=== PATIENT | female | born 1970 | race Caucasian/White ===

== ENCOUNTER 2017-09-23 06:51 | Day surgery (SDC) | payer OTHER, BC ==
[2017-09-23] MEDS ORDERED: CEFAZOLIN/SWI 2gm 2 GM/20 ML SYR IV SCH (07:00)
[2017-09-23 07:10] LABS: Specific Gravity > 1.030 (1.005-1.030)
[2017-09-23] MEDS ORDERED: Ringers Lactate 1,000 ML IV ONE ×2 (07:36→10:07)
[2017-09-23] MEDS ORDERED: SCOPOLAMINE HYDROBROMIDE PATCH TD ONE (07:41)
[2017-09-23] MEDS ORDERED: NA CHLORIDE 0.9% 50 ML ONE (08:37)
[2017-09-23] MEDS ORDERED: VASOPRESSIN 20 UNIT/ML VIAL ONE (08:37)
[2017-09-23] MEDS ORDERED: FENTANYL CITR 100 MCG/2 ML ONE ×2 (08:39→09:31)
[2017-09-23] MEDS ORDERED: PROPOFOL 200 MG/20 ML VIAL IV ONE (08:39)
[2017-09-23] MEDS ORDERED: ROCURONIUM 50 MG/5 ML VIAL IV ONE (08:40)
[2017-09-23] MEDS ORDERED: LIDOCAINE 2% MPF 5 ML VIAL ONE (08:40)
[2017-09-23] MEDS ORDERED: ONDANSETRON 4 MG/2 ML VIAL ONE (08:41)
[2017-09-23] MEDS ORDERED: MIDAZOLAM HCL 2 MG/2 ML INJ ONE (08:43)
[2017-09-23] MEDS ORDERED: ALBUTEROL INHALER 60 PUFF/8 GM IH ONE (09:05)
[2017-09-23] MEDS ORDERED: DEXAMETHASONE 10 MG/ML VIAL ONE (09:06)
[2017-09-23] MEDS ORDERED: GLYCOPYRROLATE 0.2 MG/ML SYR ONE (09:22)
[2017-09-23] MEDS ORDERED: NEOSTIGMINE 1 MG/ML -5 ML SYRINGE ONE (09:31)
[2017-09-23] MEDS ORDERED: EPHEDRINE SULF 50 MG/5 ML SYR ONE (09:37)
[2017-09-23] MEDS: MEPERIDINE HCL 50 MG/ML AMP ONE ×2 (10:13→10:22)
[2017-09-23] MEDS ORDERED: HYDROCODONE/APAP 5/325 MG TAB ONE (11:09)
--- NOTE | 2017-09-23 20:09 | OP ---
Date of Procedure: 09/23/2017 Surgeon: Gaby Riley MD Preoperative Diagnoses: Heavy menstrual bleeding with regular cycles, dysmenorrhea, and desired ster ilization. Postoperative Diagnoses: Heavy menstrual bleeding with regular cycles, dysmenorrhea, and desired jael rilization. Procedures Performed: Hysteroscopy, endometrial ablation with HTA, laparoscopy, bilateral tubal liga tion with Falope rings. Anesthesia: General endotracheal. Specimens: None. Complications: None. Drains: None. Condition: Stable. Indications For Procedure: The patient is a 46-year-old with heavy bleeding and dysmenorrhea. She h as hypertension as well. Not a good candidate for oral contraceptives. After understanding the bene fits and risks of an endometrial ablation and tubal ligation, she was consented and brought to the OR . Description Of Procedure: The patient was given 2 g of Ancef preop. The patient was placed in a josé chayo lithotomy position after anesthesia. A pelvic exam was performed. Uterus was found to be about 10 week size, anteflexed. After abdomen, vulva, vagina, and perineum were prepped and draped in a st erile fashion. Lopez was placed to drain the bladder. The cervix was exposed with a bivalve speculu m. Anterior lip grasped with 2 Allis clamps. Direct hysteroscopy was performed after dilating the c ervix to about 18-Mongolian with dilators. Endometrium appeared to be unremarkable. No intracavitary l esions. Endometrial ablation HTA sheath that was primed already was used for the hysteroscopy, so we nt on to perform a cavity integrity test. There was no loss of fluid here. Then, the ablation cycle was started, a full 10 minute cycle with a 1.5 minute cooling cycle were all completed without inter ruption. There was a good ablation effect in the uterus. A VCare was inserted after the hysteroscope was removed. The Ray-Tecs were removed from the posterio r fornix. This area was then draped. A 1 cm infraumbilical incision was made with a scalpel using open laparoscopy technique. Fascia was exposed and incised and tagged with 0 Vicryl sutures. The peritoneum was entered bluntly. There was an adhesion of the omentum to the left of the midline, a single omental adhesion, this was left inta ct as this was not in my way to perform her tubal. The patient was placed in Trendelenburg position. After adequate insufflation, the suprapubic 5 mm port was placed after abdominal cavity was surveye d. There was micronodular change in both lobes of the liver. No liver masses were noted. The perit oneum appeared to be unremarkable. Omentum unremarkable as well. The patient was placed in T-cristel. Uterus appeared to be enlarged, but the tubes and ovaries appeared to be normal. The tubes were pic ked up, and they did not have any abnormal endometriosis or dilatation. So, there was no apparent en dometriosis to be found in the pelvic peritoneum on survey of the pelvic cavity. So went on to perfo rm a tubal ligation since there was no other indication for further surgery than that ligation. The 5 mm port was removed. An 8 mm port was placed for the Falope ring applicator. The 2 rings were loaded and the right tube about 5 cm from the proximal end was picked up, it was gradually milked in to the applicator and then the Falope ring deployed. With good application, good loop of tube was ob tained. Then, there was no bleeding. On the opposite side, similar test was performed pulling up an d milking the tube before the ring was applied. There was a good loop of tube inside the ring. Ther e was no bleeding at the mesosalpinx. Both tubes were well visualized, pictures taken, and there was minimal bleeding from the trocar site. The trocar was removed under direct vision in the suprapubic area. Then, the gas was desufflated. Lamont was removed. The fascia was closed with a 0 Vicryl borges ture. Retention sutures were placed. Tied together. The skin incisions were closed with the help o f 4-0 Monocryl sutures interrupted. The VCare and Lopez were removed. A D and C were not performed since there was no abnormal endometrium noted. The patient was recovered from anesthesia. Instrument, needle, and sponge counts were done before e end of the case x2 and were correct. She was taken to the PACU in stable condition. Toradol was g iven. She also will get a GI consult for micronodular liver changes in the liver suspicious with cir rhosis. No known history for this patient. So, this consult will be done postop. SUDHA/PIPER Voice ID: [id number] Report ID: [id number]
== END 2017-09-23 11:35 | disposition home or self-care (01) ==
LOC: OR 06:51
PROVIDERS: ATTEND Obstetrics & Gynecology
PROC: 0U5B8ZZ Destruction of Endometrium, Via Natural or Artificial Opening Endoscopic (ICD-10-PCS; principal; 2017-09-23 08:30)
PROC: 0UL74CZ Occlusion of Bilateral Fallopian Tubes with Extraluminal Device, Percutaneous Endoscopic Approach (ICD-10-PCS; 2017-09-23 08:30)
DX: N92.0 Excessive and frequent menstruation with regular cycle (principal); Z30.2 Encounter for sterilization; N94.6 Dysmenorrhea, unspecified; I10 Essential (primary) hypertension; E78.5 Hyperlipidemia, unspecified; E03.9 Hypothyroidism, unspecified; F41.9 Anxiety disorder, unspecified; F17.210 Nicotine dependence, cigarettes, uncomplicated
CPT/HCPCS: 81025; J0690; J1100; J2175; J2250; J2405; J2710; J3010

== ENCOUNTER 2018-06-24 02:43 | Emergency (ER) | payer BC, OTHER ==
[2018-06-24] MEDS ORDERED: IPRATROPIUM BROM 0.5MG/2.5ML ONE (03:16)
[2018-06-24] MEDS ORDERED: ALBUTEROL 2.5 MG/3 ML NEB SOL ONE (03:16)
[2018-06-24 03:35] LABS: Absolute Lymphocytes (CBC) 3.2 K/uL (0.7-4.9); Absolute Monocytes 0.6 K/uL (0.1-1.3); Absolute Neutrophil 8.6 K/uL (1.8-8.0); Basophils % 0.4 % (0-1.3); Eosinophils % 2.2 % (0-4.4); Hematocrit 38.3 % (36.0-45.0); Lymphocytes % 25.4 % (15.3-44.8); MPV 9.8 fL (7.6-11.3); Monocytes % 5.1 % (3.3-12.3); RBC Red Blood Cell Count 4.41 M/uL (3.86-4.86)
[2018-06-24 03:38] LABS: Protime INR 1.06
[2018-06-24] MEDS ORDERED: METHYLPREDNISOLONE 125 MG INJ ONE (03:44)
[2018-06-24 03:52] LABS: ALT/SGPT 24 U/L (12-78); AST/SGOT 18 U/L (15-37); Albumin 3.4 g/dL (3.4-5.0); Alkaline Phosphatase 99 U/L (45-117); BUN Blood Urea Nitrogen 5 mg/dL (7-18); Bicarbonate 23 mmol/L (21-32); Bilirubin Direct 0.2 mg/dL (0-0.2); Bilirubin Total 0.5 mg/dL (0.2-1.0); CKMB Creatine Kinase MB < 1.0 ng/mL (0.3-3.6); Creatine Phosphokinase 72 U/L (26-192); Glucose Level 116 mg/dL (74-106); Lipase 80 U/L (73-393); NT PRO-BNP 100 pg/mL (<125); Potassium 3.1 mmol/L (3.5-5.1); Protein, Total 7.3 g/dL (6.4-8.2); Sodium Level 135 mmol/L (136-145); Troponin (Emerg Dept Use Only) < 0.02 ng/mL (0.0-0.045)
[2018-06-24 05:20] LABS: Blood Gas Oxyhemoglobin 96.6 % (94-97); Blood O2 Saturation 99.2 % (92-98.5)
--- NOTE | 2018-06-24 05:23 | EDPHYS ---
Physician Documentation [facility] Name: Iqra Morales Age: 47 yrs Sex: Female : 1970 Arrival Date: 06/24/2018 Time: 02:44 Bed 8 Private MD: Gokul Butt R ED Physician Johan Huertas HPI: 06/24 05:14 This 47 yrs old Female presents to ER via Ambulatory with complaints of pkl Breathing Difficulty, Cough. 05:14 The patient has shortness of breath at rest. Onset: The symptoms/episode began/occurred pkl 3 day(s) ago. Associated signs and symptoms: Pertinent positives: productive cough. 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 ak1 Historical: - Allergies: 02:57 No Known Allergies; ak1 - Home Meds: 02:57 Zocor 40 mg Oral tab 1 tab once daily [Active]; hydrochlorothiazide 25 mg Oral tab 1 ak1 tab once daily [Active]; Norvasc 10 mg Oral tab 1 tab once daily [Active]; Sectral 200 mg oral cap 1 cap 2 times per day [Active]; Synthroid 75 mcg Oral tab 1 tab once daily [Active]; Xanax 0.5 mg Oral tab 1 tab daily [Active]; Paxil 20 mg Oral tab 1 tab once daily [Active]; - PMHx: 02:57 Hypertension; Depression; Hyperlipidemia; Hypothyroidism; ak1 - PSHx: 02:57 Tonsillectomy; Tubal ligation; ak1 - Immunization history:: Adult Immunizations unknown. - Social history:: Smoking status: Patient uses tobacco products, smokes one-half pack cigarettes per day. - Ebola Screening: : No symptoms or risks identified at this time. ROS: 05:14 Eyes: Negative for injury, pain, redness, and discharge, ENT: Negative for injury, pkl pain, and discharge, Neck: Negative for injury, pain, and swelling, Cardiovascular: Negative for chest pain, palpitations, and edema. 05:14 Respiratory: Positive for cough, with yellow sputum, shortness of breath, wheezing. 05:14 Abdomen/GI: Negative for abdominal pain, nausea, vomiting, and diarrhea. 05:14 Back: Negative for acute changes. 05:14 : Negative for urinary symptoms. 05:14 MS/extremity: Negative for acute changes. 05:14 Skin: Negative for rash. 05:14 Neuro: Negative for altered mental status. Exam: 05:14 Head/Face: Normocephalic, atraumatic. Eyes: Pupils equal round and reactive to light, pkl extra-ocular motions intact. Lids and lashes normal. Conjunctiva and sclera are non-icteric and not injected. Cornea within normal limits. Periorbital areas with no swelling, redness, or edema. ENT: Nares patent. No nasal discharge, no septal abnormalities noted. Tympanic membranes are normal and external auditory canals are clear. Oropharynx with no redness, swelling, or masses, exudates, or evidence of obstruction, uvula midline. Mucous membranes moist. Neck: Trachea midline, no thyromegaly or masses palpated, and no cervical lymphadenopathy. Supple, full range of motion without nuchal rigidity, or vertebral point tenderness. No Meningismus. Chest/axilla: Normal chest wall appearance and motion. Nontender with no deformity. No lesions are appreciated. Cardiovascular: Regular rate and rhythm with a normal S1 and S2. No gallops, murmurs, or rubs. Normal PMI, no JVD. No pulse deficits. 05:14 Respiratory: the patient does not display signs of respiratory distress, Respirations: labored breathing, that is mild, Breath sounds: bronchial sounds, that are moderate, are scattered, rhonchi, that are moderate, are scattered. 05:14 Abdomen/GI: Bowel sounds: normal, Palpation: abdomen is soft and non-tender. 05:14 Back: Exam negative for acute changes. 05:14 : Exam negative for acute changes. 05:14 Musculoskeletal/extremity: Exam is negative for acute changes. 05:14 Skin: Exam negative for rash. 05:14 Neuro: Orientation: is normal, Mentation: is normal, Cranial nerves: grossly normal, Motor: is normal. Vital Signs: 02:52 BP 128 / 75; Pulse 90; Resp 22; Temp 98.7(O); Pulse Ox 89% on R/A; Weight 104.33 kg ak1 (R); Height 5 ft. 2 in. (157.48 cm) (R); Pain 0/10; 04:10 BP 128 / 68; Pulse 86; Resp 18; Pulse Ox 97% on 3 lpm NC; tl2 05:02 BP 109 / 58; Pulse 88; Resp 18; Pulse Ox 95% on 3 lpm NC; tl2 05:30 BP 112 / 65; Pulse 87; Resp 18; Pulse Ox 93% on R/A; tl2 02:52 Body Mass Index 42.07 (104.33 kg, 157.48 cm) ak1 MDM: 03:16 Patient medically screened. pkl 05:20 Data reviewed: vital signs, nurses notes, lab test result(s), EKG, radiologic studies, pkl plain films. 06/24 03:19 Order name: BMP; Complete Time: 05:10 tl2 06/24 03:19 Order name: CBC with Diff; Complete Time: 05:10 tl2 06/24 03:19 Order name: Ckmb; Complete Time: 05:10 tl2 06/24 03:19 Order name: CPK; Complete Time: 05:10 tl2 06/24 03:19 Order name: D-Dimer; Complete Time: 05:10 2 06/24 03:19 Order name: Hepatic Function; Complete Time: 05:10 06/24 03:19 Order name: Lipase; Complete Time: 05:10 2 06/24 03:19 Order name: Magnesium; Complete Time: 05:10 tl2 06/24 03:19 Order name: NT PRO-BNP; Complete Time: 05:10 2 06/24 03:19 Order name: PT-INR; Complete Time: 05:10 2 06/24 03:19 Order name: Ptt, Activated; Complete Time: 05:10 06/24 03:19 Order name: Troponin (emerg Dept Use Only); Complete Time: 05:10 06/24 03:19 Order name: Lactate; Complete Time: 05:10 2 06/24 03:19 Order name: Procalcitonin; Complete Time: 05:10 tl2 06/24 03:19 Order name: XRAY Chest Pa And Lat (2 Views) 2 06/24 03:19 Order name: EKG; Complete Time: 03:20 tl2 06/24 03:19 Order name: Cardiac monitoring; Complete Time: 03:21 tl2 06/24 03:19 Order name: EKG - Nurse/Tech; Complete Time: 03:52 tl2 06/24 03:19 Order name: IV Saline Lock; Complete Time: 03:21 tl2 06/24 03:19 Order name: Labs collected and sent; Complete Time: 03:21 tl2 06/24 03:19 Order name: O2 Per Protocol; Complete Time: 03:21 tl2 06/24 03:19 Order name: O2 Sat Monitoring; Complete Time: 03:21 tl2 06/24 03:30 Order name: ABG; Complete Time: 07:01 pkl Administered Medications: 03:21 Drug: Albuterol - atroVENT (3:1) (2.5 mg - 0.5 mg) 3 ml Route: Nebulizer; tl2 04:00 Follow up: Response: No adverse reaction; Marked relief of symptoms tl2 03:37 Drug: SOLU-Medrol 125 mg Route: IVP; Site: right antecubital; tl2 04:00 Follow up: Response: No adverse reaction; Marked relief of symptoms tl2 05:21 CANCELLED (wrong order): Rocephin 1 grams IV at bolus once; Given slow IV push per tl2 pharmacy instructions 05:27 Drug: Rocephin 1 grams Route: IV; Rate: bolus; Site: right antecubital; tl2 05:55 Follow up: Response: No adverse reaction; IV Status: Completed infusion tl2 05:28 Drug: K-Dur 40 mEq Route: PO; tl2 05:55 Follow up: Response: No adverse reaction tl2 Disposition: 06/24/18 05:22 Discharged to Home. Impression: Asthmatic bronchitis. - Condition is Stable. - Prescriptions for Augmentin 875- 125 mg Oral Tablet - take 1 tablet by ORAL route every 12 hours for 7 days; 14 tablet. Albuterol Sulfate 90 mcg/actuation - inhale 1-2 puff by INHALATION route every 4-6 hours; 1 Inhaler. Guaifenesin AC 10- 100 mg/5 mL Oral Liquid - take 10 milliliters by ORAL route every 8 hours As needed; 120 milliliter. - Medication Reconciliation Form, Thank You Letter, Antibiotic Education, Prescription Opioid Use form. - Follow up: Gokul Butt MD; When: 2 - 3 days; Reason: Re-evaluation by your physician. - Problem is new. - Symptoms have improved. Signatures: Dispatcher [employer] EDMS Johan Huertas MD MD pkl Marii Campuzano RN RN ak1 Wan, Devi, RN RN tl2 Corrections: (The following items were deleted from the chart) 05:21 05:19 Rocephin 1 grams IV at bolus once; Given slow IV push per pharmacy instructions tl2 ordered. tl2 05:21 05:21 Rocephin 1 grams IV at bolus once; Given slow IV push per pharmacy instructions tl2 ordered. tl2 05:55 05:22 06/24/2018 05:22 Discharged to Home. Impression: Asthmatic bronchitis. Condition tl2 is Stable. Forms are Medication Reconciliation Form, Thank You Letter, Antibiotic Education, Prescription Opioid Use. Follow up: Gokul Butt; When: 2 - 3 days; Reason: Re-evaluation by your physician. Problem is new. Symptoms have improved. pkl
--- NOTE | 2018-06-24 05:23 | ER ---
Nurse's Notes [facility] Name: Iqra Morales Age: 47 yrs Sex: Female : 1970 Arrival Date: 06/24/2018 Time: 02:44 Bed 8 Private MD: Gokul Butt R Diagnosis: Asthmatic bronchitis Presentation: 06/24 02:54 Presenting complaint: Patient states: cough, SOB, fever X3 days COUNSELLING PSYCHOLOGIST. Transition of ak1 care: patient was not received from another setting of care. Onset of symptoms is unknown. Risk Assessment: Do you want to hurt yourself or someone else? Patient reports no desire to harm self or others. Initial Sepsis Screen: Does the patient meet any 2 criteria? No. Patient's initial sepsis screen is negative. Does the patient have a suspected source of infection? No. Patient's initial sepsis screen is negative. Care prior to arrival: None. 02:54 Method Of Arrival: Ambulatory ak1 02:54 Acuity: BIANCA 3 ak1 Triage Assessment: 02:57 General: Appears uncomfortable, Behavior is calm, cooperative. Pain: Denies pain. EENT: ak1 No signs and/or symptoms were reported regarding the EENT system. Neuro: No deficits noted. Cardiovascular: No deficits noted. Respiratory: Reports shortness of breath cough that is air hunger Airway is patent Onset: The symptoms/episode began/occurred 3 days COUNSELLING PSYCHOLOGIST, the patient has moderate shortness of breath. GI: No signs and/or symptoms were reported involving the gastrointestinal system. : No signs and/or symptoms were reported regarding the genitourinary system. Derm: No signs and/or symptoms reported regarding the dermatologic system. Musculoskeletal: No signs and/or symptoms reported regarding the musculoskeletal system. 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 ak1 Historical: - Allergies: 02:57 No Known Allergies; ak1 - Home Meds: 02:57 Zocor 40 mg Oral tab 1 tab once daily [Active]; hydrochlorothiazide 25 mg Oral tab 1 ak1 tab once daily [Active]; Norvasc 10 mg Oral tab 1 tab once daily [Active]; Sectral 200 mg oral cap 1 cap 2 times per day [Active]; Synthroid 75 mcg Oral tab 1 tab once daily [Active]; Xanax 0.5 mg Oral tab 1 tab daily [Active]; Paxil 20 mg Oral tab 1 tab once daily [Active]; - PMHx: 02:57 Hypertension; Depression; Hyperlipidemia; Hypothyroidism; ak1 - PSHx: 02:57 Tonsillectomy; Tubal ligation; ak1 - Immunization history:: Adult Immunizations unknown. - Social history:: Smoking status: Patient uses tobacco products, smokes one-half pack cigarettes per day. - Ebola Screening: : No symptoms or risks identified at this time. Screenin:59 Abuse screen: Denies threats or abuse. Denies injuries from another. Nutritional ak1 screening: No deficits noted. Tuberculosis screening: No symptoms or risk factors identified. Fall Risk None identified. Assessment: 02:58 Reassessment: Patient appears in no apparent distress at this time. No changes from ak1 previously documented assessment. see triage assessment. pt placed on 2L oxygen via NC with 92%O2 saturation. 02:58 Respiratory: Breath sounds with wheezes bilaterally. tl2 02:59 Respiratory: Airway is patent Respiratory effort is labored. ak1 04:00 Reassessment: Patient appears in no apparent distress at this time. Patient and/or tl2 family updated on plan of care and expected duration. Pain level reassessed. Patient is alert, oriented x 3, equal unlabored respirations, skin warm/dry/pink. Patient states feeling better. 05:00 Reassessment: Patient appears in no apparent distress at this time. Patient and/or tl2 family updated on plan of care and expected duration. Pain level reassessed. Patient is alert, oriented x 3, equal unlabored respirations, skin warm/dry/pink. 05:53 Reassessment: Patient appears in no apparent distress at this time. Patient and/or tl2 family updated on plan of care and expected duration. Pain level reassessed. Patient is alert, oriented x 3, equal unlabored respirations, skin warm/dry/pink. pt verbalized understanding of discharge instructions, need for follow up and prescription usage Patient states feeling better. Cardiovascular: Rhythm is sinus rhythm. Vital Signs: 02:52 BP 128 / 75; Pulse 90; Resp 22; Temp 98.7(O); Pulse Ox 89% on R/A; Weight 104.33 kg ak1 (R); Height 5 ft. 2 in. (157.48 cm) (R); Pain 0/10; 04:10 BP 128 / 68; Pulse 86; Resp 18; Pulse Ox 97% on 3 lpm NC; tl2 05:02 BP 109 / 58; Pulse 88; Resp 18; Pulse Ox 95% on 3 lpm NC; tl2 05:30 BP 112 / 65; Pulse 87; Resp 18; Pulse Ox 93% on R/A; tl2 02:52 Body Mass Index 42.07 (104.33 kg, 157.48 cm) ak1 ED Course: 02:44 Patient arrived in ED. am2 02:44 Gokul Butt MD is Private Physician. am2 02:52 Marii Campuzano, RN is Primary Nurse. ak1 02:52 Arm band placed on Patient placed in an exam room, on a stretcher, on oxygen, on pulse ak1 oximetry, Patient notified of wait time. 02:54 Triage completed. ak1 02:58 No provider procedures requiring assistance completed. tl2 02:59 Patient has correct armband on for positive identification. Placed in gown. Bed in low ak1 position. Side rails up X 1. Adult w/ patient. Pulse ox on. NIBP on. 03:16 Johan Huertas MD is Attending Physician. pkl 03:22 Inserted saline lock: 20 gauge in right antecubital area, using aseptic technique. tl2 Blood collected. 03:24 Radiology exam delayed due to patient receiving breathing treatment at this time. sg4 03:41 Patient moved to radiology via wheelchair. sg4 03:42 X-ray completed. Patient tolerated procedure well. sg4 03:42 Patient moved back from radiology. sg4 03:45 XRAY Chest Pa And Lat (2 Views) In Process Unspecified. EDMS 05:21 Gokul Butt MD is Referral Physician. pkl 05:54 IV discontinued, intact, bleeding controlled, No redness/swelling at site. Pressure tl2 dressing applied. Administered Medications: 03:21 Drug: Albuterol - atroVENT (3:1) (2.5 mg - 0.5 mg) 3 ml Route: Nebulizer; tl2 04:00 Follow up: Response: No adverse reaction; Marked relief of symptoms tl2 03:37 Drug: SOLU-Medrol 125 mg Route: IVP; Site: right antecubital; tl2 04:00 Follow up: Response: No adverse reaction; Marked relief of symptoms tl2 05:21 CANCELLED (wrong order): Rocephin 1 grams IV at bolus once; Given slow IV push per tl2 pharmacy instructions 05:27 Drug: Rocephin 1 grams Route: IV; Rate: bolus; Site: right antecubital; tl2 05:55 Follow up: Response: No adverse reaction; IV Status: Completed infusion tl2 05:28 Drug: K-Dur 40 mEq Route: PO; tl2 05:55 Follow up: Response: No adverse reaction tl2 Outcome: 05:22 Discharge ordered by . shahram 05:54 Discharged to home ambulatory, with family. tl2 05:54 Condition: stable 05:54 Discharge instructions given to patient, Instructed on discharge instructions, follow up and referral plans. medication usage, Demonstrated understanding of instructions, follow-up care, medications, Prescriptions given X 4. 05:55 Patient left the ED. tl2 Signatures: Dispatcher [employer] EDJohan Flood MD MD pkl Krenek, Amber, RN RN ak1 Devi Wan RN RN tl2 Yadira Zhong Susana 4
[2018-06-24] MEDS ORDERED: POTASSIUM CL SA 10 MEQ TAB PO ONE (05:33)
[2018-06-24] MEDS ORDERED: CEFTRIAXONE/SWI 1gm 1 GM/10 ML SYR ONE (05:33)
--- NOTE | 2018-06-24 08:38 | RAD REPORT ---
EXAM DESCRIPTION: RAD - Chest Pa And Lat (2 Views) - 06/24/2018 3:46 am CLINICAL HISTORY: Cough, fever, shortness of breath COMPARISON: None. TECHNIQUE: PA and lateral views of the chest were obtained. FINDINGS: The lungs are normal volume. Patchy opacification is present in the medial right lung base partially obscuring the right heart border. Patient has a mild overall prominence of the interstitia l markings with the baseline for the patient unknown. Heart size is normal and central vasculature is within normal limits. No pleural effusion or pneu mothorax seen. No acute bony finding noted. No aortic abnormality. IMPRESSION: Small right middle lobe pneumonia.
--- NOTE | 2018-06-24 14:37 | EKG ---
Test Date: 2018-06-24 Test Time: 03:47:57 Medical Accounts Receivable Specialist: JAMES MEASUREMENT RESULTS: Intervals: Rate: 84 RI: 148 QRSD: 86 QT: 410 QTc: 484 [place]: P: 49 RI: 148 QRS: -29 T: 55 INTERPRETIVE STATEMENTS: Normal sinus rhythm Possible Left atrial enlargement Low voltage QRS Prolonged QT Abnormal ECG No previous ECG available for comparison Electronically Signed On 06-24-18 14:35:31 CONTACT LENS POLISHER by Aureliano Garces
== END 2018-06-24 05:55 | disposition home or self-care (01) ==
LOC: ER 02:43
DX: J45.909 Unspecified asthma, uncomplicated (principal); J18.9 Pneumonia, unspecified organism; R94.31 Abnormal electrocardiogram [ECG] [EKG]; E03.9 Hypothyroidism, unspecified; E78.5 Hyperlipidemia, unspecified; I10 Essential (primary) hypertension; F32.9 Major depressive disorder, single episode, unspecified; F17.210 Nicotine dependence, cigarettes, uncomplicated; Z79.899 Other long term (current) drug therapy
CPT/HCPCS: 36415; 71046; 80048; 80076; 82550; 82553; 82805; 83605; 83690; 83735; 83880; 84145; 84484; 85025; 85379; 85610; 85730; 93005; 94640; 96365; 96375; 99285; J0696; J2930

== ENCOUNTER 2019-01-21 06:30 | Day surgery (SDC) | payer OTHER ==
[2019-01-18 11:48] LABS: Absolute Lymphocytes (CBC) 2.3 K/uL (0.7-4.9); Basophils % 0.7 % (0-1.3); MPV 9.3 fL (7.6-11.3)
[2019-01-18 11:53] LABS: Urine Appearance CLEAR; Urine Bilirubin NEGATIVE (NEG); Urine Blood NEGATIVE (NEG); Urine Color DK YELLOW; Urine Glucose NEGATIVE (NEG); Urine Protein TRACE (NEG); Urine Specific Gravity 1.015 (1.005-1.030)
[2019-01-18 11:54] LABS: Urine Microscopic Reflex ORDER UMIC
[2019-01-18 12:05] LABS: Urine Bacteria <20 /HPF (<20); Urine Culture Reflex Order NOT NEEDED; Urine RBC <5 /HPF (NONE SEEN)
[2019-01-20 08:19] LABS: Specific Gravity 1.025 (1.005-1.030)
--- OUTSIDE RECORDS SUMMARY | 2019-01-21 06:38 | XMS REPORT ---
:1970 [facility] Address [address] Mel[address]dez [address] [place] [id number] Care Team Providers Name Role Phone Unavailable Unavailable Unavailable Problems This patient has no known problems. Allergies, Adverse Reactions, Alerts This patient has no known allergies or adverse reactions. Medications This patient has no known medications.
[2019-01-21] MEDS ORDERED: Ringers Lactate 1,000 ML IV ONE ×2 (06:55→11:33)
[2019-01-21] MEDS ORDERED: SCOPOLAMINE HYDROBROMIDE PATCH TD ONE (06:56)
[2019-01-21] MEDS: CEFAZOLIN 3 GM in NA CHLORIDE 0.9% 100 ML IVPB SCH ×2 (07:16→07:30)
[2019-01-21] MEDS ORDERED: NS 0.9% VIAL 20 ML ONE (07:26)
[2019-01-21] MEDS ORDERED: ROCURONIUM 50 MG/5 ML VIAL IV ONE (07:28)
[2019-01-21] MEDS ORDERED: PROPOFOL 200 MG/20 ML VIAL IV ONE (07:28)
[2019-01-21] MEDS ORDERED: ONDANSETRON 4 MG/2 ML VIAL ONE (07:28)
[2019-01-21] MEDS ORDERED: LIDOCAINE 2% MPF 5 ML VIAL ONE (07:28)
[2019-01-21] MEDS ORDERED: dexAMETHasone 4 MG/ML VIAL ONE (07:28)
[2019-01-21] MEDS ORDERED: MIDAZOLAM HCL 2 MG/2 ML INJ ONE (07:28)
[2019-01-21] MEDS ORDERED: FENTANYL CITR 250 MCG/5 ML ONE (07:28)
[2019-01-21] MEDS ORDERED: VECURONIUM 10 MG/VIAL IV ONE (07:32)
[2019-01-21] MEDS ORDERED: NA CHLORIDE 0.9% 1,000 ML ONE (10:01)
[2019-01-21] MEDS ORDERED: KETOROLAC 30 MG/ML INJ ONE (10:06)
[2019-01-21] MEDS ORDERED: DIPHENHYDRAMINE 50 MG/ML VIAL ONE (10:07)
[2019-01-21] MEDS ORDERED: MEPERIDINE HCL 25 MG/0.5 ML ONE (10:23)
[2019-01-21] MEDS ORDERED: GLYCOPYRROLATE 0.2 MG/ML SYR ONE (10:25)
[2019-01-21] MEDS ORDERED: NEOSTIGMINE 1 MG/ML -10 ML VIAL ONE (10:29)
[2019-01-21] MEDS: FENTANYL CITR 100 MCG/2 ML ONE ×2 (11:00→11:05)
--- NOTE | 2019-01-21 11:57 | OP ---
Date of Procedure: 01/21/2019 Surgeon: Gaby Riley MD Supervisor Personnel Clerks: Jenniefr Perez. Preoperative Diagnoses: Abnormal uterine bleeding, l/a; failed ablation; dysmenorrhea. Postoperative Diagnoses: Abnormal uterine bleeding, l/a; failed ablation; dysmenorrhea; omental adhe sions. Procedure Performed: Total laparoscopic hysterectomy, bilateral salpingectomy, omental adhesion lysi s of adhesions, and cystoscopy with insertion of left ureteric Glidewire and removal. Anesthesia: General endotracheal. Estimated Blood Loss: Minimal. Specimens: Uterus and bilateral tubes. Complications: No complications. Drains: None. Condition: Stable. Indications: The patient is a 48-year-old with heavy menstrual bleeding, done with her childbearing. She had heavy endometrial curettings that was negative for atypia or malignancy. She underwent tub al ligation with an ablation for treatment of her bleeding. The bleeding recurred within a matter of a few months and had been intolerable for the patient, so we discussed about the options of either D epo progesterone shot or a hysterectomy. The patient wanted to proceed with a hysterectomy as this i s a definitive treatment and she has tried all other conservative methods and have failed. Description Of Procedure: After informed consent was verified, patient was brought to the OR. She w as given 3 g of Ancef since she is over 200 pounds, placed in a supine fashion on the operating table . After general anesthesia was given, patient was placed in a dorsal lithotomy position. Arms were tucked by the side. SCDs placed and started. After time-out was done, pelvic exam was performed. U terus anteflexed about 6 to 8 weeks. No adnexal masses. No significant prolapse. Abdomen, vulva, vagina, and perineum were prepped and draped in a sterile fashion. Lopez was placed to drain the bladder and attached to cysto tubing for retrograde filling. A large VCare was fixed in place in the usual fashion and this area was draped. A 1 cm supraumbilical incision was made in the midline with the scalpel and fascia incised, tagged wi th 0 Vicryl sutures on each side. Peritoneum picked up with 2 hemostats and incised with Metzenbaum, S retractors placed. Lamont introduced. Site of entry was checked, unremarkable. The liver appear ed to have micronodular change on both sides at all lobes. No masses were seen. Omentum unremarkable. The right ovary had follicular cyst, just undergoing ovulation it appeared to be, but no other abnormality. The left ovary was completely unremarkable. Tubes with Falope rings. scar seen. The omental adhesions were present right inferior to the umbilicus and so plan was to just place the left 5 port. Once this was done, LigaSure was used to take down the omental adhesions by creating wi ndows and taking them down from the anterior abdominal wall. Once this was done, the Lamont was slig htly advanced and a 10 mm suprapubic and left small right lower quadrant 5 mm ports were all placed u nder direct vision. The ureters were identified on both sides and were distorted in their locations. No other adhesions were seen. The 5 mm LigaSure was used to take down the utero-ovarian ligament, mesosalpinx, tube, ro und ligament, anterior broad ligament was opened up and posterior broad ligament was opened up as wel l. There was a significant amount of scar tissue here, so to get down a by push spread technique and by creating windows. Once this was done and passed the adhesions here, then came down to the uterin e vessels. The ureter was at least a cm away from the area of the vessels where they were ascending at the level of the cup. So, the peritoneum was picked up. The bladder flap was raised carefully. The bladder was taken down from the scar with sharp dissection using this knife and the Lig aSure. Once this was done on the right side, the posterior peritoneum was dissected all the way to t he left uterosacral and then the vessels were skeletonized with the LigaSure as well. Then, on the o pposite side, similar dissection was performed taking down the utero-ovarian ligament, mesosalpinx, t ube, round ligament, and the anterior broad ligament all the way connecting it to the bladder from on the side and posteriorly taking the peritoneum down to the left to the right uterosacral ligament. The broad ligament was taken down to skeletonize the vessels. Once these were done, the bladder flap was cleared up, vesicovaginal space was entered by using monopolar. Monopolar hook blade was used t o take down the vesicovaginal space pushing the bladder inferiorly and the VCare cup was exposed. Wi ndows were made on each side of the vessels medially. Bipolar basket tip was used to cauterize the v essels. Then, the cardinal ligaments were also taken down on the right side than on the left side th e vessels were taken down in a similar fashion. Cardinal ligaments were taken down in the similar fa shion. Circumferential colpotomy was performed with a monopolar hook blade and at the very end cut w ith the scissors at the level of the right uterosacral because it was very difficult to access the po sterior lateral part on the right. The uterus was pulled out through the vagina. The vaginal cuff had a small bleeder on the left end o f the cuff very close to the Colpotomy incision. The vessels were well sealed and completely hemosta tic. Then, the 0 Vicryl stitch was taken and placed at the left angle all the way through the fascia and the vaginal epithelium on both anterior and posterior sides and this was tied lateral to the ang le of the colpotomy incision. Similar stitch was placed on the opposite side and tied down. Then 2 f [id number]-ot-[id number] were placed in the middle to close the entire cuff and there was excellent closure. There was no need for a third stitch. Thorough irrigation and suction were performed. There was exc ellent hemostasis. The original bleeding on the left side was hemostatic after the sutures were plac ed and so there was no need for cautery at this point, decided to perform a cystoscopy to make sure t hat her ureters were without any suspected injury. After the tubes were picked up with LigaSure, they were taken down both on the left and right side pu lled out through the suprapubic trocar. The ovaries were completely healthy and well vascularized. Pictures were taken. Thorough irrigation and suction were performed in the pelvic cavity and then th e graspers on the bowel epiploicae they were removed. The trocars were then removed under direct vis ion. No evidence of any bleeding. Gas was desufflated. The patient was placed in supine fat flat p osition. The umbilical trocar was removed as well. After removing as much gas as possible, the fasc ia was closed at the with the tagged sutures, tied at both ends and subcutaneous 0 Vicryl simple sutu re was placed to close this. Suprapubic incision was very difficult to get to the fascia given the s ize of the patient's pannus, so left this alone, closed the subcutaneous tissues deeply with the help of a simple 0 Vicryl stitch. Final skin incisions with interrupted 4-0 Vicryl sutures and cystoscop y was performed after the Lopez and the vaginal bulb were removed a 17-Colombian sheath, 30-degree lens and normal saline were used. The bladder was completely inspected and was unremarkable. Both ureter ic orifices were well visualized. There was a strong jet of urine from the right on the left side. It was very delayed and therefore I had a concern whether this had any injury, passed a Glidewire, wh ich advanced very smoothly without any friction or resistance. There were 2 strong jets of urine from the left ureteric orifice. During the 10 minute period, I too k to perform the cystoscopy and observe the urinary stream. Then, the bladder was drained out. The scope was removed. The vaginal cuff was inspected as well wi th the scope removed. Then, all instrument, needle, and sponge counts were done and were correct at the case. The patient tolerated the procedure well. She will follow up with me in 1 week. All the instructions and restrictions were given and she will see a GI for her micronodular change. SUDHA/PIPER Voice ID: [id number] Report ID: [id number]
[2019-01-21] MEDS ORDERED: HYDROCODONE/APAP 5/325 MG TAB ONE (12:05)
== END 2019-01-21 12:50 | disposition home or self-care (01) ==
LOC: OR 06:30
PROVIDERS: ATTEND Obstetrics & Gynecology
PROC: 0UT74ZZ Resection of Bilateral Fallopian Tubes, Percutaneous Endoscopic Approach (ICD-10-PCS; 2019-01-21)
PROC: 0UT94ZZ Resection of Uterus, Percutaneous Endoscopic Approach (ICD-10-PCS; principal; 2019-01-21 07:30)
DX: D25.9 Leiomyoma of uterus, unspecified (principal); N83.8 Other noninflammatory disorders of ovary, fallopian tube and broad ligament; N92.0 Excessive and frequent menstruation with regular cycle; N94.6 Dysmenorrhea, unspecified; K66.0 Peritoneal adhesions (postprocedural) (postinfection); N83.01 Follicular cyst of right ovary; D50.0 Iron deficiency anemia secondary to blood loss (chronic); E03.9 Hypothyroidism, unspecified; I10 Essential (primary) hypertension; Z79.899 Other long term (current) drug therapy
CPT/HCPCS: 36415; 81003; 81015; 81025; 85025; 86850; 86900; 86901; 88307; J0690; J2175; J2250; J2405; J2704; J2710; J3010; J7030

== ENCOUNTER 2022-05-23 09:26 | Inpatient (IN) | payer BC, OTHER ==
--- OUTSIDE RECORDS SUMMARY | 2022-05-23 09:29 | XMS REPORT | Continuity of Care Document ---
:1970 Author Organization [facility] t Address [address] [place] [address] Care Team Providers Name Role Phone LALIWilber Primary Care Physician Unavailable RADIOLOGY Attending Clinician Unavailable Radiology Attending Clinician Unavailable Doctor Unassigned, [place] Attending Clinician Unavailable KEREN HAWKINS Attending Clinician Unavailable Lab, Adc Fam Pob I Attending Clinician Unavailable Ebrahim OFFLINE EDITORKeren Attending Clinician VENUS OROPEZA Admitting Clinician Unavailable Payers Payer Name Policy Type Policy Number Effective Date Expiration Date S [facility] [id number] 2021 00:00:00 Problems Condition Condition Condition Status Onset Resolution Last Treating Co mments Source Name Details Category Date Date Treatment Clinician Date No known No known Disease Unive rs active active ity of problems problems [facility] Allergies, Adverse Reactions, Alerts Allergy Allergy Status Severity Reaction(s) Onset Inactive Treating Comm ents Source Name Type Date Date Clinician NO KNOWN Drug Active Univers ALLERGIE Class ity of S [facility] Social History Social Habit Start Date Stop Date Quantity Comments Source History of tobacco Cigarette Smoker University of use [facility] History SDOH University o f Alcohol Frequency [place] [facility] History SDOH University o f Alcohol Std Drinks [facility] History SDOH University o f Alcohol Binge [place] [facility] Exposure to Not sure University of SARS-CoV-2 (event) [facility] Alcohol intake 2016-10-29 2016-10-29 Current drinker Unive rsity of 00:00:00 00:00:00 of alcohol [facility] (finding) Branch Tobacco use and 2016-10-10 2016-10-10 Smokeless tobacco Un iversity of exposure 00:00:00 00:00:00 non-user [facility] Cigarettes smoked 2016-10-10 2016-10-10 Univers ity of current (pack per 00:00:00 00:00:00 ) - Reported Branch Alcohol Comment 2016-10-10 2016-10-10 Occasional Universit y of 00:00:00 00:00:00 Drinker [facility] Sex Ass[birth year] At [birth year] Universit y of 00:00:00 00:00:00 [facility] Smoking Status Start Date Stop Date Source Smokes tobacco daily 2016-10-10 00:00:00 Univers ity of [facility] Medications Ordered Filled Start Stop Current Ordering Indication Dosage Frequency Signature Comments Components Source Medication Medication Date Date Medication? Clinician (SIG) Name Name acebutolol Yes 200mg Take 200 Un saray (SECTRAL) 5-01 mg by ity of 200 mg 13:39: mouth 2 [place] capsule 03 (two) Medical times [place] daily. amLODIPine Yes 10mg Take 10 mg U nivers (NORVASC) 5-01 by mouth ity of 10 mg 13:39: daily. [address] levothyroxi Yes 25ug Take 25 Uni vers ne 5-01 mcg by ity of (SYNTHROID) 13:39: mouth [place] 25 mcg 03 every Medical tablet morning. Branch simvastatin Yes 40mg Take 40 mg Univers (ZOCOR) 40 5-01 by mouth ity o f mg tablet 13:39: at [place] [address] bedtime. Medical Branch hydroCHLORO Yes 25mg Take 25 mg Univers thiazide 25 5-01 by mouth ity of mg tablet 13:39: daily. [address] paroxetine Yes 20mg Take 20 mg U nivers 20 mg 5-01 by mouth ity of tablet 13:39: daily. [address] acebutolol Yes 200mg Take 200 Un saray (SECTRAL) 5-01 mg by ity of 200 mg 08:39: mouth 2 [place] capsule 03 (two) Medical times [place] daily. amLODIPine Yes 10mg Take 10 mg U nivers (NORVASC) 5-01 by mouth ity of 10 mg 08:39: daily. [address] levothyroxi Yes 25ug Take 25 Uni vers ne 5-01 mcg by ity of (SYNTHROID) 08:39: mouth [place] 25 mcg 03 every Medical tablet morning. Branch simvastatin Yes 40mg Take 40 mg Univers (ZOCOR) 40 5-01 by mouth ity o f mg tablet 08:39: at [place] [address] bedtime. Medical Branch hydroCHLORO Yes 25mg Take 25 mg Univers thiazide 25 5-01 by mouth ity of mg tablet 08:39: daily. [place] [facility] paroxetine Yes 20mg Take 20 mg U nivers 20 mg 5-01 by mouth ity of tablet 08:39: daily. [place] [facility] Branch acebutolol Yes 200mg Take 200 Un saray (SECTRAL) 5-01 mg by ity of 200 mg 08:39: mouth 2 [place] capsule 03 (two) Medical times [place] daily. amLODIPine Yes 10mg Take 10 mg U nivers (NORVASC) 5-01 by mouth ity of 10 mg 08:39: daily. [facility] Medical Branch levothyroxi Yes 25ug Take 25 Uni vers ne 5-01 mcg by ity of (SYNTHROID) 08:39: mouth [place] 25 mcg 03 every Medical tablet morning. Branch simvastatin Yes 40mg Take 40 mg Univers (ZOCOR) 40 5-01 by mouth ity o f mg tablet 08:39: at [place] [address] bedtime. Medical Branch hydroCHLORO Yes 25mg Take 25 mg Univers thiazide 25 5-01 by mouth ity of mg tablet 08:39: daily. [address] paroxetine Yes 20mg Take 20 mg U nivers 20 mg 5-01 by mouth ity of tablet 08:39: daily. [address] Procedures Procedure Date / Time Performed Performing Clinician [facility] e ASSIGNMENT OF BENEFITS 2022-01-14 19:07:58 Doctor Unassigned, No [facility] Name Medical Branch Encounters Start End Encounter Admission Attending Care Care Encounter Source Date/Time Date/Time Type Type Clinicians Facility Department ID 2022-01-14 2022-01-14 Outpatient R RADIOLOGY [facility] [id number] Univers 14:10:08 23:59:00 ity of [facility] 2022-01-14 2022-01-14 Hospital Radiology [facility] [id number] Univers 14:10:08 23:59:00 Encounter ANGLERBINA [id number] ity of [place] [id number] [facility] [id number] [facility] 807 Branch 2022-01-14 2022-01-14 Orders Doctor MARILOU [id number] Univers 00:00:00 00:00:00 Only Unassigned, LEX [id number] ity of [place] [facility] [id number] Mirza as [id number] [facility] 009 Branch 2020-01-07 2020-01-07 Outpatient R SHRUTHI [facility] [place] [id number] Univers 17:20:00 17:20:00 KEREN [facility] 2020-01-07 2020-01-07 Laboratory Lab, Adc Fam Pob I [facility] [id number] Univers 13:27:15 13:47:15 Only Keren Hawkins [id number] ity of [place] [id number] Mirza as Professio [id number] In dical [facility] 0[address] Branch Office Building One Results This patient has no known results.
[2022-05-23 09:51] LABS: Absolute Lymphocytes (CBC) 1.7 K/uL (0.7-4.9); Hematocrit 34.6 % (36.0-45.0); Lymphocytes % 10.6 % (15.3-44.8); MPV 9.4 fL (7.6-11.3); RBC Red Blood Cell Count 4.17 M/uL (3.86-4.86)
[2022-05-23 10:03] LABS: Protime INR 1.43
[2022-05-23 10:48] LABS: Bilirubin Total 1.7 mg/dL (0.2-1.0); Protein, Total 8.1 g/dL (6.4-8.2)
[2022-05-23 10:49] LABS: Potassium 2.2 mmol/L (3.5-5.1)
[2022-05-23 10:50] LABS: SARS-COV-2 RT PCR NEGATIVE (NEGATIVE)
[2022-05-23 11:37] LABS: Blood Gas Oxyhemoglobin 89.1 % (94-97); Blood O2 Saturation 91.9 % (92-98.5)
--- NOTE | 2022-05-23 11:58 | RAD REPORT ---
EXAM DESCRIPTION: [place] Single View05/23/2022 10:54 am CLINICAL HISTORY: Shortness of breath COMPARISON: 2018 FINDINGS: Moderate right and [id number] left pulmonary opacities. Heart is probably upper limits normal size IMPRESSION: Bilateral pulmonary opacities probably pneumonia. They should be followed until it has c leared to help exclude a post obstructive process/underlying mass
[2022-05-23] MEDS: POTASSIUM CL IV SCH ×2 (12:00→20:00)
[2022-05-23] MEDS: NA CHLORIDE 0.9% IV SCH ×2 (12:00→20:00)
--- NOTE | 2022-05-23 13:17 | RAD REPORT ---
EXAM DESCRIPTION: CT - Chest For Pe Angio - 05/23/2022 12:59 pm CLINICAL HISTORY: Shortness of breath COMPARISON: None. TECHNIQUE: Dynamically enhanced axial 3 mm thick images of the chest were obtained during administra tion of <100> mL Isovue 370 IV contrast. Coronal and oblique reconstruction images were generated and reviewed. Exam utilizes a protocol for optimal evaluation of pulmonary arterial tree. Maximum intensity projections 3D imaging was utilized All CT scans are performed using dose optimization technique as appropriate and may include automated exposure control or mA/KV adjustment according to patient size. FINDINGS: A pulmonary embolus is not seen. A thoracic aortic aneurysm is not noted. A pleural effusion is not seen. A pericardial effusion is not seen. Moderate bilateral ground-glass and alveolar lung opacities. Small amount of ascites upper abdomen IMPRESSION: Negative for a pulmonary embolism. Moderate bilateral lung opacities probably pneumonia
--- NOTE | 2022-05-23 13:33 | EDPHYS ---
Physician Documentation [facility] Name: Iqra Morales Age: 51 yrs Sex: Female : 1970 Arrival Date: 05/23/2022 Time: 09:27 Bed 2 Private MD: ED Physician Alonso Garnica HPI: 05/23 10:16 This 51 yrs old Female presents to ER via Ambulatory with complaints of Shortness Of kb Breath. 10:16 The patient has shortness of breath at rest. Onset: The symptoms/episode began/occurred kb this morning. Duration: The symptoms are continuous. The patient's shortness of breath is aggravated by exertion, is alleviated by application of supplemental oxygen. Associated signs and symptoms: Pertinent positives: non-productive cough. Severity of symptoms: At their worst the symptoms were severe in the emergency department the symptoms are unchanged. The patient has experienced similar episodes in the past, a few times. The patient has not recently seen a physician. Pt reports cough and congestion for 3-4 days, shortness of breath began this morning. Historical: - Allergies: 09:39 No Known Allergies; jl7 - PMHx: 09:33 Depression; Hyperlipidemia; Hypertension; Hypothyroidism; ss - Immunization history:: Adult Immunizations. ROS: 10:16 Constitutional: Negative for fever, chills, and weight loss. kb 10:16 ENT: Positive for sinus congestion. 10:16 Respiratory: Positive for cough, dyspnea on exertion, shortness of breath, wheezing. 10:16 All other systems are negative. Exam: 09:34 ECG was reviewed by the Attending Physician. kb 10:16 Constitutional: This is a well developed, well nourished patient who is awake, alert, kb and in no acute distress. Head/Face: Normocephalic, atraumatic. ENT: Moist Mucous membranes Cardiovascular: Regular rate and rhythm with a normal S1 and S2. No gallops, murmurs, or rubs. No pulse deficits. Abdomen/GI: Soft, non-tender. No distention Skin: Warm, dry with normal turgor. Normal color. MS/ Extremity: Pulses equal, no cyanosis. Neurovascular intact. Full, normal range of motion. Neuro: Awake and alert, GCS 15, oriented to person, place, time, and situation. Moves all extremities. Normal gait. Psych: Awake, alert, with orientation to person, place and time. Behavior, mood, and affect are within normal limits. 10:16 Respiratory: moderate respiratory distress is noted, Respirations: labored breathing, Breath sounds: wheezing: inspiratory expiratory that is moderate, is heard diffusely. Vital Signs: 09:27 Pulse Ox 70% on R/A; Weight 104.33 kg (R); Height 5 ft. 2 in. (157.48 cm) (R); mb9 09:31 BP 134 / 86; Pulse 82; Resp 25; Pulse Ox 95% on BiPAP; ss 09:45 BP 137 / 86; Pulse 80; Resp 32; Temp 98.9; Pulse Ox 93% on 100% BiPAP; mb9 10:22 BP 129 / 70; Pulse 76; Resp 34; Pulse Ox 93% on 100% BiPAP; mb9 11:06 BP 137 / 76; Pulse 77; Resp 32; Pulse Ox 91% on 100% BiPAP; mb9 12:16 BP 116 / 65; Pulse 78; Resp 28; Pulse Ox 93% on 100% BiPAP; mb9 13:19 BP 122 / 86; Pulse 79; Resp 32; Pulse Ox 91% on 100% BiPAP; mb9 15:02 BP 131 / 74; Pulse 77; Resp 26; Pulse Ox 93% on 100% BiPAP; mb9 09:27 Body Mass Index 42.07 (104.33 kg, 157.48 cm) mb9 MDM: 09:30 Patient medically screened. kb 09:36 Counseling: I had a detailed discussion with the patient and/or guardian regarding: ms3 smoking cessation. 10:15 Data reviewed: vital signs, nurses notes. Data interpreted: Pulse oximetry: on room air kb is 55 %. Interpretation: hypoxia. Plan: O2 by Mask applied. ED course: O2 sat 55% on room air on scene with EMS, 70% on room air upon arrival to ED. 95% on bipap. 10:16 Counseling: I had a detailed discussion with the patient and/or guardian regarding: the kb historical points, exam findings, and any diagnostic results supporting the discharge/admit diagnosis, the need for further work-up and treatment in the hospital. 13:32 Physician consultation: Obey Mclaughlin MD was contacted at 13:32, regarding admission, to the telemetry unit. patient's condition, and will see patient in ED. 14:27 ED course: Severe sepsis criteria met at 1158. Source (A): Pneumonia; SIRS criteria kb (B): WBC, RR; End Organ Damage (C): lactate and Bipap . 14:29 ED course: sepsis reevaluation complete. kb 05/23 09:31 Order name: Blood Culture Adult (2) kb 05/23 09:31 Order name: CBC with Diff; Complete Time: 10:14 kb 05/23 09:31 Order name: CMP; Complete Time: 10:50 kb 05/23 09:31 Order name: Lactate w/ 2H reflex if indic.; Complete Time: 10:51 kb 05/23 09:31 Order name: Protime (+inr); Complete Time: 10:14 kb 05/23 09:31 Order name: Ptt, Activated; Complete Time: 10:14 kb 05/23 09:31 Order name: COVID-19/FLU A+B; Complete Time: 10:51 kb 05/23 09:31 Order name: BNP; Complete Time: 10:50 kb 05/23 10:20 Order name: Glucose, Ancillary Testing; Complete Time: 10:27 EDMS 05/23 11:38 Order name: ABG Arterial Blood Gas; Complete Time: 11:40 EDMS 05/23 13:57 Order name: CBC with Automated Diff EDMS 05/23 13:57 Order name: CBC with Automated Diff EDMS 05/23 13:57 Order name: CBC with Automated Diff EDMS 05/23 13:57 Order name: CBC with Automated Diff EDMS 05/23 13:57 Order name: Comprehensive Metabolic Panel EDMS 05/23 13:57 Order name: Comprehensive Metabolic Panel EDMS 05/23 13:57 Order name: Comprehensive Metabolic Panel EDMS 05/23 13:57 Order name: Comprehensive Metabolic Panel EDMS 05/23 13:57 Order name: Magnesium EDMS 05/23 13:57 Order name: Magnesium EDMS 05/23 13:57 Order name: Phosphorus EDMS 05/23 13:57 Order name: Phosphorus EDMS 05/23 13:57 Order name: Protime (+INR) EDMS 05/23 13:57 Order name: Protime (+INR) EDMS 05/23 14:11 Order name: Magnesium kb 05/23 14:15 Order name: Lactate Sepsis 2 HR Follow-up; Complete Time: 14:21 EDND 05/23 14:26 Order name: Troponin High Sensitivity 05/23 14:57 Order name: ABG mb9 05/23 15:43 Order name: Magnesium; Complete Time: 18:38 EDND 05/23 15:51 Order name: Troponin High Sensitivity; Complete Time: 18:38 [facility] 05/23 09:31 Order name: Chest Single View XRAY; Complete Time: 12:02 kb 05/23 09:31 Order name: EKG; Complete Time: 09:32 kb 05/23 09:31 Order name: Accucheck; Complete Time: 10:24 kb 05/23 09:31 Order name: Cardiac monitoring; Complete Time: 09:33 kb 05/23 09:31 Order name: EKG - Nurse/Tech; Complete Time: 09:33 kb 05/23 09:31 Order name: IV Saline Lock - Large Bore; Complete Time: 09:44 kb 05/23 09:31 Order name: Labs collected and sent; Complete Time: 09:39 kb 05/23 09:31 Order name: O2 Per Protocol; Complete Time: 09:33 kb 05/23 12:06 Order name: CT Chest For PE Angio; Complete Time: 13:30 kb 05/23 13:57 Order name: CONS Physician Consult [facility] 05/23 13:57 Order name: NPO [facility] 05/23 13:59 Order name: Respiratory Therapy Consult [facility] 05/23 16:41 Order name: Basic Metabolic Panel; Complete Time: 18:38 [facility] 05/23 16:44 Order name: Lactate w/ 2H reflex if indic.; Complete Time: 18:38 [facility] 05/23 17:09 Order name: ABG Arterial Blood Gas; Complete Time: 18:38 [facility] 05/23 17:17 Order name: Procalcitonin; Complete Time: 18:38 [facility] 05/23 19:45 Order name: Lactate Sepsis 2 HR Follow-up [facility] 05/23 22:59 Order name: Lactate w/ 2H reflex if indic. [facility] 05/24 00:26 Order name: ABG Arterial Blood Gas [facility] 05/24 01:01 Order name: Basic Metabolic Panel [facility] 05/24 10:57 Order name: RAD [facility] 05/24 15:21 Order name: ABG Arterial Blood Gas [facility] 05/23 09:31 Order name: O2 Sat Monitoring; Complete Time: 09:33 kb 05/23 09:31 Order name: Vital Signs; Complete Time: 09:57 kb 05/23 14:26 Order name: John; Complete Time: 14:57 mb9 EC:34 Rate is 81 beats/min. Rhythm is regular. QRS [place] is Normal. MT interval is normal at kb 150 msec. QRS interval is normal at 86 msec. QT interval is prolonged at 539 msec. Administered Medications: 09:20 Drug: Magnesium Sulfate 1 grams Route: IVPB; Infused Over: 30 mins; Site: left mb9 antecubital; 10:20 Follow up: Response: No adverse reaction; IV Status: Completed infusion mb9 10:05 Drug: Albuterol 2.5 mg Route: Inhalation; mb9 10:37 Follow up: Response: No adverse reaction mb9 10:05 Drug: AtroVENT (ipratropium) Aerosol 0.5 mg Route: Inhalation; mb9 10:37 Follow up: Response: No adverse reaction mb9 11:05 Drug: Rocephin (cefTRIAXone) 1 grams Route: IV; Rate: calculated rate; Site: right mb9 antecubital; 12:16 Follow up: Response: No adverse reaction; IV Status: Completed infusion mb9 11:20 Drug: Zithromax (azithromycin) 500 mg Route: IVPB; Infused Over: 1 hrs; Site: left mb9 forearm; 12:31 Follow up: IV Status: Completed infusion mb9 12:31 Follow up: Response: No adverse reaction mb9 11:39 Drug: NS 0.9% with KCl 40 mEq/L 1000 ml Route: IV; Rate: 125 ml/hr; Site: right mb9 antecubital; 14:08 Drug: Potassium Chloride 40 mEq Route: PO; mb9 15:00 Follow up: Response: No adverse reaction mb9 14:08 Drug: Potassium Chloride 20 mEq Route: IV; Rate: calculated rate; Site: right mb9 antecubital; 16:00 Follow up: Response: No adverse reaction; IV Status: Infusion continued mb9 14:08 Drug: NS 0.9% 1000 ml Route: IV; Rate: 125 ml/hr; Site: right antecubital; mb9 16:30 Drug: Potassium Chloride 20 mEq Route: IV; Rate: calculated rate; Site: left forearm; mb9 Disposition: 09:36 PA/TRIALS MANAGER's history reviewed, patient interviewed, and examined. HPI: 51-year-old female ms3 with past medical history of depression, hyperlipidemia, hypertension, hypothyroidism presents for shortness of breath that began 3 days prior to arrival. Patient states her symptoms have become worse. [facility] EMS states on their arrival patient's room air oxygen saturation was 55%. Patient was placed on CPAP, given 125 mg Solu-Medrol, and continuous albuterol in route to the hospital. EMS notes improvement in patient's condition during transport. My personal exam of patient reveals: On exam patient is alert and oriented x4, in no apparent distress, nontoxic-appearing. Patient's heart rate is regular without murmurs rubs or gallops. Lungs significant for mild diffuse wheezing. Abdomen nontender to palpation with bowel sounds present. No lower extremity edema noted. 15:24 Critical Care:. ms3 15:24 Co-signature as Attending Physician, Alonso Garnica DO. ms3 Disposition Summary: 05/23/22 13:33 Hospitalization Ordered Hospitalization Status: Inpatient Admission kb Provider: Obey Mclaughlin Condition: Fair kb Problem: new kb Symptoms: are unchanged kb Bed/Room Type: Standard kb Location: Intensive Care Unit(05/24/22 14:10) em1 Room Assignment: 2-(05/24/22 14:10) em1 Diagnosis - Pneumonia, unspecified organism kb - Severe sepsis without septic shock kb - Hypoxia kb Forms: - Medication Reconciliation Form kb - SBAR form kb Critical care time excluding procedures: 15:24 Critical care time: Bedside Care: 35 minutes, Consultation: 10 minutes. Total time: 45 ms3 minutes Signatures: Dispatcher [employer] EDND Virginia Trevino FNP-C FNP-Wilner Lopez em1 Mercedes Fortune RN RN ss Elayne Leonardo RN RN jl7 Alonso Garnica DO DO ms3 Hailey Nicolas PA-C PA-C sb4 Tequila Bynum RN RN mb9 Corrections: (The following items were deleted from the chart) 13:54 13:33 Telemetry/MedSurg (Inpatient) kb kb 13:54 13:33 kb kb 14:12 09:34 Rate is 81 beats/min. Rhythm is regular. QRS [place] is Normal. MT interval is kb normal at 150 msec. QRS interval is normal at 86 msec. QT interval is normal at 539 msec. kb 16: 13:54 Intensive Care Unit kb ss 16:08 13:54 kb 05/24 14:10 05/23 16:08 [facility] ER [facility] em1 05/24 14:10 05/23 16:[facility]
--- NOTE | 2022-05-23 13:33 | ER ---
Nurse's Notes [facility] Name: Iqra Morales Age: 51 yrs Sex: Female : 1970 Arrival Date: 05/23/2022 Time: 09:27 Bed 2 Private MD: Diagnosis: Pneumonia, unspecified organism;Severe sepsis without septic shock;Hypoxia Presentation: 05/23 09:31 Chief complaint: EMS states: shortness of breath that began yesterday, is worse today. EMS placed CPAP after assessment. O2 on RA was 55%. temp 99.4 axillary. Coronavirus screen: Client denies travel out of the [place] in the last 14 days. Ebola Screen: Patient denies exposure to infectious person. Patient denies travel to an Ebola-affected area in the 21 days before illness onset. Initial Sepsis Screen: Does the patient meet any 2 criteria? RR > 20 per min. Does the patient have a suspected source of infection? No. Patient's initial sepsis screen is negative. Risk Assessment: Do you want to hurt yourself or someone else? Patient reports no desire to harm self or others. Onset of symptoms was May 23, 2022. Care prior to arrival: Medication(s) given: Albuterol Neb x 3, Atrovent Neb x 2, IV initiated. 20 GA, in the right antecubital area. 09:31 Method Of Arrival: Ambulatory 09:31 Acuity: BIANCA 2 Historical: - Allergies: 09:39 No Known Allergies; jl7 - PMHx: 09:33 Depression; Hyperlipidemia; Hypertension; Hypothyroidism; ss - Immunization history:: Adult Immunizations. Screenin:37 Abuse screen: Denies threats or abuse. Nutritional screening: No deficits noted. mb9 Tuberculosis screening: No symptoms or risk factors identified. Fall Risk None identified. Assessment: 09:28 Reassessment: RT at bedside. BiPAP placed. mb9 09:30 General: Appears distressed, uncomfortable, Behavior is anxious. Pain: Denies pain. mb9 Neuro: Lazo Agitation-Sedation Scale (RASS): 0 - Alert and Calm Level of Consciousness is awake, alert, obeys commands, Oriented to person, place, time, situation, Appropriate for age. Cardiovascular: Heart tones S1 S2 present Capillary refill is > 3 seconds Rhythm is regular. Respiratory: Reports shortness of breath at rest cough that is non-productive, Airway is patent Respiratory effort is labored, Respiratory pattern is tachypnea Patient placed on BiPAP: Inspiratory Pressure: 14 Expiratory (EPAP) Pressure: 9 FiO2%: 100 Respiratory Rate: 33 Breath sounds with wheezes bilaterally. GI: Abdomen is round distended, Bowel sounds present X 4 quads. Abd is non tender X 4 quads Abd is rigid X 4 quads. Patient currently denies diarrhea, nausea. : No signs and/or symptoms were reported regarding the genitourinary system. EENT: No signs and/or symptoms were reported regarding the EENT system. Derm: Skin is intact, Skin is dry, Skin is pale, Skin temperature is cool. Musculoskeletal: Range of motion: intact in all extremities. 09:40 Reassessment: 1st set of blood cultures sent. mb9 10:08 Reassessment: 2nd set of blood cultures sent. mb9 10:38 General: Appears comfortable, Behavior is calm, cooperative, appropriate for age. Pain: mb9 Denies pain. Neuro: Level of Consciousness is awake, alert, obeys commands, Oriented to person, place, time, situation, Appropriate for age. Cardiovascular: Heart tones S1 S2 present Rhythm is regular. Respiratory: Airway is patent Respiratory effort is even, labored, Respiratory pattern is tachypnea. Derm: Skin is intact, Skin is dry, Skin is pale, Skin temperature is cool. 10:38 Reassessment: XRAY at bedside. mb9 11:45 Reassessment:. Pain: Denies pain. Neuro: Level of Consciousness is awake, alert, obeys mb9 commands, Oriented to person, place, time, situation, Appropriate for age. 11:45 Cardiovascular: Rhythm is regular. Respiratory: Airway is patent Respiratory effort is mb9 labored, Respiratory pattern is tachypnea. Derm: Skin is intact, Skin is dry, Skin is pale, Skin temperature is cool. 12:50 Reassessment: pt taken to CT accompanied by nurse and RT. mb9 13:09 General: Appears in no apparent distress. Behavior is calm, cooperative, appropriate mb9 for age. Pain: Denies pain. Neuro: Level of Consciousness is awake, alert, obeys commands, Oriented to person, place, time, situation, Appropriate for age. Cardiovascular: Rhythm is regular. Respiratory: Airway is patent Respiratory effort is even, labored, Respiratory pattern is tachypnea. Derm: Skin is intact, Skin is dry, Skin is pale, Skin temperature is cool. 15:00 General: Appears comfortable, Behavior is calm, cooperative, appropriate for age. Pain: mb9 Denies pain. Neuro: Level of Consciousness is awake, alert, obeys commands, Oriented to person, place, time, situation, Appropriate for age. Cardiovascular: Rhythm is regular. Respiratory: Airway is patent Respiratory effort is even, labored, Respiratory pattern is tachypnea. : Lopez in place Urine is clear. Derm: Skin is intact, Skin is dry, Skin is normal, Skin temperature is warm. Vital Signs: 09:27 Pulse Ox 70% on R/A; Weight 104.33 kg (R); Height 5 ft. 2 in. (157.48 cm) (R); mb9 09:31 BP 134 / 86; Pulse 82; Resp 25; Pulse Ox 95% on BiPAP; ss 09:45 BP 137 / 86; Pulse 80; Resp 32; Temp 98.9; Pulse Ox 93% on 100% BiPAP; mb9 10:22 BP 129 / 70; Pulse 76; Resp 34; Pulse Ox 93% on 100% BiPAP; mb9 11:06 BP 137 / 76; Pulse 77; Resp 32; Pulse Ox 91% on 100% BiPAP; mb9 12:16 BP 116 / 65; Pulse 78; Resp 28; Pulse Ox 93% on 100% BiPAP; mb9 13:19 BP 122 / 86; Pulse 79; Resp 32; Pulse Ox 91% on 100% BiPAP; mb9 15:02 BP 131 / 74; Pulse 77; Resp 26; Pulse Ox 93% on 100% BiPAP; mb9 09:27 Body Mass Index 42.07 (104.33 kg, 157.48 cm) mb9 ED Course: 09:22 EKG done, by ED staff, reviewed by Virginia BRAN. mb9 09:25 Patient has correct armband on for positive identification. Bed in low position. Call jl7 light in reach. Side rails up X2. Client placed on continuous cardiac and pulse oximetry monitoring. NIBP monitoring applied. 09:27 Patient arrived in ED. kj1 09:30 Virginia Trevino FNP-C [facility]. kb 09:30 Alonso Garnica DO is Attending Physician. kb 09:33 Triage completed. ss 09:35 Inserted saline lock: 20 gauge in left forearm, using aseptic technique. Blood mb9 collected. 09:42 Tequila Bynum, RN is Primary Nurse. mb9 09:44 COVID-19/FLU A+B Sent. mb9 09:44 BNP Sent. mb9 09:44 CBC with Diff Sent. mb9 09:44 CMP Sent. mb9 09:45 Lactate w/ 2H reflex if indic. Sent. mb9 09:45 Protime (+inr) Sent. mb9 09:45 Ptt, Activated Sent. mb9 09:50 Second set of blood cultures drawn by me. jl7 10:56 Chest Single View XRAY In Process Unspecified. EDMS 13:01 CT Chest For PE Angio In Process Unspecified. EDMS 13:32 Obey Mclaughlin MD is Hospitalizing Provider. kb 14:40 Lopez cath inserted, using sterile technique, 16 Fr., by tn, balloon inflated, to mb9 gravity drainage, clamped. returned yenni urine. Patient tolerated well. 14:57 Troponin High Sensitivity Sent. mb9 14:57 Magnesium Sent. mb9 05/24 15:37 No provider procedures requiring assistance completed. mb9 15:51 Patient admitted, IV remains in place. mb9 Administered Medications: 05/23 09:20 Drug: Magnesium Sulfate 1 grams Route: IVPB; Infused Over: 30 mins; Site: left mb9 antecubital; 10:20 Follow up: Response: No adverse reaction; IV Status: Completed infusion mb9 10:05 Drug: Albuterol 2.5 mg Route: Inhalation; mb9 10:37 Follow up: Response: No adverse reaction mb9 10:05 Drug: AtroVENT (ipratropium) Aerosol 0.5 mg Route: Inhalation; mb9 10:37 Follow up: Response: No adverse reaction mb9 11:05 Drug: Rocephin (cefTRIAXone) 1 grams Route: IV; Rate: calculated rate; Site: right mb9 antecubital; 12:16 Follow up: Response: No adverse reaction; IV Status: Completed infusion mb9 11:20 Drug: Zithromax (azithromycin) 500 mg Route: IVPB; Infused Over: 1 hrs; Site: left mb9 forearm; 12:31 Follow up: IV Status: Completed infusion mb9 12:31 Follow up: Response: No adverse reaction mb9 11:39 Drug: NS 0.9% with KCl 40 mEq/L 1000 ml Route: IV; Rate: 125 ml/hr; Site: right mb9 antecubital; 14:08 Drug: Potassium Chloride 40 mEq Route: PO; mb9 15:00 Follow up: Response: No adverse reaction mb9 14:08 Drug: Potassium Chloride 20 mEq Route: IV; Rate: calculated rate; Site: right mb9 antecubital; 16:00 Follow up: Response: No adverse reaction; IV Status: Infusion continued mb9 14:08 Drug: NS 0.9% 1000 ml Route: IV; Rate: 125 ml/hr; Site: right antecubital; mb9 16:30 Drug: Potassium Chloride 20 mEq Route: IV; Rate: calculated rate; Site: left forearm; mb9 Medication: 10:37 VIS not applicable for this client. mb9 Outcome: 13:33 Decision to Hospitalize by Provider. kb 16:00 Admitted to ER Hold. Please see [facility] for further documentation. aa5 05/24 15:38 Admitted to ICU accompanied by nurse, accompanied by tech, with oxygen, on monitor, mb9 with chart, Report called to VIVIAN Larson Condition: stable 15:51 Patient left the ED. mb9 Signatures: Dispatcher [employer] EDVirginia Ko, YINA SUAREZ-Maria De Jesus Kaur, RN RN aa5 Mercedes Fortune RN RN Elayne Dill RN RN [email or web address] Milagro Trevino Mary Beth, RN RN mb9 Corrections: (The following items were deleted from the chart) 05/23 10:25 09:27 Pulse Ox 70% RA; ss mb9 10:41 10:38 Respiratory: Airway is patent Respiratory effort is even, labored, Respiratory mb9 pattern is tachypnea mb9 12:16 12:15 IV Status: Completed infusion mb9 mb9
--- NOTE | 2022-05-23 13:51 | P.HP ---
Certification for Inpatient Patient admitted to: Inpatient With expected LOS: >2 Midnights Patient will require the following post-hospital care: None Practitioner: I am a practitioner with admitting privileges, knowledge of patient current condition, hospital course, and medical plan of care. Services: Services provided to patient in accordance with Admission requirements found in Title 42 Section 412.3 of the Code of Federal Regulations Patient History Date of Service: 05/23/22 Primary Care Provider: Dr. Butt Reason for admission: Hypoxia History of Present Illness: Ms. Iqra Morales is a pleasant 51 year old female who has a past medical history of hypertension, hypothyroidism, hyperlipidemia, and depression who pre sents to the [facility] Emergency Department for shortness of breath. She reports that, over the last 4-5 days, she has been experiencing progressively worsening shortness of breath. She states that this has been associated with congestion, cough, and midsternal chest pain. She states that the chest pain is worse with deep inspiration. She describes the pain as dull/aching and grades it a 6/10 in severity. She denies any obvious inciting or alleviating factors. She presented to her primary care provider earlier this week and states that she was given a steroid injection; however, her symptoms have continued to worsen. On review of systems, she denies any fevers, chills, headaches, dizziness, syncope, palpitations, wheezing, abdominal pain, nausea/vomiting, diarrhea, constipation, hematochezia, melena, dysuria, hematuria, myalgia, or any other symptoms. She presented to the Emergency Department for further evaluation. Upon presentation, her vital signs were notable for a respiratory rate up to 32 breaths/min and an SpO2 of 70% on room air. Her laboratory studies were notable for a WBC count of 16,400, potassium of 2.2, and an initial lactate of 3.3. Her ABG revealed a pH of 7.54, a PCO2 of 35.7, and a PO2 of 62.9. Blood cultures x 2 were obtained. EKG revealed prolonged QTc interval of 539 msec, but no STEMI criteria. Chest x-ray revealed, "bilateral pulmonary opacities probably pneumonia. They should be followed until it has cleared to help exclude a post obstructive process/underlying mass." CT chest angiogram revealed, "negative for a pulmonary embolism. Moderate bilateral lung opacities probably pneumonia." In the Emergency Department, she was given ceftriaxone, azithromycin, potassium chloride, and started on Normal Saline. She was admitted to the General Internal Medicine service for further evaluation. Allergies No Known Allergies Allergy (Verified 01/18/19 11:31) Home medications list reviewed: Yes Home Medications: ALPRAZolam [Xanax] 0.5 mg PO TID PRN 09/18/17 Levothyroxine Sodium [Levoxyl] 100 mcg PO DAILY 09/18/17 PARoxetine HCL [Paxil] 30 mg PO DAILY 09/18/17 Simvastatin [Zocor] 40 mg PO DAILY 09/18/17 hydroCHLOROthiazide [Hydrodiuril] 25 mg PO DAILY 09/18/17 Acebutolol HCl 200 mg PO BID 05/23/22 Omeprazole [Prilosec] 40 mg PO DAILY PRN 05/23/22 - Past Medical/Surgical History Diabetic: No -: Hypertension -: Hypothyroidism -: Hyperlipidemia -: Depression Past Surgical History: Patient denies surgical history - Family History Family History: Reviewed- Non-Contributory - Social History Smoking Status: Current every day smoker Counseled patient to stop smoking for: less than 10 minutes Smoking therapy provided: Yes Alcohol use: No CD- Drugs: No Review of Systems General: Unremarkable Eyes: Unremarkable ENT: Nose Congestion Respiratory: Cough, Dry, Shortness of Breath Cardiovascular: Chest Pain (pleuritic) Gastrointestinal: Unremarkable Genitourinary: Unremarkable Musculoskeletal: Unremarkable Integumentary: Unremarkable Neurological: Unremarkable Lymphatics: Unremarkable Physical Examination - Vital Signs Temperature: 98.9 F Blood Pressure: 122/86 Pulse: 79 Respirations: 32 Pulse Ox (%): 91 (BiPAP) - Physical Exam General: Alert, Oriented x3, Mild distress HEENT: Atraumatic, PERRLA, Mucous membr. moist/pink, EOMI, Sclerae nonicteric Neck: Supple, JVD not distended Respiratory: Diminished, Crackles/rales, Rhonchi/gurgles Cardiovascular: Regular rate/rhythm, Normal S1 S2, No gallops, No rubs, No murmurs, Edema (trace-1+) Gastrointestinal: Normal bowel sounds, Soft and benign, Non-distended, No tenderness, No rebound, No guarding Musculoskeletal: No clubbing Integumentary: No rashes Neurological: Normal speech, Cranial nerves 3-12 intact, Normal affect - Studies Laboratory Data (last 24 hrs) 05/23/22 09:30: PT 15.7 H, INR 1.43, APTT 49.2 H 05/23/22 09:30: Sodium 130 L, Potassium 2.2 L*, BUN 10, Creatinine 0.73, Glucose 139 H, Total Bilirubin 1.7 H, AST 47 H, ALT 29, Alkaline Phosphatase 168 H 05/23/22 09:30: WBC 16.40 H, Hgb 11.1 L, Hct 34.6 L, Plt Count 152 Assessment and Plan - Plan # Acute Hypoxemic Respiratory Failure - likely secondary to Community-Acquired Pneumonia # Prolonged QTc Interval Per ED provider, her SpO2 was 52 % on room air in the field. Upon presentation here, her SpO2 was 70 % on room air. Currently, she is on BiPAP (13/03, FiO2 100 %), with SpO2 readings in the low 90s. - Evaluation thus far: - Procalcitonin = pending - Troponin = pending - EKG = no STEMI criteria, QTc interval = 539 msec - ABG = pH 7.54, PCO2 35.7, PO2 62.9 - Chest x-ray = "bilateral pulmonary opacities probably pneumonia. They should be followed until it has cleared to help exclude a post obstructive process/underlying mass." - CT chest angiogram = "negative for a pulmonary embolism. Moderate bilateral lung opacities probably pneumonia." - Management plan: - Consulted Pulmonary Medicine - recommendations appreciated - Consulted Respiratory Therapy - Supplemental oxygen to maintain SpO2 > 92% - Started ceftriaxone + azithromycin - PRN benzonatate, guaifenesin - Encouraged incentive spirometry # Severe Sepsis likely secondary to Community-Acquired Pneumonia She meets sepsis criteria based on RR > 20 breaths/min and WBC > 12,000, and the suspected source is pneumonia. Severe sepsis is suspected due to concern for tissue hypoperfusion/organ dysfunction based on acute respiratory failure requiring CPAP/BiPAP and lactic acid > 2 mmol/L. - Sepsis order set was initiated - Initial Lactate was 3.3, trend - Blood cultures drawn before antibiotics were given - Broad spectrum antibiotics started: Ceftriaxone + Azithromycin - In regards to fluids: - 30 mL/kg of IV fluids was not administered given SBP > 90, MAP > 65, lactic acid < 4 # Severe Hypokalemia - Check Mg level - Replace electrolytes as needed # Tobacco Use Disorder - Tobacco cessation counseling provided - Nicotine patch ordered # Hypertension - Hold home acebutolol, hydrochlorothiazide due to concern for severe sepsis # Hypothyroidism - Continue home levothyroxine # Hyperlipidemia - Continue home simvastatin # Depression with Anxiety - Continue home paroxetine, PRN alprazolam # Gastroesophageal Reflux Disease - Continue home PRN omeprazole # Morbid Obesity - BMI 42.1 kg/m2 - Lifestyle modifications - Follow-up with PCP Obey Mclaughlin M.D. Discharge Plan: Home Plan to discharge in: Greater than 2 days - Advance Directives Does patient have a Living Will: No Does patient have a Durable POA for Healthcare: No - Code Status/Comfort Care Code Status Assessed: Yes Code Status: Full Code
[2022-05-23] MEDS ORDERED: KCL 20 MEQ/100 mL IVPB 200 ML IV ONE ×2 (13:54→19:44)
[2022-05-23] MEDS ORDERED: POTASSIUM CL SA 10 MEQ TAB PO ONE (13:54)
[2022-05-23] MEDS ORDERED: guaiFENesin 100 MG/5 ML UCUP PO PRN (13:56)
[2022-05-23] MEDS ORDERED: BENZONATATE 100 MG CAP PO PRN (13:56)
[2022-05-23] MEDS: ENOXAPARIN 40 MG/0.4 ML SQ SCH (14:00)
[2022-05-23] MEDS: AZITHROMYCIN IV 500 MG in NA CHLORIDE 0.9% 250 ML IVPB SCH (14:00)
[2022-05-23] MEDS: CEFTRIAXONE 1,000 MG in NA CHLORIDE 0.9% 50 ML IVPB SCH (14:00)
[2022-05-23] MEDS ORDERED: ENOXAPARIN 40 MG/0.4 ML SQ ONE (15:18)
[2022-05-23] MEDS ORDERED: HOME MED 1 EA UNK (Omeprazole [Prilosec] 40 MG Capsule.Dr) PO PRN (15:31)
[2022-05-23] MEDS ORDERED: PANTOPRAZOLE 40MG TABLET PO PRN (15:48)
[2022-05-23] MEDS: NICOTINE 14 MG/PAT TD SCH (16:00)
[2022-05-23 16:41] LABS: Potassium 2.8 mmol/L (3.5-5.1)
[2022-05-23 17:08] LABS: Arterial Blood Carboxyhemoglob 1.4 % (0-1.5); Blood Gas Oxyhemoglobin 88.8 % (94-97); Blood O2 Saturation 91.1 % (92-98.5)
[2022-05-23] MEDS ORDERED: guaiFENesin 100 MG/5 ML UCUP ONE (19:36)
[2022-05-23] MEDS ORDERED: ALPRAZOLAM 0.5 MG TABLET ONE (19:36)
[2022-05-23] MEDS ORDERED: ATORVASTATIN 20 MG TAB ONE (19:36)
[2022-05-23] MEDS ORDERED: NA CHLORIDE 0.9% 1,000 ML ONE (19:44)
[2022-05-23] MEDS: ALPRAZOLAM 0.5 MG TABLET PO PRN (20:18)
[2022-05-23] MEDS: ATORVASTATIN 20 MG TAB PO SCH (21:00)
[2022-05-24 00:25] LABS: Arterial Blood Carboxyhemoglob 1.6 % (0-1.5); Blood Gas Oxyhemoglobin 84.8 % (94-97)
[2022-05-24 01:01] LABS: Potassium 3.4 mmol/L (3.5-5.1)
[2022-05-24] MEDS: POTASSIUM CL IV SCH ×2 (04:00→12:00)
[2022-05-24] MEDS: NA CHLORIDE 0.9% IV SCH ×2 (04:00→12:00)
[2022-05-24] MEDS ORDERED: NA CHLORIDE 0.9% 1,000 ML ONE ×2 (04:18→11:45)
[2022-05-24] MEDS ORDERED: KCL 20 MEQ/100 mL IVPB 100 ML IV ONE ×2 (04:18→04:31)
[2022-05-24 05:05] LABS: Hematocrit 32.6 % (36.0-45.0); MCV 83.5 fL (80-100); MPV 9.9 fL (7.6-11.3)
[2022-05-24 05:07] LABS: Protime INR 1.53
[2022-05-24 05:23] LABS: Albumin 2.6 g/dL (3.4-5.0); Bilirubin Total 1.7 mg/dL (0.2-1.0); Magnesium 2.2 mg/dL (1.8-2.4); Phosphorus 1.2 mg/dL (2.5-4.9); Potassium 3.3 mmol/L (3.5-5.1); Protein, Total 7.1 g/dL (6.4-8.2)
[2022-05-24] MEDS: LEVOTHYROXINE SOD 0.1 MG TAB PO SCH (06:30)
[2022-05-24] MEDS: ENOXAPARIN 40 MG/0.4 ML SQ SCH (09:00)
[2022-05-24] MEDS: NICOTINE 14 MG/PAT TD SCH (09:00)
[2022-05-24] MEDS ORDERED: SIMVASTATIN 80 MG PO SCH (09:00)
[2022-05-24] MEDS: AZITHROMYCIN IV 500 MG in NA CHLORIDE 0.9% 250 ML IVPB SCH (09:00)
[2022-05-24] MEDS: PARoxetine HCL 10 MG TAB PO SCH (09:00)
[2022-05-24] MEDS ORDERED: NA CHLORIDE 0.9% 250 ML ONE (09:13)
[2022-05-24] MEDS ORDERED: AZITHROMYCIN 500 MG INJ IVPB ONE (09:13)
[2022-05-24] MEDS ORDERED: ENOXAPARIN 40 MG/0.4 ML SQ ONE (09:13)
[2022-05-24] MEDS ORDERED: CEFTRIAXONE 1000 MG/VIAL ONE (09:13)
[2022-05-24] MEDS ORDERED: ALPRAZOLAM 0.5 MG TABLET ONE (09:13)
[2022-05-24] MEDS ORDERED: NA CHLORIDE 0.9% 100 ML IV ONE (09:13)
[2022-05-24] MEDS: ALPRAZOLAM 0.5 MG TABLET PO PRN (09:22)
[2022-05-24] MEDS ORDERED: RSI MEDICATION KIT IV ONE (09:51)
[2022-05-24] MEDS ORDERED: MIDAZOLAM HCL 2 MG/2 ML INJ ONE ×2 (09:57→11:52)
[2022-05-24] MEDS ORDERED: METHYLPREDNISOLONE 125 MG INJ IV SCH (09:57)
[2022-05-24] MEDS ORDERED: LORazepam 2 MG/ML VIAL IV PRN (10:00)
[2022-05-24] MEDS ORDERED: HALOPERIDOL LACT 5 MG/ML INJ IV PRN (10:00)
[2022-05-24] MEDS ORDERED: Levofloxacin 750mg IV 750 MG/150 ML BAG IV SCH (10:00)
[2022-05-24] MEDS ORDERED: NA CHLORIDE 0.9% 250 ML IV PRN (10:00)
[2022-05-24] MEDS ORDERED: MIDAZOLAM HCL 2 MG/2 ML INJ IV PRN (10:00)
--- NOTE | 2022-05-24 10:00 | P.CNS ---
Date of Consult: 05/24/22 Reason for Consult: Respiratory failure Primary Care Provider: Dr. Butt Chief Complaint: Hypoxia History of Present Illness: Patient is 51 years of age with multiple medical problems admitted to the emergency room with shortness of breath for 5 days associated with cough congestion some chest pain he was given a steroid injection continue to get worse currently on a BiPAP with 100% FiO2 still continues to remain very hypoxic appears tachypneic Allergies No Known Allergies Allergy (Verified 01/18/19 11:31) Home Medications: ALPRAZolam [Xanax] 5 mg PO DAILY 09/18/17 Levothyroxine Sodium [Levoxyl] 75 mg PO DAILY 09/18/17 PARoxetine HCL [Paxil] 20 mg PO DAILY 09/18/17 Simvastatin [Zocor] 40 mg PO DAILY 09/18/17 hydroCHLOROthiazide [Hydrodiuril] 25 mg PO DAILY 09/18/17 Acebutolol HCl 200 mg PO BID 05/23/22 Amlodipine Besylate [Norvasc] 10 mg PO DAILY 05/23/22 Omeprazole [Prilosec] 40 mg PO DAILY PRN 05/23/22 Zolpidem Tartrate [Ambien] 10 mg PO DAILY 05/23/22 - Past Medical/Surgical History Diabetic: No -: Hypertension -: Hypothyroidism -: Hyperlipidemia -: Depression - Social History Smoking Status: Current every day smoker Alcohol use: No CD- Drugs: No Review of Systems is unable to be obtained Physical Examination Temp Pulse Resp BP Pulse Ox 98.6 F 77 30 H 129/66 88 L 05/24/22 09:00 05/24/22 09:00 05/24/22 09:00 05/24/22 09:00 05/24/22 09:00 General: Unresponsive Respiratory: Diminished, Crackles/rales Cardiovascular: No edema, Regular rate/rhythm, Normal S1 S2 Gastrointestinal: Normal bowel sounds, Soft and benign Laboratory Data (last 24 hrs) 05/23/22 09:30: PT 15.7 H, INR 1.43, APTT 49.2 H 05/23/22 09:30: Sodium 130 L, Potassium 2.2 L*, BUN 10, Creatinine 0.73, Glucose 139 H, Total Bilirubin 1.7 H, AST 47 H, ALT 29, Alkaline Phosphatase 168 H 05/23/22 09:30: WBC 16.40 H, Hgb 11.1 L, Hct 34.6 L, Plt Count 152 - Problems (1) Respiratory failure with hypoxia Current Visit: Yes Status: Acute Plan: Patient is 51 years of age admitted with acute respiratory failure secondary to diffuse bilateral pneumonia currently very hypoxic will need to be intubated COVID and influenza screen is negative patient admitted with hyponatremia hypokalemia PT/INR elevated mildly elevated white count start patient on steroids IV levofloxacin gentle diuresis chest x-ray is reviewed discussed with relatives decub position confirmed and adjusted critical care time 1 hour Qualifiers: Chronicity: acute Qualified Code(s): J96.01 - Acute respiratory failure with hypoxia (2) Alcoholism Current Visit: Yes Status: Acute Plan: Patient is an alcoholic add on dexmedetomidine drip add lorazepam may need Nimbex Critical Care: Yes Time Spent Managing Pts care (In Minutes): 60
[2022-05-24] MEDS: METHYLPREDNISOLONE 125 MG INJ IV SCH ×2 (10:03→17:24)
[2022-05-24] MEDS ORDERED: propofoL 1,000 MG/100 ML VIAL IV ONE (10:18)
[2022-05-24] MEDS ORDERED: METHYLPREDNISOLONE 40 MG INJ ONE (10:47)
--- NOTE | 2022-05-24 10:56 | RAD REPORT ---
EXAM DESCRIPTION: [place] Single View05/24/2022 10:51 am CLINICAL HISTORY: Device placement endotracheal tube placement IMPRESSION: An endotracheal tube has been inserted with its tip at the top of the level of the aorti c arch Nasogastric tube within the distal stomach
[2022-05-24] MEDS ORDERED: FUROSEMIDE 20 MG/ 2ML VIAL ONE (11:11)
[2022-05-24] MEDS: propofoL 1,000 MG/100 ML VIAL IV SCH (11:15)
[2022-05-24] MEDS ORDERED: LORazepam 2 MG/ML VIAL ONE ×2 (11:39→12:38)
[2022-05-24] MEDS ORDERED: THIAMINE 200 MG/2 ML INJ ONE (11:45)
[2022-05-24] MEDS ORDERED: MULTIVITAMINS 10 ML VIAL (INJ) IV ONE (11:46)
[2022-05-24] MEDS ORDERED: FOLIC ACID 5 MG/ML VIAL ONE (11:47)
[2022-05-24] MEDS ORDERED: THIAMINE 200 MG/2 ML INJ IVP SCH (11:48)
[2022-05-24] MEDS ORDERED: CISATRACURIUM INJECTION 2 MG/ML (10 ML Vial) IV ONE (12:00)
[2022-05-24] MEDS: CISATRACURIUM 2 MG/ML IV PRN ×2 (12:03→13:19)
--- NOTE | 2022-05-24 12:20 | P.PN ---
Subjective Date of Service: 05/24/22 Primary Care Provider: Dr. Butt Chief Complaint: Hypoxia Overnight, she has been progressively worsening. She has been becoming less responsive and more hypoxic despite high levels of BiPAP support. Her BiPAP settings were increased to 24/11, FiO2 100 %, and she was maintaining SpO2 readings in the mid-upper 80s. Michel Moreland was called at 09:51 AM for respiratory distress. Dr. Francois (Emergency Medicine) responded and Dr. Summers (Anesthesiology) was called in. Dr. Francois performed an endotracheal intubation while Dr. Summers provided the sedation/paralytic medications. Despite intubation, her SpO2 readings were in the 70s-low 80s. Called Dr. Krystal puente (Pulmonary Medicine), who arrived at bedside shortly after. He has broadened antibiotics, started steroids, and adjusted her ventilator settings. Her SpO2 is now in the mid-upper 80s, and we are actively monitoring and adjusting her ventilator settings under ICU status. Review of Systems is unable to be obtained Physical Examination - Vital Signs Temperature: 98.6 F Blood Pressure: 129/66 Pulse: 77 Respirations: 30 Pulse Ox (%): 88 - Physical Exam General: Other (intubated, sedated) HEENT: Normocephalic, Sclerae nonicteric Neck: JVD not distended Respiratory: Diminished, Crackles/rales Cardiovascular: Regular rate/rhythm, Normal S1 S2, No gallops, No rubs, No murmurs, Edema (trace) Gastrointestinal: Normal bowel sounds, Soft and benign, No tenderness, No rebound, No guarding, Distended Musculoskeletal: No clubbing Integumentary: No rashes Neurological: Other (sedated) Assessment And Plan - Plan # Acute Hypoxemic Respiratory Failure - likely secondary to Community-Acquired Pneumonia # Prolonged QTc Interval Per ED provider, her SpO2 was 52 % on room air in the field. Upon presentation here, her SpO2 was 70 % on room air. Currently, she is on mechanical ventilation, with SpO2 readings in the mid-upper 80s. - Evaluation thus far: - Procalcitonin = 0.18 - Troponin = 6.2 - EKG = no STEMI criteria, QTc interval = 539 msec - ABG = pH 7.54, PCO2 35.7, PO2 62.9 - Chest x-ray = "bilateral pulmonary opacities probably pneumonia. They should be followed until it has cleared to help exclude a post obstructive process/underlying mass." - CT chest angiogram = "negative for a pulmonary embolism. Moderate bilateral lung opacities probably pneumonia." - Management plan: - Consulted Pulmonary Medicine and spoke with Dr. Shay - recommendations appreciated - Consulted Respiratory Therapy - Supplemental oxygen to maintain SpO2 > 92% - Started ceftriaxone + levofloxacin - PRN benzonatate, guaifenesin - Encouraged incentive spirometry # Severe Sepsis likely secondary to Community-Acquired Pneumonia She meets sepsis criteria based on RR > 20 breaths/min and WBC > 12,000, and the suspected source is pneumonia. Severe sepsis is suspected due to concern for tissue hypoperfusion/organ dysfunction based on acute respiratory failure requiring CPAP/BiPAP and lactic acid > 2 mmol/L. - Sepsis order set was initiated - Initial Lactate was 3.3 -> 3.6 -> 2.9 -> 3.2 -> 2.1, trend - Blood cultures drawn before antibiotics were given - Broad spectrum antibiotics started: Ceftriaxone + Levofloxacin - In regards to fluids: - 30 mL/kg of IV fluids was not administered given SBP > 90, MAP > 65, lactic acid < 4 # Alcohol Use Disorder Per her daughter, she drinks half a pint of joie mixer (10 % alcohol), daily - Started banana bag - Dr. Shay adjusted sedation to dexmedetomidine # Severe Hypokalemia - Mg = 2.1 - Replace electrolytes as needed # Tobacco Use Disorder - Tobacco cessation counseling provided - Nicotine patch ordered # Hypertension - Hold home acebutolol, hydrochlorothiazide due to concern for severe sepsis # Hypothyroidism - Continue home levothyroxine # Hyperlipidemia - Continue home simvastatin # Depression with Anxiety - Continue home paroxetine, PRN alprazolam # Gastroesophageal Reflux Disease - Continue home PRN omeprazole # Morbid Obesity - BMI 42.1 kg/m2 - Lifestyle modifications - Follow-up with PCP I have updated her daughter, Ms. Maria Teresa Martinez, of her hospital course and clinical deterioration. I have informed her that Dr. Shay and I are concerned for ARDS. Her prognosis is guarded. All questions answered to the best of my ability. Obey Mclaughlin M.D.
[2022-05-24] MEDS ORDERED: FENTANYL CITR 100 MCG/2 ML ONE (12:42)
[2022-05-24] MEDS: FENTANYL CITR 100 MCG/2 ML IV PRN (12:43)
[2022-05-24] MEDS ORDERED: HALOPERIDOL LACT 5 MG/ML INJ ONE (12:51)
[2022-05-24] MEDS: CISATRACURIUM BESYLATE 40 MG in NA CHLORIDE 0.9% 80 ML IV PRN ×4 (13:38→23:26)
[2022-05-24] MEDS: DEXMEDETOMIDINE HCL 200 MCG in NA CHLORIDE 0.9% 98 ML IV SCH ×2 (13:42→21:10)
[2022-05-24 15:19] LABS: Arterial Blood Carboxyhemoglob 1.4 % (0-1.5); Blood Gas Oxyhemoglobin 91.6 % (94-97); Blood O2 Saturation 93.8 % (92-98.5)
[2022-05-24] MEDS ORDERED: ETOMIDATE 20 MG/10 ML VIAL IV ONE (15:47)
[2022-05-24] MEDS ORDERED: ROCURONIUM 50 MG/5 ML VIAL IV ONE (15:47)
[2022-05-24] MEDS ORDERED: SUCCINYLCHOLINE 20 MG/ML (10 ML) IV ONE (15:47)
[2022-05-24] MEDS: FUROSEMIDE 20 MG/ 2ML VIAL IV SCH (17:23)
[2022-05-24] MEDS: LORazepam 2 MG/ML VIAL IV PRN ×2 (17:25→23:37)
--- NOTE | 2022-05-24 20:11 | RAD REPORT ---
EXAM DESCRIPTION: RAD - Abdomen 1 View (KUB) - 05/24/2022 8:00 pm CLINICAL HISTORY: Abdomen pain FINDINGS: The bowel gas pattern is unremarkable. No significant abnormal calcification is displayed
[2022-05-24] MEDS: ATORVASTATIN 20 MG TAB PO SCH (21:00)
[2022-05-24] MEDS: FAMOTIDINE 20 MG/2 ML VIAL IV SCH (22:26)
[2022-05-24] MEDS: Levofloxacin 750mg IV 750 MG/150 ML BAG IV SCH (22:45)
[2022-05-25] MEDS ORDERED: HYDROCODONE/APAP 5/325 MG TAB ONE (00:08)
[2022-05-25] MEDS ORDERED: METHYLPREDNISOLONE 40 MG INJ ONE (00:09)
[2022-05-25] MEDS: CEFTRIAXONE 1,000 MG in NA CHLORIDE 0.9% 50 ML IVPB SCH ×2 (01:01→09:40)
[2022-05-25] MEDS: METHYLPREDNISOLONE 125 MG INJ IV SCH ×3 (01:06→16:29)
[2022-05-25] MEDS: FUROSEMIDE 20 MG/ 2ML VIAL IV SCH (01:06)
[2022-05-25] MEDS: CISATRACURIUM BESYLATE 40 MG in NA CHLORIDE 0.9% 80 ML IV PRN ×2 (02:33→05:56)
[2022-05-25 05:12] LABS: Lymphocytes % 9.5 % (15.3-44.8); MCV 84.6 fL (80-100); MPV 9.5 fL (7.6-11.3)
[2022-05-25] MEDS ORDERED: NA CHLORIDE 0.9% 100 ML IV ONE (05:12)
[2022-05-25] MEDS: DEXMEDETOMIDINE HCL 200 MCG in NA CHLORIDE 0.9% 98 ML IV SCH (05:19)
[2022-05-25 05:30] LABS: Albumin 2.3 g/dL (3.4-5.0); Bilirubin Total 1.3 mg/dL (0.2-1.0); Potassium 3.7 mmol/L (3.5-5.1); Protein, Total 6.9 g/dL (6.4-8.2)
[2022-05-25] MEDS: LEVOTHYROXINE SOD 0.1 MG TAB PO SCH (05:57)
--- NOTE | 2022-05-25 07:21 | RAD REPORT ---
EXAM DESCRIPTION: RAD - Chest Single View - 05/25/2022 5:57 am CLINICAL HISTORY: Respiratory failure COMPARISON: Abdomen 1 View (KUB) dated 05/24/2022; Chest Single View dated 05/24/2022; Chest Single View dated 05/23/2022; Chest Pa And Lat (2 Views) dated 06/24/2018; Chest For Pe Angio dated 05/23/20 22 FINDINGS: Lines: Endotracheal tube at the aortic arch above the erick. Enteric tube overlying the s tomach. Defibrillator pad. Lungs: Widespread bilateral airspace disease. Pleural: No significant pleural effusions or pneumothorax. Cardiac: The heart size is within normal limits. Mediastinum: Within normal limits. Bones: No acute fractures. Other: None IMPRESSION: Similar widespread bilateral airspace disease likely representing pneumonia. Support keely aratus in satisfactory position.
--- NOTE | 2022-05-25 09:34 | P.PN ---
Subjective Date of Service: 05/25/22 Primary Care Provider: Dr. Butt Chief Complaint: Respiratory failure Patient's condition is stable is on paralytics dexmedetomidine percent FiO2 PEEP of 15 Review of Systems is unable to be obtained Physical Examination - Vital Signs Temperature: 96.8 F Blood Pressure: 133/79 Pulse: 76 Respirations: 18 Pulse Ox (%): 94 - Physical Exam General: Comatose Respiratory: Clear to auscultation bilaterally, Diminished Cardiovascular: No edema, Regular rate/rhythm Assessment And Plan - Current Problems (Diagnosis) (1) Respiratory failure with hypoxia Current Visit: Yes Status: Acute Plan: Patient admitted with respiratory failure plan is to wean off for paralytics continue with dexmedetomidine use Ativan as needed labs reviewed tracheal tube satisfactory with some improvement in her x-ray patient is an alcoholic increased dose of Lasix maintain a negative fluid balance continue with steroid blood cultures are so far negative Qualifiers: Chronicity: acute Qualified Code(s): J96.01 - Acute respiratory failure with hypoxia (2) Alcoholism Current Visit: Yes Status: Acute Plan: Condition stable so far add additional thiamine 200 mg twice a day
[2022-05-25] MEDS: LORazepam 2 MG/ML VIAL IV PRN ×4 (09:37→21:41)
[2022-05-25] MEDS: ENOXAPARIN 40 MG/0.4 ML SQ SCH (09:40)
[2022-05-25] MEDS: PARoxetine HCL 10 MG TAB PO SCH (09:40)
[2022-05-25] MEDS: FOLIC ACID 1 MG, MULTIVITAMINS INJ 10 ML, THIAMINE HCL 100 MG in NA CHLORIDE 0.9% 1,000 ML IV SCH (09:41)
[2022-05-25] MEDS: FUROSEMIDE 40 MG/4 ML VIAL IV SCH ×2 (09:41→20:14)
[2022-05-25] MEDS: FAMOTIDINE 20 MG/2 ML VIAL IV SCH ×2 (09:41→20:15)
[2022-05-25] MEDS: FENTANYL CITR 100 MCG/2 ML IV PRN (10:02)
[2022-05-25] MEDS: DEXMEDETOMIDINE HCL 1,000 MCG in NA CHLORIDE 0.9% 490 ML IV SCH ×2 (10:16→22:16)
[2022-05-25] MEDS: THIAMINE 200 MG/2 ML INJ IVP SCH ×2 (10:46→20:15)
[2022-05-25] MEDS: NICOTINE 14 MG/PAT TD SCH (10:46)
--- NOTE | 2022-05-25 11:46 | P.PN ---
Subjective Date of Service: 05/25/22 Primary Care Provider: Dr. Butt Chief Complaint: Respiratory failure No acute events overnight per RN. She remains intubated and sedated. PEEP is at 15.0. Reviewed with Dr. Shay, he is planning to wean cisatracurium followed by PEEP as tolerated. Review of Systems is unable to be obtained Physical Examination - Vital Signs Temperature: 96.8 F Blood Pressure: 130/83 Pulse: 71 Respirations: 28 Pulse Ox (%): 91 Assessment And Plan - Plan - Physical Exam General: Other (intubated, sedated) HEENT: Normocephalic, Sclerae nonicteric Neck: JVD not distended Respiratory: Diminished, Crackles/rales Cardiovascular: Regular rate/rhythm, Normal S1 S2, No gallops, No rubs, No murmurs, Edema (trace) Gastrointestinal: Normal bowel sounds, Soft and benign, No tenderness, No rebound, No guarding, Distended Musculoskeletal: No clubbing Integumentary: No rashes Neurological: Other (sedated) # Acute Hypoxemic Respiratory Failure - likely secondary to Community-Acquired Pneumonia and suspect Acute Respiratory Distress Syndrome # Prolonged QTc Interval Per ED provider, her SpO2 was 52 % on room air in the field. Upon presentation here, her SpO2 was 70 % on room air. Currently, she is on mechanical ventilation, with SpO2 readings in the lower 90s. - Evaluation thus far: - Procalcitonin = 0.18 - Troponin = 6.2 - EKG = no STEMI criteria, QTc interval = 539 msec - ABG = pH 7.54, PCO2 35.7, PO2 62.9 - Chest x-ray = "bilateral pulmonary opacities probably pneumonia. They should be followed until it has cleared to help exclude a post obstructive process/underlying mass." - CT chest angiogram = "negative for a pulmonary embolism. Moderate bilateral lung opacities probably pneumonia." - Management plan: - Consulted Pulmonary Medicine and spoke with Dr. Shay - recommendations appreciated - Consulted Respiratory Therapy - Supplemental oxygen to maintain SpO2 > 92% - Started ceftriaxone + levofloxacin - PRN benzonatate, guaifenesin - Encouraged incentive spirometry # Severe Sepsis likely secondary to Community-Acquired Pneumonia She meets sepsis criteria based on RR > 20 breaths/min and WBC > 12,000, and the suspected source is pneumonia. Severe sepsis is suspected due to concern for tissue hypoperfusion/organ dysfunction based on acute respiratory failure requiring intubation and lactic acid > 2 mmol/L. - Sepsis order set was initiated - Initial Lactate was 3.3 -> 3.6 -> 2.9 -> 3.2 -> 2.1, trend - Blood cultures drawn before antibiotics were given - Broad spectrum antibiotics started: Ceftriaxone + Levofloxacin - In regards to fluids: - 30 mL/kg of IV fluids was not administered given SBP > 90, MAP > 65, lactic acid < 4 # Alcohol Use Disorder Per her daughter, she drinks half a pint of joie mixer (10 % alcohol), daily - Started banana bag - Dr. Shay adjusted sedation to dexmedetomidine # Severe Hypokalemia - Mg = 2.1 - Replace electrolytes as needed # Tobacco Use Disorder - Tobacco cessation counseling provided - Nicotine patch ordered # Hypertension - Hold home acebutolol, hydrochlorothiazide due to concern for severe sepsis # Hypothyroidism - Continue home levothyroxine # Hyperlipidemia - Continue home simvastatin # Depression with Anxiety - Continue home paroxetine, PRN alprazolam # Gastroesophageal Reflux Disease - Continue home PRN omeprazole # Morbid Obesity - BMI 42.1 kg/m2 - Lifestyle modifications - Follow-up with PCP Reviewed her case with Dr. Shay. Her prognosis is guarded. Obey Mclaughlin M.D.
[2022-05-25] MEDS: ATORVASTATIN 20 MG TAB PO SCH (20:15)
[2022-05-25] MEDS: Levofloxacin 750mg IV 750 MG/150 ML BAG IV SCH (22:22)
[2022-05-26] MEDS: METHYLPREDNISOLONE 125 MG INJ IV SCH ×3 (00:28→20:03)
[2022-05-26] MEDS: LORazepam 2 MG/ML VIAL IV PRN ×5 (02:54→20:03)
[2022-05-26] MEDS: FENTANYL CITR 100 MCG/2 ML IV PRN ×3 (04:30→16:47)
[2022-05-26 05:12] LABS: Absolute Lymphocytes (CBC) 1.1 K/uL (0.7-4.9); Hematocrit 33.6 % (36.0-45.0); Lymphocytes % 13.8 % (15.3-44.8); MCV 84.3 fL (80-100); MPV 9.5 fL (7.6-11.3); RBC Red Blood Cell Count 3.99 M/uL (3.86-4.86)
[2022-05-26] MEDS: LEVOTHYROXINE SOD 0.1 MG TAB PO SCH (05:29)
[2022-05-26 05:34] LABS: Albumin 2.3 g/dL (3.4-5.0); Bilirubin Total 1.2 mg/dL (0.2-1.0); Potassium 3.3 mmol/L (3.5-5.1); Protein, Total 6.9 g/dL (6.4-8.2)
--- NOTE | 2022-05-26 07:53 | RAD REPORT ---
EXAM DESCRIPTION: RAD - Chest Single View - 05/26/2022 5:43 am CLINICAL HISTORY: Respiratory failure COMPARISON: Chest Single View dated 05/25/2022; Abdomen 1 View (KUB) dated 05/24/2022; Chest Single View dated 05/24/2022; Chest Single View dated 05/23/2022 FINDINGS: Lines: Endotracheal tube at the aortic arch. NG tube below the diaphragm. Lungs: Bilateral interstitial airspace disease is unchanged. Pleural: No significant pleural effusions or pneumothorax. Cardiac: The heart size is within normal limits. Mediastinum: Within normal limits. Bones: No acute fractures. Other: None IMPRESSION: Unchanged aeration of the lungs with widespread opacities that likely represents pneumon ia. Support apparatus in satisfactory position.
[2022-05-26] MEDS ORDERED: VITAL AF 1,000 ML BOT RTH SCH (08:00)
[2022-05-26] MEDS ORDERED: POTASSIUM 25 MEQ EFFERV TAB PO ONE (08:00)
[2022-05-26] MEDS: FAMOTIDINE 20 MG/2 ML VIAL IV SCH ×2 (08:39→20:03)
[2022-05-26] MEDS: ENOXAPARIN 40 MG/0.4 ML SQ SCH (08:39)
[2022-05-26] MEDS: FUROSEMIDE 40 MG/4 ML VIAL IV SCH (08:40)
[2022-05-26] MEDS: THIAMINE 200 MG/2 ML INJ IVP SCH ×2 (08:40→20:03)
[2022-05-26] MEDS: NICOTINE 14 MG/PAT TD SCH (08:40)
[2022-05-26] MEDS: CEFTRIAXONE 1,000 MG in NA CHLORIDE 0.9% 50 ML IVPB SCH (08:40)
[2022-05-26] MEDS: PARoxetine HCL 10 MG TAB PO SCH (08:41)
[2022-05-26] MEDS: FOLIC ACID 1 MG, MULTIVITAMINS INJ 10 ML, THIAMINE HCL 100 MG in NA CHLORIDE 0.9% 1,000 ML IV SCH (09:35)
[2022-05-26] MEDS: DEXMEDETOMIDINE HCL 1,000 MCG in NA CHLORIDE 0.9% 490 ML IV SCH ×2 (10:14→18:20)
[2022-05-26] MEDS ORDERED: ACETAMINOPHEN 325 MG TABLET PO PRN (16:20)
[2022-05-26] MEDS: ACETAMINOPHEN 325 MG TABLET PO PRN (16:48)
[2022-05-26] MEDS: ATORVASTATIN 20 MG TAB PO SCH (20:03)
[2022-05-26] MEDS: Levofloxacin 750mg IV 750 MG/150 ML BAG IV SCH (23:10)
[2022-05-27] MEDS: LORazepam 2 MG/ML VIAL IV PRN ×6 (02:00→23:30)
[2022-05-27 04:51] LABS: Lymphocytes % 12.7 % (15.3-44.8); MCV 84.4 fL (80-100); MPV 9.1 fL (7.6-11.3); RBC Red Blood Cell Count 4.03 M/uL (3.86-4.86)
[2022-05-27 04:58] LABS: Albumin 2.1 g/dL (3.4-5.0); Bilirubin Total 1.3 mg/dL (0.2-1.0); Magnesium 2.7 mg/dL (1.8-2.4); Potassium 3.3 mmol/L (3.5-5.1); Protein, Total 6.5 g/dL (6.4-8.2)
[2022-05-27 05:24] LABS: Arterial Blood Carboxyhemoglob 1.7 % (0-1.5); Blood Gas Oxyhemoglobin 92.1 % (94-97); Blood O2 Saturation 94.8 % (92-98.5)
[2022-05-27] MEDS: FENTANYL CITR 100 MCG/2 ML IV PRN ×3 (05:30→19:45)
[2022-05-27] MEDS: LEVOTHYROXINE SOD 0.1 MG TAB PO SCH (05:41)
[2022-05-27] MEDS ORDERED: POTASSIUM 25 MEQ EFFERV TAB PO ONE (07:00)
[2022-05-27] MEDS: CEFTRIAXONE 1,000 MG in NA CHLORIDE 0.9% 50 ML IVPB SCH (08:33)
[2022-05-27] MEDS: METHYLPREDNISOLONE 125 MG INJ IV SCH ×2 (08:34→21:02)
[2022-05-27] MEDS: PARoxetine HCL 10 MG TAB PO SCH (08:34)
[2022-05-27] MEDS: FUROSEMIDE 40 MG/4 ML VIAL IV SCH (08:34)
[2022-05-27] MEDS: FAMOTIDINE 20 MG/2 ML VIAL IV SCH ×2 (08:35→21:03)
[2022-05-27] MEDS: THIAMINE 200 MG/2 ML INJ IVP SCH ×2 (08:35→21:03)
[2022-05-27] MEDS: NICOTINE 14 MG/PAT TD SCH (08:37)
[2022-05-27] MEDS: ENOXAPARIN 40 MG/0.4 ML SQ SCH (08:37)
[2022-05-27] MEDS ORDERED: VITAL HP 1,000 ML BOT RTH SCH (09:00)
--- NOTE | 2022-05-27 09:26 | RAD REPORT ---
EXAM DESCRIPTION: RAD - Chest Single View - 05/27/2022 6:00 am CLINICAL HISTORY: Respiratory failure Chest pain. COMPARISON: Chest Single View dated 05/26/2022; Chest Single View dated 05/25/2022; Abdomen 1 View ( KUB) dated 05/24/2022; Chest Single View dated 05/24/2022 FINDINGS: Portable technique limits examination quality. Tip of the endotracheal tube is above the erick. Enteric tube descends into the upper abdomen. Bilat eral pulmonary opacities are present, essentially unchanged since prior study. The heart is mildly en larged in size IMPRESSION: Stable chest since yesterday's study.
[2022-05-27] MEDS: FOLIC ACID 1 MG, MULTIVITAMINS INJ 10 ML, THIAMINE HCL 100 MG in NA CHLORIDE 0.9% 1,000 ML IV SCH (10:32)
--- NOTE | 2022-05-27 12:59 | EKG ---
Test Date: 2022-05-23 Test Time: 09:30:31 Tech Ed Teacher: GRACIA MEASUREMENT RESULTS: Intervals: Rate: 81 OR: 150 QRSD: 86 QT: 464 QTc: 539 [place]: P: 67 OR: 150 QRS: 14 T: 84 INTERPRETIVE STATEMENTS: Normal sinus rhythm Low voltage QRS Nonspecific T wave abnormality Prolonged QT Abnormal ECG No previous ECG available for comparison Electronically Signed On 05-27-22 12:53:21 RIG OPERATOR by Baudilio Weeks
[2022-05-27] MEDS: propofoL 1,000 MG/100 ML VIAL IV SCH (13:00)
--- NOTE | 2022-05-27 15:57 | RAD REPORT ---
EXAM DESCRIPTION: RAD - Chest Single View - 05/27/2022 3:25 pm CLINICAL HISTORY: Picc line placement COMPARISON: Chest Single View dated 05/27/2022; Chest Single View dated 05/26/2022; Chest Single Vie w dated 05/25/2022; Abdomen 1 View (KUB) dated 05/24/2022; Chest For Pe Angio dated 05/23/2022 FINDINGS: Lines: Endotracheal tube at the aortic arch. PICC tip terminates overlying the superior ca voatrial junction. Enteric tube below the diaphragm. Lungs: Bilateral interstitial and airspace disease is unchanged from earlier in the day. . Pleural: No significant pleural effusions or pneumothorax. Cardiac: Cardiomegaly. Mediastinum: Within normal limits. Bones: No acute fractures. Other: None IMPRESSION: Interval placement of a PICC with tip overlying the superior cavoatrial junction in sati sfactory position. Other support apparatus in satisfactory position. Similar aeration of the lungs.
[2022-05-27] MEDS: ATORVASTATIN 20 MG TAB PO SCH (21:03)
[2022-05-28] MEDS: Levofloxacin 750mg IV 750 MG/150 ML BAG IV SCH ×2 (00:09→23:26)
[2022-05-28] MEDS: LORazepam 2 MG/ML VIAL IV PRN ×7 (01:44→23:27)
[2022-05-28] MEDS: FENTANYL CITR 100 MCG/2 ML IV PRN ×4 (05:01→15:29)
[2022-05-28] MEDS: LEVOTHYROXINE SOD 0.1 MG TAB PO SCH (05:34)
--- NOTE | 2022-05-28 07:05 | P.PN ---
Date of Service: 05/26/22 Subjective Patient continues to improve according to nursing staff. Patient's PEEP pressures have decreased from 15 to 10. Patient's not requiring as much oxygen. Review of Systems Intubated and sedated Physical Examination - Vital Signs Reviewed - Physical Exam General: Other (intubated, sedated) Respiratory: Diminished, Crackles/rales Cardiovascular: Regular rate/rhythm, Normal S1 S2, No gallops, No rubs, No murmurs, Edema (trace) Gastrointestinal: Normal bowel sounds, Soft and benign, No tenderness, No rebound, No guarding, Distended Neurological: Other (sedated) Assessment And Plan - Assessment # Acute Hypoxemic Respiratory Failure - likely secondary to Community-Acquired Pneumonia and suspect Acute Respiratory Distress Syndrome # Prolonged QTc Interval # Severe Sepsis likely secondary to Community-Acquired Pneumonia # Alcohol Use Disorder # Severe Hypokalemia # Tobacco Use Disorder # Hypertension # Hypothyroidism # Hyperlipidemia # Depression with Anxiety # Gastroesophageal Reflux Disease # Morbid Obesity - BMI 42.1 kg/m2 1. Continue with IV antibiotics; Will wean off the ventilator hopefully over the next 48 to 72 hours. Appreciate pulmonary assistance in patient's care 2. Awaiting cultures 3. Repeat chest x-ray 4. Will proceed with CT scan of the chest if Symptoms not improving 5. Respiratory isolation is not needed 6. Continue with nebs as needed 7. O2 per protocol 8. Continue with gentle hydration 9. Repeat labs including CBC and renal function in a.m. 10. Monitor neurologic status 11.Range of motion exercises 12.GI and DVT prophylaxis
--- NOTE | 2022-05-28 07:07 | P.PN ---
Date of Service: 05/28/22 Subjective Patient weaning him off the ventilator. Patient continues to improve. Patient up and following some commands. Review of Systems Intubated and sedated Physical Examination - Vital Signs Reviewed - Physical Exam General: Other (intubated, sedated) Respiratory: Diminished, Crackles/rales Cardiovascular: Regular rate/rhythm, Normal S1 S2, No gallops, No rubs, No murmurs, Edema (trace) Gastrointestinal: Normal bowel sounds, Soft and benign, No tenderness, No rebound, No guarding, Distended Neurological: Other (sedated) Assessment And Plan - Assessment # Acute Hypoxemic Respiratory Failure - likely secondary to Community-Acquired Pneumonia and suspect Acute Respiratory Distress Syndrome # Prolonged QTc Interval # Severe Sepsis likely secondary to Community-Acquired Pneumonia # Alcohol Use Disorder # Severe Hypokalemia # Tobacco Use Disorder # Hypertension # Hypothyroidism # Hyperlipidemia # Depression with Anxiety # Gastroesophageal Reflux Disease # Morbid Obesity - BMI 42.1 kg/m2 Continue with plan of care as mentioned below: 1. Continue with IV antibiotics; Will wean off the ventilator per pulmonary; awake and following some commands. Appreciate pulmonary assistance in patient's care 2. Cultures have been negative 3. Repeat chest x-ray shows mild infiltrates 4. Continue with nebs as needed 5. Wean off mechanical ventilator 6. Continue with IV hydration-banana bag 7. Repeat labs 8. GI and DVT prophylaxis
--- NOTE | 2022-05-28 07:07 | P.PN ---
Date of Service: 05/27/22 Subjective Patient is fairly stable. No significant changes. Review of Systems Intubated and sedated Physical Examination - Vital Signs Reviewed - Physical Exam General: Other (intubated, sedated) Respiratory: Diminished, Crackles/rales Cardiovascular: Regular rate/rhythm, Normal S1 S2, No gallops, No rubs, No murmurs, Edema (trace) Gastrointestinal: Normal bowel sounds, Soft and benign, No tenderness, No rebound, No guarding, Distended Neurological: Other (sedated) Assessment And Plan - Assessment # Acute Hypoxemic Respiratory Failure - likely secondary to Community-Acquired Pneumonia and suspect Acute Respiratory Distress Syndrome # Prolonged QTc Interval # Severe Sepsis likely secondary to Community-Acquired Pneumonia # Alcohol Use Disorder # Severe Hypokalemia # Tobacco Use Disorder # Hypertension # Hypothyroidism # Hyperlipidemia # Depression with Anxiety # Gastroesophageal Reflux Disease # Morbid Obesity - BMI 42.1 kg/m2 Continue with plan of care as mentioned below: 1. Continue with IV antibiotics; Will wean off the ventilator hopefully over the next 48 to 72 hours. Appreciate pulmonary assistance in patient's care 2. Cultures have been negative 3. Repeat chest x-ray in a.m. 4. Monitor for DTs 5. Will probably need placement at inpatient rehab once we are able to extubate her 6. Continue with nebs as needed 7. O2 per protocol 8. Continue with gentle hydration 9. Repeat labs including CBC and renal function in a.m. 10. Monitor neurologic status 11.Range of motion exercises 12.GI and DVT prophylaxis
[2022-05-28] MEDS: FUROSEMIDE 40 MG/4 ML VIAL IV SCH (07:43)
[2022-05-28] MEDS: ENOXAPARIN 40 MG/0.4 ML SQ SCH (07:43)
[2022-05-28] MEDS: METHYLPREDNISOLONE 125 MG INJ IV SCH (07:43)
[2022-05-28] MEDS: FAMOTIDINE 20 MG/2 ML VIAL IV SCH ×2 (07:44→20:38)
[2022-05-28] MEDS: NICOTINE 14 MG/PAT TD SCH (07:45)
[2022-05-28] MEDS: THIAMINE 200 MG/2 ML INJ IVP SCH ×2 (07:45→20:38)
[2022-05-28] MEDS: CEFTRIAXONE 1,000 MG in NA CHLORIDE 0.9% 50 ML IVPB SCH (07:45)
[2022-05-28] MEDS: PARoxetine HCL 10 MG TAB PO SCH (07:45)
[2022-05-28] MEDS: ACETAMINOPHEN 325 MG TABLET PO PRN (07:50)
--- NOTE | 2022-05-28 08:40 | P.PN ---
Subjective Date of Service: 05/28/22 Primary Care Provider: Dr. Butt Chief Complaint: Respiratory failure Patient is improving opens her eyes intermittently off sedation requirements below 50% Review of Systems is unable to be obtained Physical Examination - Vital Signs Temperature: 100.1 F Blood Pressure: 138/79 Pulse: 65 Respirations: 12 Pulse Ox (%): 96 - Physical Exam General: Other (Intermittently opens her eyes) Respiratory: Clear to auscultation bilaterally Cardiovascular: Normal pulses, Normal S1 S2 Assessment And Plan - Current Problems (Diagnosis) (1) Respiratory failure with hypoxia Current Visit: Yes Status: Acute Plan: Admitted with respiratory failure doing much better plan to wean off the ventilator she is off all sedations and paralytic vital signs stable cultures are all negative chest x-ray has been ordered all labs reviewed cultures are negative DC Rocephin continue with levofloxacin for now vital signs stable Qualifiers: Chronicity: acute Qualified Code(s): J96.01 - Acute respiratory failure with hypoxia (2) Alcoholism Current Visit: Yes Status: Acute Plan: Condition stable so far add additional thiamine 200 mg twice a day
[2022-05-28] MEDS: METHYLPREDNISOLONE 40 MG INJ IV SCH ×2 (09:00→20:38)
[2022-05-28] MEDS: FOLIC ACID 1 MG, MULTIVITAMINS INJ 10 ML, THIAMINE HCL 100 MG in NA CHLORIDE 0.9% 1,000 ML IV SCH (09:52)
--- NOTE | 2022-05-28 09:59 | RAD REPORT ---
EXAM DESCRIPTION: RAD - Chest Single View - 05/28/2022 9:30 am CLINICAL HISTORY: pneumonia TECHNIQUE: AP portable chest image was obtained 05/28/2022 9:30 am . FINDINGS: Endotracheal tube remains in place. Tip is top of the aortic arch 4.5 cm above the erick. NG tube extends below the diaphragm with the tip off the field of view. Left-side PICC line remains in place. Lung volumes are low. No dense consolidation is seen. There is a subtle increase in opacification in the right lung field that is probably the affects of low lung volume. Lung parenchyma is not clearly changed from prior imaging Heart and vasculature are normal. No measurable pleural effusion and no pneumothorax. No acute bony a bnormality seen. No acute aortic findings suspected. IMPRESSION: No new mass or consolidation. Lung markings are not substantially different from compari son. Slight increase in the right lung field is probably due to low lung volume. ET tube, NG tube and PICC line remain in place, well-positioned.
[2022-05-28] MEDS ORDERED: MIDAZOLAM HCL 2 MG/2 ML INJ IV PRN (13:30)
[2022-05-28] MEDS ORDERED: POTASSIUM 25 MEQ EFFERV TAB PO ONE (13:36)
[2022-05-28] MEDS ORDERED: POTASSIUM CL 40 MEQ in NA CHLORIDE 0.9% 500 ML IV SCH (14:00)
[2022-05-29] MEDS: FENTANYL CITR 100 MCG/2 ML IV PRN ×3 (00:44→22:18)
[2022-05-29] MEDS: LORazepam 2 MG/ML VIAL IV PRN ×4 (06:02→20:01)
[2022-05-29] MEDS: LEVOTHYROXINE SOD 0.1 MG TAB PO SCH (06:02)
[2022-05-29 06:52] LABS: Absolute Lymphocytes (CBC) 0.7 K/uL (0.7-4.9); Hematocrit 34.3 % (36.0-45.0); Lymphocytes % 6.8 % (15.3-44.8); MCV 84.9 fL (80-100); MPV 9.5 fL (7.6-11.3); RBC Red Blood Cell Count 4.04 M/uL (3.86-4.86)
[2022-05-29 07:10] LABS: Albumin 2.2 g/dL (3.4-5.0); Bilirubin Total 1.1 mg/dL (0.2-1.0); Magnesium 2.8 mg/dL (1.8-2.4); Phosphorus 1.9 mg/dL (2.5-4.9); Potassium 3.7 mmol/L (3.5-5.1); Protein, Total 6.6 g/dL (6.4-8.2)
[2022-05-29] MEDS: FOLIC ACID 1 MG, MULTIVITAMINS INJ 10 ML, THIAMINE HCL 100 MG in NA CHLORIDE 0.9% 1,000 ML IV SCH (08:23)
[2022-05-29] MEDS: FUROSEMIDE 40 MG/4 ML VIAL IV SCH (08:23)
[2022-05-29] MEDS: FAMOTIDINE 20 MG/2 ML VIAL IV SCH ×2 (08:25→20:01)
[2022-05-29] MEDS: ENOXAPARIN 40 MG/0.4 ML SQ SCH (08:26)
[2022-05-29] MEDS: THIAMINE 200 MG/2 ML INJ IVP SCH ×2 (08:27→20:01)
[2022-05-29] MEDS: NICOTINE 14 MG/PAT TD SCH (08:27)
[2022-05-29] MEDS: METHYLPREDNISOLONE 40 MG INJ IV SCH (08:27)
[2022-05-29] MEDS: PARoxetine HCL 10 MG TAB PO SCH (08:30)
--- NOTE | 2022-05-29 12:19 | P.PN ---
Subjective Date of Service: 05/29/22 Primary Care Provider: Dr. Butt Chief Complaint: Respiratory failure Unable to wean off the patient from the end ventilator chest x-ray has cleared patient agitated Review of Systems is unable to be obtained Physical Examination - Vital Signs Temperature: 98.5 F Blood Pressure: 147/90 Pulse: 72 Respirations: 26 Pulse Ox (%): 96 - Physical Exam General: Unresponsive Cardiovascular: No edema, Normal pulses, Normal S1 S2 - Studies Microbiology Data (last 24 hrs): 05/23/22 10:07 Blood - Blood Aerobic Blood Culture - Final No growth in 5 days. 05/23/22 10:07 Blood - Blood Anaerobic Blood Culture - Final No growth in 5 days. 05/23/22 08:40 Blood - Blood Aerobic Blood Culture - Final No growth in 5 days. 05/23/22 08:40 Blood - Blood Anaerobic Blood Culture - Final No growth in 5 days. Assessment And Plan - Current Problems (Diagnosis) (1) Respiratory failure with hypoxia Current Visit: Yes Status: Acute Plan: Patient is doing better oxygenation satisfactory hemodynamically stable chest x- ray is now clear plan to wean off the ventilator tried spontaneous breathing trial yesterday failed patient is now hypernatremic DC Lasix start some D5 water cultures negative patient is on tube feeds 50 cc an hour continue weaning process Qualifiers: Chronicity: acute Qualified Code(s): J96.01 - Acute respiratory failure with hypoxia (2) Alcoholism Current Visit: Yes Status: Acute Plan: Condition stable so far add additional thiamine 200 mg twice a day
[2022-05-29] MEDS: D5W 1,000 ML IV SCH (12:53)
[2022-05-29] MEDS: predniSONE 20 MG TAB PO SCH (20:00)
[2022-05-29] MEDS: Levofloxacin 750mg IV 750 MG/150 ML BAG IV SCH (22:11)
[2022-05-30] MEDS: D5W 1,000 ML IV SCH (01:08)
[2022-05-30] MEDS: LORazepam 2 MG/ML VIAL IV PRN ×2 (01:08→05:55)
[2022-05-30] MEDS: LEVOTHYROXINE SOD 0.1 MG TAB PO SCH (05:56)
[2022-05-30] MEDS: FOLIC ACID 1 MG, MULTIVITAMINS INJ 10 ML, THIAMINE HCL 100 MG in NA CHLORIDE 0.9% 1,000 ML IV SCH (07:56)
[2022-05-30] MEDS: THIAMINE 200 MG/2 ML INJ IVP SCH ×2 (07:56→21:59)
[2022-05-30] MEDS: FAMOTIDINE 20 MG/2 ML VIAL IV SCH ×2 (07:56→21:59)
[2022-05-30] MEDS: ENOXAPARIN 40 MG/0.4 ML SQ SCH (07:56)
[2022-05-30] MEDS: NICOTINE 14 MG/PAT TD SCH (07:57)
[2022-05-30] MEDS: PARoxetine HCL 10 MG TAB PO SCH (07:57)
[2022-05-30] MEDS: predniSONE 20 MG TAB PO SCH ×2 (07:57→21:59)
[2022-05-30 09:22] LABS: Hematocrit 33.5 % (36.0-45.0); MCV 85.8 fL (80-100); MPV 10.4 fL (7.6-11.3); RBC Red Blood Cell Count 3.91 M/uL (3.86-4.86)
[2022-05-30 09:36] LABS: Albumin 2.2 g/dL (3.4-5.0); Bilirubin Total 1.2 mg/dL (0.2-1.0); Potassium 3.7 mmol/L (3.5-5.1); Protein, Total 6.2 g/dL (6.4-8.2)
--- NOTE | 2022-05-30 10:18 | RAD REPORT ---
EXAM DESCRIPTION: RAD - Abdomen 1 View (KUB) - 05/30/2022 10:01 am CLINICAL HISTORY: Abdomen pain FINDINGS: The bowel gas pattern is unremarkable. A nasogastric tube appears to enter it would the duodenum. The tip probably lies within the fourth po rtion of the duodenum.
--- NOTE | 2022-05-30 10:26 | RAD REPORT ---
EXAM DESCRIPTION: [place] Single View05/30/2022 10:01 am CLINICAL HISTORY: Respiratory failure COMPARISON: May 28, 2022 FINDINGS: Mild bilateral pulmonary opacities. Heart is normal size. Endotracheal tube has its tip just above the level of the aortic arch. Nasogastric tube enters the st omach IMPRESSION: No significant change in mild bilateral pulmonary opacities
[2022-05-30 10:53] LABS: Blood Morphology Comment NOT SEEN (NOT SEEN); Platelet Estimate DECR; White Blood Cell Scan OK (OK)
--- NOTE | 2022-05-30 12:21 | P.PN ---
Subjective Date of Service: 05/30/22 Primary Care Provider: Dr. Butt Chief Complaint: Respiratory failure Patient's condition is stable she is minimally responsive has some abdominal distention hemodynamically stable Review of Systems is unable to be obtained Physical Examination - Vital Signs Temperature: 98.1 F Blood Pressure: 142/92 Pulse: 83 Respirations: 30 Pulse Ox (%): 96 - Physical Exam General: Other (Patient open eyes to command) HEENT: Atraumatic Neck: Supple Cardiovascular: No edema, Regular rate/rhythm Gastrointestinal: Normal bowel sounds, Distended Assessment And Plan - Current Problems (Diagnosis) (1) Respiratory failure with hypoxia Current Visit: Yes Status: Acute Plan: Respiratory failure we will continue to wean chest x-ray is clear no evidence of sepsis hyponatremia improving increase water flushes patient is becoming edematous liver function tests have also improved labs and medication list reviewed KUB no evidence of bowel obstruction Qualifiers: Chronicity: acute Qualified Code(s): J96.01 - Acute respiratory failure with hypoxia (2) Alcoholism Current Visit: Yes Status: Acute Plan: Condition stable so far add additional thiamine 200 mg twice a day
[2022-05-30] MEDS: FENTANYL CITR 100 MCG/2 ML IV PRN (21:59)
--- NOTE | 2022-05-30 22:40 | P.PN ---
Date of Service: 05/29/22 Subjective Pt weaning from vent; following commands; oxygenation has improved. On SIMV. Review of Systems Intubated and sedated Physical Examination - Vital Signs Reviewed - Physical Exam General: Other (intubated, sedated) Respiratory: Diminished, Crackles/rales Cardiovascular: Regular rate/rhythm, Normal S1 S2, No gallops, No rubs, No murmurs, Edema (trace) Gastrointestinal: Normal bowel sounds, Soft and benign, No tenderness, No rebound, No guarding, Distended Neurological: Other (sedated) Assessment And Plan - Assessment # Acute Hypoxemic Respiratory Failure - likely secondary to Community-Acquired Pneumonia and suspect Acute Respiratory Distress Syndrome # Prolonged QTc Interval # Severe Sepsis likely secondary to Community-Acquired Pneumonia # Alcohol Use Disorder # Severe Hypokalemia # Tobacco Use Disorder # Hypertension # Hypothyroidism # Hyperlipidemia # Depression with Anxiety # Gastroesophageal Reflux Disease # Morbid Obesity - BMI 42.1 kg/m2 Continue with plan of care as mentioned below: 1. Continue with IV antibiotics; Appreciate pulmonary assistance in patient's care 2. Cultures have been negative 3. CXR as needed 4. Labs pending 5. Continue with nebs as needed 7. O2 per protocol 8. Continue with gentle hydration 9. Repeat labs 10. GI and DVT prophylaxis
--- NOTE | 2022-05-30 22:40 | P.PN ---
Date of Service: 05/30/22 Subjective patient continues to improve. Clinical symptoms are improving. We will continue with weaning off of ventilator. Continue with tube feeds. Abdomen was distended but no abnormalities on KUB. Chest x-ray with improved aeration with mild infiltrates bilaterally. Overall, clinical picture is improving. Review of Systems Intubated and sedated Physical Examination - Vital Signs Reviewed - Physical Exam General: Other (intubated, sedated) Respiratory: Diminished, Crackles/rales Cardiovascular: Regular rate/rhythm, Normal S1 S2, No gallops, No rubs, No murmurs, Edema (trace) Gastrointestinal: Normal bowel sounds, Soft and benign, No tenderness, No rebound, No guarding, Distended Neurological: Other (sedated) Assessment And Plan - Assessment # Acute Hypoxemic Respiratory Failure - likely secondary to Community-Acquired Pneumonia and suspect Acute Respiratory Distress Syndrome # Prolonged QTc Interval # Severe Sepsis likely secondary to Community-Acquired Pneumonia # Alcohol Use Disorder # Severe Hypokalemia # Tobacco Use Disorder # Hypertension # Hypothyroidism # Hyperlipidemia # Depression with Anxiety # Gastroesophageal Reflux Disease # Morbid Obesity - BMI 42.1 kg/m2 Continue with plan of care as mentioned below: 1. Continue with IV antibiotics; wean off ventilator 2. Cultures negative 3. Repeat imaging studies with improvement 4. Continue with nebs as needed 5. Continue with gentle hydration 6. Repeat labs 7. Repeat blood pressure and blood sugar control range of motion exercises 8. GI and DVT prophylaxis
[2022-05-31] MEDS: LEVOTHYROXINE SOD 0.1 MG TAB PO SCH (06:11)
--- NOTE | 2022-05-31 08:05 | RAD REPORT ---
EXAM DESCRIPTION: RAD - Chest Single View - 05/31/2022 5:31 am CLINICAL HISTORY: Tracey failure COMPARISON: Abdomen 1 View (KUB) dated 05/30/2022; Chest Single View dated 05/30/2022; Chest Single Vi ew dated 05/28/2022; Chest Single View dated 05/27/2022 FINDINGS: Lines: Endotracheal tube in similar positioning at the top of the aortic arch. Left subcla vian approach PICC in similar positioning. NG tube below the diaphragm. Lungs: Bilateral airspace disease without significant change. Pleural: No significant pleural effusions or pneumothorax. Cardiac: The heart size is within normal limits. Mediastinum: Within normal limits. Bones: No acute fractures. Other: None IMPRESSION: No significant interval change in aeration of the lungs compared 05/30/2022. Support keely aratus stable.
--- NOTE | 2022-05-31 08:06 | RAD REPORT ---
EXAM DESCRIPTION: RAD - Abdomen 1 View (KUB) - 05/31/2022 5:31 am CLINICAL HISTORY: Abd/distention COMPARISON: Abdomen 1 View (KUB) dated 05/30/2022; Abdomen 1 View (KUB) dated 05/24/2022 FINDINGS: Nonobstructive bowel gas pattern. No acute osseous abnormality.Visualized lungs are unrema rkable.No abnormal calcifications. The enteric tube is transpyloric with tip overlying the fourth por tion the duodenum. IMPRESSION: Nonobstructive bowel gas pattern. Transpyloric enteric tube with tip overlying the fourt h portion of the duodenum.
--- NOTE | 2022-05-31 08:45 | P.PN ---
Date of Service: 05/31/22 Subjective Patient doing okay. Plan to extubate today. Weaning off the ventilator at this time. Review of Systems Intubated and sedated Physical Examination - Vital Signs Reviewed - Physical Exam General: Other (intubated, sedated) Respiratory: Diminished, Crackles/rales Cardiovascular: Regular rate/rhythm, Normal S1 S2, No gallops, No rubs, No murmurs, Edema (trace) Gastrointestinal: Normal bowel sounds, Soft and benign, No tenderness, No rebound, No guarding, Distended Neurological: Other (sedated) Assessment And Plan - Assessment # Acute Hypoxemic Respiratory Failure - likely secondary to Community-Acquired Pneumonia and suspect Acute Respiratory Distress Syndrome # Prolonged QTc Interval # Severe Sepsis likely secondary to Community-Acquired Pneumonia # Alcohol Use Disorder # Severe Hypokalemia # Tobacco Use Disorder # Hypertension # Hypothyroidism # Hyperlipidemia # Depression with Anxiety # Gastroesophageal Reflux Disease # Morbid Obesity - BMI 42.1 kg/m2 Continue with plan of care as mentioned below: 1. Continue with IV antibiotics; weaning off ventilator 2. Cultures negative 3. Repeat imaging studies showing improvement; plan to extubate later today. 4. Continue with nebs as needed 5. Hplock IV 6. Repeat labs 7. Strict blood pressure and blood sugar control 8. Range of motion exercises 9. GI and DVT prophylaxis
[2022-05-31] MEDS: FAMOTIDINE 20 MG/2 ML VIAL IV SCH ×2 (08:52→20:24)
[2022-05-31] MEDS: PARoxetine HCL 10 MG TAB PO SCH (08:52)
[2022-05-31] MEDS: THIAMINE 200 MG/2 ML INJ IVP SCH ×2 (08:52→20:24)
[2022-05-31] MEDS: predniSONE 20 MG TAB PO SCH ×2 (08:52→20:24)
[2022-05-31] MEDS: ENOXAPARIN 40 MG/0.4 ML SQ SCH (08:53)
[2022-05-31] MEDS: NICOTINE 14 MG/PAT TD SCH (08:53)
[2022-05-31 09:17] LABS: MCV 85.2 fL (80-100); MPV 10.4 fL (7.6-11.3); RBC Red Blood Cell Count 3.87 M/uL (3.86-4.86)
[2022-05-31 09:25] LABS: Albumin 2.2 g/dL (3.4-5.0); Bilirubin Total 1.5 mg/dL (0.2-1.0); Potassium 4.3 mmol/L (3.5-5.1); Protein, Total 6.3 g/dL (6.4-8.2)
[2022-05-31 10:55] LABS: Magnesium 2.8 mg/dL (1.8-2.4)
--- NOTE | 2022-05-31 11:49 | P.PN ---
Subjective Date of Service: 05/31/22 Primary Care Provider: Dr. Butt Chief Complaint: Respiratory failure Patient's condition is stable she failed the weaning trial again today times tachypnea Review of Systems is unable to be obtained Physical Examination - Vital Signs Temperature: 99.4 F Blood Pressure: 130/88 Pulse: 98 Respirations: 26 Pulse Ox (%): 97 - Physical Exam General: Alert Respiratory: Clear to auscultation bilaterally Cardiovascular: No edema, Regular rate/rhythm, Normal S1 S2 Gastrointestinal: Normal bowel sounds, Soft and benign Assessment And Plan - Current Problems (Diagnosis) (1) Respiratory failure with hypoxia Current Visit: Yes Status: Acute Plan: Respiratory failure patient failed the pressure support weaning trial today comes anxious tachypneic we will try to use dexmedetomidine drip is try weaning her again chest x-ray is cleared up White count is mildly elevated patient's vital signs are stable cultures are negative hyponatremia corrected renal function test is normal endotracheal tube satisfactory Qualifiers: Chronicity: acute Qualified Code(s): J96.01 - Acute respiratory failure with hypoxia (2) Alcoholism Current Visit: Yes Status: Acute Plan: Condition stable so far add additional thiamine 200 mg twice a day
[2022-05-31] MEDS: DEXMEDETOMIDINE HCL 200 MCG in NA CHLORIDE 0.9% 98 ML IV SCH ×2 (13:32→19:50)
--- NOTE | 2022-05-31 15:13 | P.PN ---
Subjective Date of Service: 05/31/22 Primary Care Provider: Dr. Butt Chief Complaint: Respiratory failure Patient failed again her spontaneous breathing trial she was tried on pressure support of 15 and had to be put back on SIMV and pressure support she becomes rather anxious and starts breathing rapidly days patient is less responsive tolerated SIMV and pressure support yesterday Review of Systems is unable to be obtained Physical Examination - Vital Signs Temperature: 97.4 F Blood Pressure: 137/85 Pulse: 85 Respirations: 23 Pulse Ox (%): 94 - Physical Exam General: Other (Patient does open her eyes on command) Neck: Supple Respiratory: Clear to auscultation bilaterally Cardiovascular: No edema, Regular rate/rhythm Gastrointestinal: Normal bowel sounds, Soft and benign Assessment And Plan - Current Problems (Diagnosis) (1) Respiratory failure with hypoxia Current Visit: Yes Status: Acute Plan: Respiratory failure oxygenation satisfactory hemodynamically stable cultures are negative chest x-ray reviewed will need to advance her endotracheal tube currently a sat is 95% on 40% FiO2 we will plan to put her back on SIMV and pressure support and try the weaning process probably anxious is a significant history of alcohol abuse we will start patient on dexmedetomidine to see hopefully we can wean her off and extubated she may need high flow oxygen cultures are negative so far White count is mildly elevated hyponatremia corrected Qualifiers: Chronicity: acute Qualified Code(s): J96.01 - Acute respiratory failure with hypoxia (2) Alcoholism Current Visit: Yes Status: Acute Plan: Condition stable so far add additional thiamine 200 mg twice a day
[2022-06-01] MEDS: LEVOTHYROXINE SOD 0.1 MG TAB PO SCH (05:41)
[2022-06-01 06:47] LABS: Hematocrit 30.1 % (36.0-45.0); MCV 86.1 fL (80-100); MPV 10.7 fL (7.6-11.3)
[2022-06-01] MEDS: DEXMEDETOMIDINE HCL 200 MCG in NA CHLORIDE 0.9% 98 ML IV SCH (06:47)
[2022-06-01 07:09] LABS: Albumin 2.1 g/dL (3.4-5.0); Bilirubin Total 1.3 mg/dL (0.2-1.0); Potassium 4.4 mmol/L (3.5-5.1); Protein, Total 5.8 g/dL (6.4-8.2)
[2022-06-01] MEDS: PARoxetine HCL 10 MG TAB PO SCH (07:57)
[2022-06-01] MEDS: ENOXAPARIN 40 MG/0.4 ML SQ SCH (07:57)
[2022-06-01] MEDS: THIAMINE 200 MG/2 ML INJ IVP SCH ×2 (07:58→19:50)
[2022-06-01] MEDS: FAMOTIDINE 20 MG/2 ML VIAL IV SCH ×2 (07:58→19:50)
[2022-06-01] MEDS: predniSONE 20 MG TAB PO SCH (07:58)
--- NOTE | 2022-06-01 08:04 | RAD REPORT ---
EXAM DESCRIPTION: [place] Single View06/01/2022 7:04 am CLINICAL HISTORY: Respiratory failure COMPARISON: May 30, 2022 FINDINGS: Endotracheal and nasogastric tubes in good position PICC line in place Bilateral pulmonary opacities stable. Heart is mildly enlarged. IMPRESSION: No significant change since the prior exam
[2022-06-01] MEDS: NICOTINE 14 MG/PAT TD SCH (08:25)
[2022-06-01] MEDS ORDERED: GLUCAGON 1 MG/VIAL IM PRN (11:43)
[2022-06-01] MEDS ORDERED: D50W 25 GM/50 ML SYRINGE IV PRN (11:43)
--- NOTE | 2022-06-01 12:07 | P.PN ---
Subjective Date of Service: 06/01/22 Primary Care Provider: Dr. Butt Chief Complaint: Respiratory failure Patient is tolerating SIMV with pressure support however she is very minimally responsive opens her eyes does not move any extremity mother at the bedside Review of Systems is unable to be obtained Physical Examination - Vital Signs Temperature: 98.1 F Blood Pressure: 128/77 Pulse: 51 Respirations: 21 Pulse Ox (%): 98 - Physical Exam General: Unresponsive Respiratory: Clear to auscultation bilaterally Cardiovascular: Regular rate/rhythm, Edema (Generalized anasarca) Gastrointestinal: Normal bowel sounds, Soft and benign Assessment And Plan - Current Problems (Diagnosis) (1) Respiratory failure with hypoxia Current Visit: Yes Status: Acute Plan: Patient is doing better hyponatremia corrected continues nasogastric tube flushed patient is hyperglycemic start on low-dose insulin will DC steroid 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
[2022-06-01] MEDS: INSULIN -REGULAR HUMAN 50 UNIT/0.5 ML ML SQ SCH ×2 (13:00→17:39)
[2022-06-01] MEDS: INSULIN GLARGINE 100 UNIT/ML SQ SCH (13:01)
[2022-06-02 05:20] LABS: Absolute Lymphocytes (CBC) 2.6 K/uL (0.7-4.9); Hematocrit 31.9 % (36.0-45.0); MCV 85.7 fL (80-100); MPV 10.3 fL (7.6-11.3); RBC Red Blood Cell Count 3.73 M/uL (3.86-4.86)
[2022-06-02 05:40] LABS: Albumin 2.3 g/dL (3.4-5.0); Bilirubin Total 1.9 mg/dL (0.2-1.0); Potassium 3.6 mmol/L (3.5-5.1); Protein, Total 6.3 g/dL (6.4-8.2)
[2022-06-02] MEDS: LEVOTHYROXINE SOD 0.1 MG TAB PO SCH (05:48)
[2022-06-02] MEDS: INSULIN -REGULAR HUMAN 50 UNIT/0.5 ML ML SQ SCH ×4 (05:48→17:52)
--- NOTE | 2022-06-02 07:20 | RAD REPORT ---
EXAM DESCRIPTION: RAD - Chest Single View - 06/02/2022 6:52 am CLINICAL HISTORY: Respiratory failure COMPARISON: Portable 06/01/2022 TECHNIQUE: AP portable chest image was obtained 06/02/2022 6:52 am . FINDINGS: Endotracheal tube has been removed since prior imaging. Left subclavian pacemaker remains in place, unchanged in positioning. Lung volumes are low. Interstitial and patchy alveolar opacities have improved. Heart and vasculature are normal. No measurable pleural effusion and no pneumothorax. No acute bony abnormality seen. No acute aortic findings suspected. IMPRESSION: Interstitial and patchy alveolar opacities have improved from prior imaging. Endotracheal tube has been removed since prior examination.
[2022-06-02] MEDS: THIAMINE 200 MG/2 ML INJ IVP SCH ×2 (10:01→20:06)
[2022-06-02] MEDS: ENOXAPARIN 40 MG/0.4 ML SQ SCH (10:01)
[2022-06-02] MEDS: FAMOTIDINE 20 MG/2 ML VIAL IV SCH ×2 (10:01→20:06)
[2022-06-02] MEDS: INSULIN GLARGINE 100 UNIT/ML SQ SCH (10:02)
--- NOTE | 2022-06-02 14:00 | RAD REPORT ---
EXAM DESCRIPTION: CT - Abdomen Pelvis W Contrast - 06/02/2022 1:32 pm CLINICAL HISTORY: abd distention COMPARISON: Chest Single View dated 06/02/2022 TECHNIQUE: Biphasic, helical CT imaging of the abdomen and pelvis was performed following 100 ml non -ionic IV contrast. Oral contrast: Yes All CT scans are performed using dose optimization technique as appropriate and may include automated exposure control or mA/KV adjustment according to patient size. FINDINGS: Respiratory motion artifact is present. There is some patchy airspace opacification presen t anterior right lung base. Minimal pneumonia cannot be excluded. Chest is not fully evaluated. Liver is abnormal. There is a lobulated liver capsule contour typical for cirrhosis or diffuse hepati c parenchymal disease. A focal lesion of the liver is not seen. Portal vein opacifies normally. Liver is not enlarged. No splenomegaly or focal splenic abnormality. No pancreatic or peripancreatic abnor mality peer gallbladder is mostly contracted. No abnormal biliary tree dilatation. Symmetric renal function is seen with no hydronephrosis or suspicious renal mass. No pyelonephritis o r acute parenchymal process. Urinary bladder is fully contracted around a Lopez catheter. No adrenal abnormalities. Stomach is mostly decompressed. No focal gastric wall thickening, mass or edema identifiable. Large a nd small bowel are not abnormally dilated. Patient has sigmoid diverticulosis. Maxwell of the cecum and ascending colon appear mildly thickened and edematous. Typhlitis or right-sided colitis would be a c onsideration. Moderate amount of ascites present primarily adjacent to the liver and along the right pericolic gutter. No free air or pneumatosis. No abscess identified. No hernia, mass or bulky lymph adenopathy. No suspicious bony findings. IMPRESSION: Cirrhosis or diffuse hepatic parenchymal changes are present with no focal liver lesion identified. Moderate volume of ascites. Wall thickening and edema involving the cecum and ascending colon. Typhlitis or right-sided colitis w ould be considerations. Patchy airspace opacification at the right anterior lung base is present but only partially imaged. A n anterior right lung base mild pneumonia cannot be excluded.
--- NOTE | 2022-06-02 17:16 | P.PN ---
Date of Service: 06/01/22 Subjective Patient was extubated. Patient doing better. Patient waking up and following some commands. Her abdomen appears to be a little distended. Review of Systems Following commands but no complaints voiced Physical Examination - Vital Signs Reviewed - Physical Exam General: awakens and responds to commands. Respiratory: Basilar crackles Cardiovascular: Regular rate/rhythm, Normal S1 S2, No gallops, No rubs, No murmurs, Edema (trace) Gastrointestinal: Abdomen is distended Neurological: Lethargic but follows commands and moves all extremities Assessment And Plan - Assessment # Acute Hypoxemic Respiratory Failure - likely secondary to Community-Acquired Pneumonia and suspect Acute Respiratory Distress Syndrome # Prolonged QTc Interval # Severe Sepsis likely secondary to Community-Acquired Pneumonia # Alcohol Use Disorder # Severe Hypokalemia # Tobacco Use Disorder # Hypertension # Hypothyroidism # Hyperlipidemia # Depression with Anxiety # Gastroesophageal Reflux Disease # Morbid Obesity - BMI 42.1 kg/m2 Continue with plan of care as mentioned below: 1. Continue with IV antibiotics; weaned off ventilator; extubated 06/01 2. Continue with nebs and steroids; wean them off 3. Abdominal distention; KUB 4. PT evaluation 5. Heplock IV; may need to diurese 6. Repeat labs; monitor LFTs 7. Strict blood pressure and blood sugar control 8. Nicotine patches 9. GI and DVT prophylaxis
--- NOTE | 2022-06-02 17:21 | P.PN ---
Date of Service: 06/02/[address] imaging reveals ascites. Lung findings are clear. Plan to diurese and paracentesis Review of Systems Following commands but no complaints voiced Physical Examination - Vital Signs Reviewed - Physical Exam General: awakens and responds to commands. Respiratory: Basilar crackles Cardiovascular: RRR; no murmur Gastrointestinal: Abdomen is distended; nontender Neurological: Awakens and follows commands and moves all extremities Assessment And Plan - Assessment # Acute Hypoxemic Respiratory Failure - likely secondary to Community-Acquired Pneumonia and suspect Acute Respiratory Distress Syndrome # Prolonged QTc Interval # Severe Sepsis likely secondary to Community-Acquired Pneumonia # Alcohol Use Disorder # Severe Hypokalemia # Tobacco Use Disorder # Hypertension # Hypothyroidism # Hyperlipidemia # Depression with Anxiety # Gastroesophageal Reflux Disease # Morbid Obesity - BMI 42.1 kg/m2 Continue with plan of care as mentioned below: 1. Continue with IV antibiotics; extubated 06/01 2. Continue with nebs and steroids; 3. Abdominal distention; CT with ascites; will diurese and US guided paracentesis in the AM 4. PT evaluation 5. Heplock IV; 6. Repeat labs; monitor LFTs 7. Strict blood pressure and blood sugar control 8. Nicotine patch 9. GI and DVT prophylaxis
[2022-06-02] MEDS ORDERED: ALBUMIN HUMAN 25% 12.5 GM, FUROSEMIDE 100 MG in NA CHLORIDE 0.9% 40 ML IV SCH (19:00)
[2022-06-03] MEDS: INSULIN -REGULAR HUMAN 50 UNIT/0.5 ML ML SQ SCH ×5 (06:00→23:39)
[2022-06-03] MEDS: LEVOTHYROXINE SOD 0.1 MG TAB PO SCH (06:07)
[2022-06-03 06:43] LABS: Absolute Lymphocytes (CBC) 1.6 K/uL (0.7-4.9); Hematocrit 29.8 % (36.0-45.0); Lymphocytes % 14.7 % (15.3-44.8); MCV 86.2 fL (80-100); RBC Red Blood Cell Count 3.46 M/uL (3.86-4.86)
[2022-06-03 07:11] LABS: Albumin 2.4 g/dL (3.4-5.0); Bilirubin Total 1.9 mg/dL (0.2-1.0); Magnesium 2.3 mg/dL (1.8-2.4); Phosphorus 4.9 mg/dL (2.5-4.9); Potassium 3.2 mmol/L (3.5-5.1); Protein, Total 6.3 g/dL (6.4-8.2)
--- NOTE | 2022-06-03 07:26 | RAD REPORT ---
EXAM DESCRIPTION: RAD - Chest Single View - 06/03/2022 6:26 am CLINICAL HISTORY: pneumonia COMPARISON: Portable 06/02/2022 TECHNIQUE: AP portable chest image was obtained 06/03/2022 6:26 am . FINDINGS: Lung volumes remain low. Interstitial and patchy alveolar opacities are stable compared to prior day imaging. Heart size and vasculature remain prominent. Patient can be monitored for possibl e failure or volume overload. Left subclavian PICC line is unchanged. No measurable pleural effusion and no pneumothorax. No acute bony abnormality seen. No acute aortic findings suspected. IMPRESSION: Stable portable chest. Heart, vasculature and lung markings are prominent but stable. Patient can be monitored for any possi ble concurrent failure or volume overload.
[2022-06-03 07:45] LABS: Blood Gas Oxyhemoglobin 95.3 % (94-97); Blood O2 Saturation 98.2 % (92-98.5)
[2022-06-03 07:46] LABS: Arterial Blood Carboxyhemoglob 1.9 % (0-1.5)
[2022-06-03] MEDS: ENOXAPARIN 40 MG/0.4 ML SQ SCH ×2 (08:18→14:21)
[2022-06-03] MEDS: THIAMINE 200 MG/2 ML INJ IVP SCH ×2 (08:20→21:02)
[2022-06-03] MEDS: FAMOTIDINE 20 MG/2 ML VIAL IV SCH (08:20)
[2022-06-03] MEDS: INSULIN GLARGINE 100 UNIT/ML SQ SCH (09:00)
--- NOTE | 2022-06-03 10:34 | RAD REPORT ---
EXAM DESCRIPTION: US - Paracentesis Proc Guidance - 06/03/2022 9:27 am CLINICAL HISTORY: Ascites COMPARISON: None. TECHNIQUE: The patient presents for ultrasound-guided paracentesis. The procedure, risks and altern atives were discussed with the patient's family member in detail. Oral and written consent were obtai sunday. Time out procedure was performed. The patient had no contraindicated allergy or medication his tory. Preliminary sonographic evaluation identified right lower quadrant access site. The skin and deeper tissues were anesthetized with 1 percent lidocaine. Under direct sonographic visualization, a parace ntesis catheter was advanced into the peritoneal cavity. Approximately 15 mL of ascites removed and r etained for laboratory studies to be requested by the referring service. A Large volume drainage was initiated. Approximately 4 liters of ascites removed. At the conclusion of the procedure, catheter was withdrawn and a bandage placed at the puncture site. Patient was transferred back to the floor for continued care. IMPRESSION: Ultrasound-guided paracentesis as detailed.
[2022-06-03 11:27] LABS: Appearance CLEAR (CLEAR); Body Fluid Source PERITONEAL; Body Fluid WBC 96 /mm^3; Color of fluid Yellow (COLORLESS)
[2022-06-03 11:40] LABS: Absolute Lymphocytes (CBC) 1.4 K/uL (0.7-4.9); Hematocrit 30.6 % (36.0-45.0); MCV 85.8 fL (80-100); MPV 10.6 fL (7.6-11.3); RBC Red Blood Cell Count 3.57 M/uL (3.86-4.86)
[2022-06-03 11:43] LABS: Albumin 2.5 g/dL (3.4-5.0); Bilirubin Total 1.9 mg/dL (0.2-1.0); Potassium 3.4 mmol/L (3.5-5.1); Protein, Total 6.4 g/dL (6.4-8.2)
[2022-06-03] MEDS ORDERED: LACTULOSE 20 GM/30 ML UCUP PO PRN (11:54)
--- NOTE | 2022-06-03 11:55 | P.PN ---
Subjective Date of Service: 06/03/22 Primary Care Provider: Dr. Butt Chief Complaint: Altered mental status presumed cirrhosis of the liver with ascites Patient did well yesterday and was extubated disoriented oriented x1 s/p paracentesis Review of Systems 10-point ROS is otherwise unremarkable Physical Examination - Vital Signs Temperature: 97.4 F Blood Pressure: 132/75 Pulse: 92 Respirations: 16 Pulse Ox (%): 97 - Physical Exam General: Alert, Oriented x1 Respiratory: Clear to auscultation bilaterally, Diminished Cardiovascular: Normal S1 S2, Edema Gastrointestinal: Normal bowel sounds, Distended Assessment And Plan - Current Problems (Diagnosis) (1) Respiratory failure with hypoxia Current Visit: Yes Status: Acute Plan: Patient was extubated yesterday still disoriented ammonia is mildly elevated patient has cirrhosis of the liver elevated ammonia level and hypernatremia start on some IV fluids Qualifiers: Chronicity: acute Qualified Code(s): J96.01 - Acute respiratory failure with hypoxia (2) Alcoholism Current Visit: Yes Status: Acute Plan: Condition stable so far add additional thiamine 200 mg twice a day
[2022-06-03] MEDS ORDERED: DEXTROSE 10%-WATER 125 ML IV PRN (12:01)
[2022-06-03] MEDS: D5W 1,000 ML IV SCH (14:21)
--- NOTE | 2022-06-03 16:09 | P.PN ---
Date of Service: 06/03/22 Subjective Patient's ammonia is elevated. Continue lactulose. Review of Systems Following commands but no complaints voiced Physical Examination - Vital Signs Reviewed - Physical Exam General: awakens and responds to commands. Respiratory: Basilar crackles Cardiovascular: RRR; no murmur Gastrointestinal: Abdomen is distended; nontender Neurological: Awakens and follows commands and moves all extremities Assessment And Plan - Assessment # Acute Hypoxemic Respiratory Failure - likely secondary to Community-Acquired Pneumonia and suspect Acute Respiratory Distress Syndrome # Prolonged QTc Interval # Severe Sepsis likely secondary to Community-Acquired Pneumonia # Alcohol Use Disorder # Severe Hypokalemia # Tobacco Use Disorder # Hypertension # Hypothyroidism # Hyperlipidemia # Depression with Anxiety # Gastroesophageal Reflux Disease # Morbid Obesity - BMI 42.1 kg/m2 Continue with plan of care as mentioned below: 1. Continue with IV antibiotics; extubated 06/01 2. Start lactulose and rifaximin 3. Status post paracentesis 4. PT evaluation 5. Heplock IV; 6. Repeat labs; monitor LFTs 7. Strict blood pressure and blood sugar control 8. Nicotine patch 9. GI and DVT prophylaxis
[2022-06-03] MEDS: LACTULOSE 20 GM/30 ML UCUP PO SCH (21:00)
[2022-06-03] MEDS: KCL 20 MEQ/100 mL IVPB 20 MEQ/100 ML BAG IV SCH ×2 (21:02→23:11)
[2022-06-04] MEDS: D5W 1,000 ML IV SCH ×2 (01:20→16:29)
[2022-06-04 05:39] LABS: Absolute Lymphocytes (CBC) 1.5 K/uL (0.7-4.9); Hematocrit 29.7 % (36.0-45.0); Lymphocytes % 18.6 % (15.3-44.8); MCV 85.5 fL (80-100); RBC Red Blood Cell Count 3.47 M/uL (3.86-4.86)
[2022-06-04 05:51] LABS: Albumin 2.3 g/dL (3.4-5.0); Bilirubin Total 1.7 mg/dL (0.2-1.0); Magnesium 2.3 mg/dL (1.8-2.4); Potassium 3.4 mmol/L (3.5-5.1); Protein, Total 6.1 g/dL (6.4-8.2)
[2022-06-04] MEDS: INSULIN -REGULAR HUMAN 50 UNIT/0.5 ML ML SQ SCH ×3 (06:00→18:00)
[2022-06-04] MEDS: LEVOTHYROXINE SOD 0.1 MG TAB PO SCH (06:11)
[2022-06-04] MEDS: KCL 20 MEQ/100 mL IVPB 20 MEQ/100 ML BAG IV SCH ×2 (06:22→08:42)
[2022-06-04] MEDS: THIAMINE 200 MG/2 ML INJ IVP SCH ×2 (08:41→21:33)
[2022-06-04] MEDS: LACTULOSE 20 GM/30 ML UCUP PO SCH ×2 (08:42→21:33)
[2022-06-04] MEDS: ENOXAPARIN 40 MG/0.4 ML SQ SCH (10:00)
--- NOTE | 2022-06-04 11:30 | P.PN ---
Subjective Date of Service: 06/04/22 Primary Care Provider: Dr. Butt Chief Complaint: Altered mental status presumed cirrhosis of the liver with ascites No acute events overnight. She was seen on rounds this morning alongside bedside RN, Pam. She is alert and oriented x 2. She has not been able to take her lactulose as we are waiting on [employer] clearance. Review of Systems is unable to be obtained Physical Examination - Vital Signs Temperature: 96.9 F Blood Pressure: 113/75 Pulse: 75 Respirations: 24 Pulse Ox (%): 99 - Physical Exam General: Alert, In no apparent distress, Oriented x2 HEENT: Atraumatic, Mucous membr. 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 Upon presentation here, her SpO2 was 70 % on room air. Currently, she is on mechanical ventilation, with SpO2 readings in the lower 90s. - Evaluation thus far: - Procalcitonin = 0.18 - Troponin = 6.2 - EKG = no STEMI criteria, QTc interval = 539 msec - ABG = pH 7.54, PCO2 35.7, PO2 62.9 - Chest x-ray = "bilateral pulmonary opacities probably pneumonia. They should be followed until it has cleared to help exclude a post obstructive process/underlying mass." - CT chest angiogram = "negative for a pulmonary embolism. Moderate bilateral lung opacities probably pneumonia." - Management plan: - Consulted Pulmonary Medicine and spoke with Dr. Shay - recommendations appreciated - Consulted Respiratory Therapy - Supplemental oxygen to maintain SpO2 > 92% - Completed course of ceftriaxone + levofloxacin - PRN benzonatate, guaifenesin - Encouraged incentive spirometry # Severe Sepsis likely secondary to Community-Acquired Pneumonia (resolved) She meets sepsis criteria based on RR > 20 breaths/min and WBC > 12,000, and the suspected source is pneumonia. Severe sepsis is suspected due to concern for tissue hypoperfusion/organ dysfunction based on acute respiratory failure requiring intubation and lactic acid > 2 mmol/L. - Sepsis order set was initiated - Initial Lactate was 3.3 -> 3.6 -> 2.9 -> 3.2 -> 2.1, trend - Blood cultures drawn before antibiotics were given - Broad spectrum antibiotics started: Ceftriaxone + Levofloxacin - In regards to fluids: - 30 mL/kg of IV fluids was not administered given SBP > 90, MAP > 65, lactic acid < 4 # Tobacco Use Disorder - Tobacco cessation counseling provided - Nicotine patch ordered # Hypertension - Hold home acebutolol, hydrochlorothiazide # Hypothyroidism - Continue home levothyroxine # Hyperlipidemia - Continue home simvastatin # Depression with Anxiety - Continue home paroxetine, PRN alprazolam # Gastroesophageal Reflux Disease - Continue home PRN omeprazole # Morbid Obesity - BMI 42.1 kg/m2 - Lifestyle modifications - Follow-up with PCP Obey Mclaughlin M.D.
--- NOTE | 2022-06-04 13:44 | RAD REPORT ---
EXAM DESCRIPTION: CT - Head Brain Wo Cont - 06/04/2022 1:33 pm CLINICAL HISTORY: Alteration of awareness/confusion COMPARISON: None TECHNIQUE: Computed axial tomography of the head was obtained. IV contrast was not requested. All CT scans are performed using dose optimization technique as appropriate and may include automated exposure control or mA/KV adjustment according to patient size. FINDINGS: An intracranial bleed is not seen . The ventricles are normal in caliber. No extra-axial fluid collection is noted. No significant hyperdensity within the brain is seen Fluid within the sinuses/ mastoids is not seen. IMPRESSION: No acute intracranial abnormality is seen. If patient's symptoms persist MRI of the bra in would be recommended.
--- NOTE | 2022-06-04 20:02 | RAD REPORT ---
EXAM DESCRIPTION: RAD - Abdomen 1 View (KUB) - 06/04/2022 7:55 pm CLINICAL HISTORY: Device placement Dobhoff tube placement FINDINGS: The tip of a Dobhoff tube lies within the distal stomach.
[2022-06-04] MEDS ORDERED: KCL 20 MEQ/100 mL IVPB 20 MEQ/100 ML BAG IV SCH (21:00)
[2022-06-05] MEDS: D5W 1,000 ML IV SCH (04:00)
[2022-06-05 05:47] LABS: Absolute Lymphocytes (CBC) 1.5 K/uL (0.7-4.9); Hematocrit 30.2 % (36.0-45.0); Lymphocytes % 18.5 % (15.3-44.8); MCV 86.8 fL (80-100); MPV 9.7 fL (7.6-11.3); RBC Red Blood Cell Count 3.47 M/uL (3.86-4.86)
[2022-06-05 05:52] VITALS: BMI 39.7
[2022-06-05 05:53] LABS: Magnesium 2.3 mg/dL (1.8-2.4); Potassium 3.6 mmol/L (3.5-5.1)
[2022-06-05] MEDS: INSULIN -REGULAR HUMAN 50 UNIT/0.5 ML ML SQ SCH ×5 (06:00→19:45)
[2022-06-05] MEDS ORDERED: KCL 20 MEQ/100 mL IVPB 20 MEQ/100 ML BAG IV SCH (06:00)
[2022-06-05] MEDS: LEVOTHYROXINE SOD 0.1 MG TAB PO SCH (06:30)
[2022-06-05] MEDS: ENOXAPARIN 40 MG/0.4 ML SQ SCH (08:14)
[2022-06-05] MEDS: THIAMINE 200 MG/2 ML INJ IVP SCH ×2 (08:15→20:21)
[2022-06-05] MEDS: LACTULOSE 20 GM/30 ML UCUP PO SCH ×3 (08:15→20:21)
--- NOTE | 2022-06-05 09:20 | RAD REPORT ---
EXAM DESCRIPTION: RAD - Barium Swallow Modified - 06/05/2022 9:14 am CLINICAL HISTORY: Extubation/rule out aspiration FINDINGS: LARYNGEAL PENETRATION: NOT CLEARED WITH THIN ASPIRATION NO COUGH WITH THIN ORAL RESIDUE , SWALLOW DELAY, INCOMPLETE EPIGLOTTIC INVERSION FL TIME 1:45 16 fluoroscopic spot images obtained
--- NOTE | 2022-06-05 16:24 | P.PN ---
Subjective Date of Service: 06/05/22 Primary Care Provider: Dr. Butt Chief Complaint: Altered mental status presumed cirrhosis of the liver with ascites No acute events overnight. Her mental status has improved significantly. She is now alert and oriented x 4 to person, place, time, and situation. She passed her swallow study and a diet will be started. NG tube to be removed. Okay to downgrade to Med/Surg. Review of Systems 10-point ROS is otherwise unremarkable Gastrointestinal: Distention Physical Examination - Vital Signs Temperature: 97.6 F Blood Pressure: 135/71 Pulse: 84 Respirations: 18 Pulse Ox (%): 95 Assessment And Plan - Plan - Physical Exam General: Alert, In no apparent distress, Oriented x4 HEENT: Atraumatic, Mucous membr. 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 (MELD 13) - improved # Suspect Right-Sided Portal Colopathy - Consult Gastroenterology - recommendations appreciated - Ammonia: - 79 -> 98 - S/P Paracentesis - without evidence of SBP - Urinalysis = pending - CT head = "No acute intracranial abnormality is seen." - Continue thiamine - Monitor for signs of alcohol withdrawal syndrome - Continue lactulose - She is having persistent ascites, will started furosemide + spironolactone # Suspect Critical Care Myopathy - Consult PT/OT - may require SNF vs acute rehab # Acute Hypoxemic Respiratory Failure - likely secondary to Community-Acquired Pneumonia and suspect Acute Respiratory Distress Syndrome (improved) # Prolonged QTc Interval - Evaluation thus far: - Procalcitonin = 0.18 - Troponin = 6.2 - EKG = no STEMI criteria, QTc interval = 539 msec - ABG = pH 7.54, PCO2 35.7, PO2 62.9 - Chest x-ray = "bilateral pulmonary opacities probably pneumonia. They should be followed until it has cleared to help exclude a post obstructive process/underlying mass." - CT chest angiogram = "negative for a pulmonary embolism. Moderate bilateral lung opacities probably pneumonia." - Management plan: - Consulted Pulmonary Medicine and spoke with Dr. Shay - recommendations appreciated - Consulted Respiratory Therapy - Supplemental oxygen to maintain SpO2 > 92% - Completed course of ceftriaxone + levofloxacin - PRN benzonatate, guaifenesin - Encouraged incentive spirometry # Severe Sepsis likely secondary to Community-Acquired Pneumonia (resolved) She meets sepsis criteria based on RR > 20 breaths/min and WBC > 12,000, and the suspected source is pneumonia. Severe sepsis is suspected due to concern for tissue hypoperfusion/organ dysfunction based on acute respiratory failure requiring intubation and lactic acid > 2 mmol/L. - Sepsis order set was initiated - Initial Lactate was 3.3 -> 3.6 -> 2.9 -> 3.2 -> 2.1 - Blood cultures drawn before antibiotics were given - Broad spectrum antibiotics started: Ceftriaxone + Levofloxacin - In regards to fluids: - 30 mL/kg of IV fluids was not administered given SBP > 90, MAP > 65, lactic acid < 4 # Tobacco Use Disorder - Tobacco cessation counseling provided - Nicotine patch ordered # Hypertension - Hold home acebutolol, hydrochlorothiazide # Hypothyroidism - Continue home levothyroxine # Hyperlipidemia - Continue home simvastatin # Depression with Anxiety - Continue home paroxetine, PRN alprazolam # Gastroesophageal Reflux Disease - Continue home PRN omeprazole # Morbid Obesity - BMI 42.1 kg/m2 - Lifestyle modifications - Follow-up with PCP Obey Mclaughlin M.D.
[2022-06-05] MEDS: FUROSEMIDE 40 MG TABLET PO SCH (16:55)
[2022-06-05] MEDS ORDERED: SPIRONOLACTONE 25 MG TABLET PO SCH (17:00)
[2022-06-05] MEDS ORDERED: ALPRAZOLAM 0.25 MG TABLET PO ONE (22:35)
[2022-06-06 04:45] LABS: Magnesium 2.3 mg/dL (1.8-2.4); Potassium 3.3 mmol/L (3.5-5.1)
[2022-06-06] MEDS: LEVOTHYROXINE SOD 0.1 MG TAB PO SCH (05:16)
[2022-06-06] MEDS: KCL 20 MEQ/100 mL IVPB 20 MEQ/100 ML BAG IV SCH ×2 (05:16→07:00)
[2022-06-06] MEDS: INSULIN -REGULAR HUMAN 50 UNIT/0.5 ML ML SQ SCH ×4 (07:30→19:51)
[2022-06-06] MEDS: FUROSEMIDE 40 MG TABLET PO SCH (08:26)
[2022-06-06] MEDS: ENOXAPARIN 40 MG/0.4 ML SQ SCH (08:26)
[2022-06-06] MEDS: THIAMINE 200 MG/2 ML INJ IVP SCH ×2 (08:26→20:42)
[2022-06-06] MEDS: LACTULOSE 20 GM/30 ML UCUP PO SCH ×3 (08:26→20:42)
[2022-06-06] MEDS ORDERED: SPIRONOLACTONE 25 MG TABLET PO SCH (09:00)
[2022-06-06] MEDS ORDERED: ALBUMIN HUMAN 25% 100 ML IV ONE (13:55)
[2022-06-06] MEDS ORDERED: ALBUMIN HUMAN 25% 200 ML IV ONE (13:56)
[2022-06-06] MEDS ORDERED: SPIRONOLACTONE 25 MG TABLET PO ONE (14:00)
[2022-06-06] MEDS ORDERED: LIDOCAINE 1% MPF 30 ML VIAL SQ ONE (15:00)
--- NOTE | 2022-06-06 15:49 | P.PN ---
Subjective Date of Service: 06/06/22 Primary Care Provider: Dr. Butt Chief Complaint: Altered mental status presumed cirrhosis of the liver with ascites No acute events overnight. She reports that she feels well, but continues to have significant abdominal distention. I offered her a therapuetic paracentesis, but she has denied this. She would like to see how much the furosemide and spironolactone are helping her. Review of Systems 10-point ROS is otherwise unremarkable Gastrointestinal: Abdominal Pain (minimal), Distention Physical Examination - Vital Signs Temperature: 97.7 F Blood Pressure: 134/75 Pulse: 90 Respirations: 19 Pulse Ox (%): 98 Assessment And Plan - Plan - Physical Exam General: Alert, In no apparent distress, Oriented x4 HEENT: Atraumatic, Mucous membr. 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 Vogel - recommendations appreciated - Ammonia: - 79 -> 98 - S/P Diagnostic Paracentesis - without evidence of SBP - Offered therapuetic paracentesis, but she has declined - Urinalysis = pending - CT head = "No acute intracranial abnormality is seen." - Continue thiamine - Monitor for signs of alcohol withdrawal syndrome - Continue lactulose - Continue furosemide + spironolactone # Suspect Critical Care Myopathy - Consult PT/OT - may require SNF vs acute rehab # Acute Hypoxemic Respiratory Failure - likely secondary to Community-Acquired Pneumonia and suspect Acute Respiratory Distress Syndrome (improved) # Prolonged QTc Interval - Evaluation thus far: - Procalcitonin = 0.18 - Troponin = 6.2 - EKG = no STEMI criteria, QTc interval = 539 msec - ABG = pH 7.54, PCO2 35.7, PO2 62.9 - Chest x-ray = "bilateral pulmonary opacities probably pneumonia. They should be followed until it has cleared to help exclude a post obstructive process/underlying mass." - CT chest angiogram = "negative for a pulmonary embolism. Moderate bilateral lung opacities probably pneumonia." - Management plan: - Consulted Pulmonary Medicine and spoke with Dr. Shay - recommendations appreciated - Consulted Respiratory Therapy - Supplemental oxygen to maintain SpO2 > 92% - Completed course of ceftriaxone + levofloxacin - PRN benzonatate, guaifenesin - Encouraged incentive spirometry # Severe Sepsis likely secondary to Community-Acquired Pneumonia (resolved) She meets sepsis criteria based on RR > 20 breaths/min and WBC > 12,000, and the suspected source is pneumonia. Severe sepsis is suspected due to concern for tissue hypoperfusion/organ dysfunction based on acute respiratory failure requiring intubation and lactic acid > 2 mmol/L. - Sepsis order set was initiated - Initial Lactate was 3.3 -> 3.6 -> 2.9 -> 3.2 -> 2.1 - Blood cultures drawn before antibiotics were given - Broad spectrum antibiotics started: Ceftriaxone + Levofloxacin - In regards to fluids: - 30 mL/kg of IV fluids was not administered given SBP > 90, MAP > 65, lactic acid < 4 # Tobacco Use Disorder - Tobacco cessation counseling provided - Nicotine patch ordered # Hypertension - Hold home acebutolol, hydrochlorothiazide # Hypothyroidism - Continue home levothyroxine # Hyperlipidemia - Continue home simvastatin # Depression with Anxiety - Continue home paroxetine, PRN alprazolam # Gastroesophageal Reflux Disease - Continue home PRN omeprazole # Morbid Obesity - BMI 42.1 kg/m2 - Lifestyle modifications - Follow-up with PCP Obey Mclaughlin M.D.
[2022-06-06] MEDS ORDERED: KCL 20 MEQ/100 mL IVPB 20 MEQ/100 ML BAG IV SCH (17:00)
[2022-06-06 20:17] LABS: GLUCOSE, PERITONEAL FLUID 118 mg/dL; LD, PERITONEAL FLUID 36 U/L (<63); TOTAL PROTEIN,PERITONEAL FLUID <3.0 g/dL
[2022-06-06] MEDS: SPIRONOLACTONE 25 MG TABLET PO SCH (20:42)
[2022-06-06] MEDS ORDERED: ALPRAZOLAM 0.25 MG TABLET PO ONE (21:24)
[2022-06-07 05:03] LABS: Potassium 3.5 mmol/L (3.5-5.1)
[2022-06-07] MEDS: LEVOTHYROXINE SOD 0.1 MG TAB PO SCH (05:12)
[2022-06-07] MEDS ORDERED: KCL 20 MEQ/100 mL IVPB 20 MEQ/100 ML BAG IV SCH (06:00)
[2022-06-07] MEDS: INSULIN -REGULAR HUMAN 50 UNIT/0.5 ML ML SQ SCH ×4 (07:30→21:00)
[2022-06-07] MEDS: THIAMINE 200 MG/2 ML INJ IVP SCH ×2 (08:33→20:46)
[2022-06-07] MEDS: LACTULOSE 20 GM/30 ML UCUP PO SCH ×3 (08:34→20:46)
[2022-06-07] MEDS: SPIRONOLACTONE 25 MG TABLET PO SCH ×2 (08:34→20:46)
[2022-06-07] MEDS: FUROSEMIDE 40 MG TABLET PO SCH (08:34)
[2022-06-07] MEDS ORDERED: ALBUMIN HUMAN 25% 200 ML IV ONE (16:00)
--- NOTE | 2022-06-07 16:19 | P.PN ---
Subjective Date of Service: 06/07/22 Primary Care Provider: Dr. Butt Chief Complaint: Altered mental status presumed cirrhosis of the liver with ascites No acute events overnight. She reports persistent abdominal distention. Yesterday, she changed her mind on the paracentesis. I was planning on bedside paracentesis; however, ultimately deferred until today, given her thrombocytopenia and having received enoxaparin yesterday morning. Plan for IR- guided paracentesis today. Review of Systems 10-point ROS is otherwise unremarkable Gastrointestinal: Distention Physical Examination - Vital Signs Temperature: 97.3 F Blood Pressure: 126/62 Pulse: 77 Respirations: 20 Pulse Ox (%): 97 Assessment And Plan - Plan - Physical Exam General: Alert, In no apparent distress, Oriented x4 HEENT: Atraumatic, Mucous membr. 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 (MELD 13) - improved # Suspect Right-Sided Portal Colopathy - Consult Gastroenterology and spoke with Dr. Vogel - recommendations appreciated - Ammonia: - 79 -> 98 - S/P Diagnostic Paracentesis - without evidence of SBP - Plan for therapuetic paracentesis with IR today - Urinalysis = pending - CT head = "No acute intracranial abnormality is seen." - Continue thiamine - Monitor for signs of alcohol withdrawal syndrome - Continue lactulose - Continue furosemide + spironolactone # Suspect Critical Care Myopathy - Consult PT/OT - may require SNF vs acute rehab # Acute Hypoxemic Respiratory Failure - likely secondary to Community-Acquired Pneumonia and suspect Acute Respiratory Distress Syndrome (improved) # Prolonged QTc Interval - Evaluation thus far: - Procalcitonin = 0.18 - Troponin = 6.2 - EKG = no STEMI criteria, QTc interval = 539 msec - ABG = pH 7.54, PCO2 35.7, PO2 62.9 - Chest x-ray = "bilateral pulmonary opacities probably pneumonia. They should be followed until it has cleared to help exclude a post obstructive process/underlying mass." - CT chest angiogram = "negative for a pulmonary embolism. Moderate bilateral lung opacities probably pneumonia." - Management plan: - Consulted Pulmonary Medicine and spoke with Dr. Shay - recommendations appreciated - Consulted Respiratory Therapy - Supplemental oxygen to maintain SpO2 > 92% - Completed course of ceftriaxone + levofloxacin - PRN benzonatate, guaifenesin - Encouraged incentive spirometry # Severe Sepsis likely secondary to Community-Acquired Pneumonia (resolved) She meets sepsis criteria based on RR > 20 breaths/min and WBC > 12,000, and the suspected source is pneumonia. Severe sepsis is suspected due to concern for tissue hypoperfusion/organ dysfunction based on acute respiratory failure requiring intubation and lactic acid > 2 mmol/L. - Sepsis order set was initiated - Initial Lactate was 3.3 -> 3.6 -> 2.9 -> 3.2 -> 2.1 - Blood cultures drawn before antibiotics were given - Broad spectrum antibiotics started: Ceftriaxone + Levofloxacin - In regards to fluids: - 30 mL/kg of IV fluids was not administered given SBP > 90, MAP > 65, lactic acid < 4 # Tobacco Use Disorder - Tobacco cessation counseling provided - Nicotine patch ordered # Hypertension - Hold home acebutolol, hydrochlorothiazide # Hypothyroidism - Continue home levothyroxine # Hyperlipidemia - Continue home simvastatin # Depression with Anxiety - Continue home paroxetine, PRN alprazolam # Gastroesophageal Reflux Disease - Continue home PRN omeprazole # Morbid Obesity - BMI 42.1 kg/m2 - Lifestyle modifications - Follow-up with PCP Obey Mclaughlin M.D.
--- NOTE | 2022-06-07 17:13 | P.PN ---
Subjective Date of Service: 06/07/22 Primary Care Provider: Dr. Butt Chief Complaint: Altered mental status presumed cirrhosis of the liver with ascites Subjective: New changes (Did not get paracentesis today nor yesterday. Tolerating diurectics. Potassium 3.5 on Lasix and Aldactone.) Review of Systems General: Weakness, Malaise Physical Examination - Vital Signs Temperature: 97.3 F Blood Pressure: 126/62 Pulse: 77 Respirations: 20 Pulse Ox (%): 97 - Physical Exam General: Alert, In no apparent distress, Oriented x3, Cooperative HEENT: Atraumatic, Normocephalic, PERRLA, EOMI Neck: Supple Respiratory: Diminished Cardiovascular: Normal pulses Neurological: Normal speech Assessment And Plan - Plan REC: 1) increase Aldactone to 100 mg po bid 2) monitor labs 3) paracentesis [facility]
[2022-06-07] MEDS ORDERED: ALPRAZOLAM 0.5 MG TABLET PO ONE (23:25)
[2022-06-08 04:54] LABS: Protime INR 1.36
[2022-06-08 04:57] LABS: Absolute Lymphocytes (CBC) 1.6 K/uL (0.7-4.9); Hematocrit 29.9 % (36.0-45.0); MCV 87.7 fL (80-100); MPV 10.1 fL (7.6-11.3); RBC Red Blood Cell Count 3.41 M/uL (3.86-4.86)
[2022-06-08] MEDS: LEVOTHYROXINE SOD 0.1 MG TAB PO SCH (06:25)
[2022-06-08] MEDS: INSULIN -REGULAR HUMAN 50 UNIT/0.5 ML ML SQ SCH ×4 (07:30→21:00)
[2022-06-08 08:50] LABS: Magnesium 2.1 mg/dL (1.6-2.4); Potassium 3.6 mmol/L (3.5-5.1)
[2022-06-08] MEDS: SPIRONOLACTONE 25 MG TABLET PO SCH ×3 (09:00→21:38)
[2022-06-08] MEDS: FUROSEMIDE 40 MG TABLET PO SCH (09:49)
[2022-06-08] MEDS: THIAMINE 200 MG/2 ML INJ IVP SCH ×2 (09:50→21:40)
[2022-06-08] MEDS: LACTULOSE 20 GM/30 ML UCUP PO SCH ×4 (09:50→21:38)
[2022-06-08] MEDS ORDERED: KCL 20 MEQ/100 mL IVPB 20 MEQ/100 ML BAG IV SCH (11:00)
--- NOTE | 2022-06-08 14:08 | P.PN ---
Subjective Date of Service: 06/08/22 Primary Care Provider: Dr. Butt Chief Complaint: Altered mental status presumed cirrhosis of the liver with ascites No acute events overnight. She reports generalized fatigue this morning. Yesterday, she was able to work with PT. It appears paracentesis was not performed yesterday. Unlikely to occur over the weekend. Case management is working on placement. Review of Systems 10-point ROS is otherwise unremarkable General: Weakness (generalized) Gastrointestinal: Distention Physical Examination - Vital Signs Temperature: 97.1 F Blood Pressure: 125/72 Pulse: 83 Respirations: 14 Pulse Ox (%): 95 Assessment And Plan - Plan - Physical Exam General: Alert, In no apparent distress, Oriented x4 HEENT: Atraumatic, Mucous membr. moist/pink, EOMI, Sclerae nonicteric Neck: JVD not distended Respiratory: Clear to auscultation bilaterally, Normal air movement Cardiovascular: Regular rate/rhythm, Normal S1 S2, No gallops, No rubs, No murmurs, Edema (1-2+) Gastrointestinal: Normal bowel sounds, Soft and benign, Distended, No tenderness, No rebound, No guarding, Ascites Musculoskeletal: No clubbing Integumentary: No rashes Neurological: Normal speech, A&Ox4, moving all four extremities equally # Suspect Hepatic Encephalopathy secondary to Alcoholic Cirrhosis (MELD 13) - improved # Suspect Right-Sided Portal Colopathy - Consult Gastroenterology and spoke with Dr. Vogel - recommendations appreciated - Ammonia: - 79 -> 98 - S/P Diagnostic Paracentesis - without evidence of SBP - Plan for therapuetic paracentesis likely Friday - Urinalysis = pending - CT head = "No acute intracranial abnormality is seen." - Continue thiamine - Monitor for signs of alcohol withdrawal syndrome - Continue lactulose - Continue furosemide + spironolactone # Suspect Critical Care Myopathy - Consult PT/OT - may require SNF vs acute rehab - Appreciated CM assistance # Acute Hypoxemic Respiratory Failure - likely secondary to Community-Acquired Pneumonia and suspect Acute Respiratory Distress Syndrome (improved) # Prolonged QTc Interval - Evaluation thus far: - Procalcitonin = 0.18 - Troponin = 6.2 - EKG = no STEMI criteria, QTc interval = 539 msec - ABG = pH 7.54, PCO2 35.7, PO2 62.9 - Chest x-ray = "bilateral pulmonary opacities probably pneumonia. They should be followed until it has cleared to help exclude a post obstructive process/underlying mass." - CT chest angiogram = "negative for a pulmonary embolism. Moderate bilateral lung opacities probably pneumonia." - Management plan: - Consulted Pulmonary Medicine and spoke with Dr. Shay - recommendations appreciated - Consulted Respiratory Therapy - Supplemental oxygen to maintain SpO2 > 92% - Completed course of ceftriaxone + levofloxacin - PRN benzonatate, guaifenesin - Encouraged incentive spirometry # Severe Sepsis likely secondary to Community-Acquired Pneumonia (resolved) She meets sepsis criteria based on RR > 20 breaths/min and WBC > 12,000, and the suspected source is pneumonia. Severe sepsis is suspected due to concern for tissue hypoperfusion/organ dysfunction based on acute respiratory failure requiring intubation and lactic acid > 2 mmol/L. - Sepsis order set was initiated - Initial Lactate was 3.3 -> 3.6 -> 2.9 -> 3.2 -> 2.1 - Blood cultures drawn before antibiotics were given - Broad spectrum antibiotics started: Ceftriaxone + Levofloxacin - In regards to fluids: - 30 mL/kg of IV fluids was not administered given SBP > 90, MAP > 65, lactic acid < 4 # Tobacco Use Disorder - Tobacco cessation counseling provided - Nicotine patch ordered # Hypertension - Hold home acebutolol, hydrochlorothiazide # Hypothyroidism - Continue home levothyroxine # Hyperlipidemia - Continue home simvastatin # Depression with Anxiety - Continue home paroxetine, PRN alprazolam # Gastroesophageal Reflux Disease - Continue home PRN omeprazole # Morbid Obesity - BMI 42.1 kg/m2 - Lifestyle modifications - Follow-up with PCP Obey Mclaughlin M.D.
[2022-06-08] MEDS ORDERED: LIDOCAINE 1% MPF 30 ML VIAL SQ SCH (15:00)
[2022-06-08] MEDS ORDERED: LIDOCAINE 1% MPF 5 ML VIAL SQ SCH (16:00)
--- NOTE | 2022-06-08 22:17 | RAD REPORT ---
EXAM DESCRIPTION: US - Abdomen Exam Limited - 06/08/2022 10:10 pm CLINICAL HISTORY: sob, fluid COMPARISON: <Comparisons> FINDINGS: Limited abdominal ultrasound to assess for ascites. A large volume of ascites present. Mos t of the fluid is present in the right upper and right lower quadrants. IMPRESSION: Large volume of ascites.
[2022-06-08] MEDS ORDERED: ALBUMIN HUMAN 25% 100 ML IV ONE (23:12)
[2022-06-09 04:36] LABS: Protime INR 1.29
[2022-06-09] MEDS: LEVOTHYROXINE SOD 0.1 MG TAB PO SCH (07:00)
[2022-06-09 07:22] LABS: Potassium 3.8 mmol/L (3.5-5.1)
[2022-06-09] MEDS: INSULIN -REGULAR HUMAN 50 UNIT/0.5 ML ML SQ SCH ×4 (07:30→21:00)
[2022-06-09] MEDS ORDERED: ALBUMIN HUMAN 25% 100 ML IV ONE ×3 (08:00→11:00)
[2022-06-09] MEDS: LACTULOSE 20 GM/30 ML UCUP PO SCH ×3 (09:00→22:04)
[2022-06-09] MEDS: POTASSIUM CL SA 10 MEQ TAB PO ONE ×2 (09:00→11:47)
[2022-06-09] MEDS: SPIRONOLACTONE 25 MG TABLET PO SCH ×2 (09:00→22:03)
[2022-06-09] MEDS: FUROSEMIDE 40 MG TABLET PO SCH (11:40)
[2022-06-09] MEDS: THIAMINE 200 MG/2 ML INJ IVP SCH ×2 (11:40→22:03)
--- NOTE | 2022-06-09 11:59 | P.PN ---
Subjective Date of Service: 06/09/22 Primary Care Provider: Dr. Butt Chief Complaint: Altered mental status presumed cirrhosis of the liver with ascites No acute events overnight. She reports that she feels well this morning. Plan for paracentesis today. She denies any acute concerns. Case management is working on placement. Review of Systems 10-point ROS is otherwise unremarkable General: Weakness Physical Examination - Vital Signs Temperature: 97.0 F Blood Pressure: 119/64 Pulse: 73 Respirations: 18 Pulse Ox (%): 95 Assessment And Plan - Plan - Physical Exam General: Alert, In no apparent distress, Oriented x4 HEENT: Atraumatic, Mucous membr. moist/pink, EOMI, Sclerae nonicteric Neck: JVD not distended Respiratory: Clear to auscultation bilaterally, Normal air movement Cardiovascular: Regular rate/rhythm, Normal S1 S2, No gallops, No rubs, No murmurs, Edema (1-2+) Gastrointestinal: Normal bowel sounds, Soft and benign, Distended, No tenderness, No rebound, No guarding, Ascites Musculoskeletal: No clubbing Integumentary: No rashes Neurological: Normal speech, A&Ox4, moving all four extremities equally # Suspect Hepatic Encephalopathy secondary to Alcoholic Cirrhosis (MELD 13) - resolved # Suspect Right-Sided Portal Colopathy - Consult Gastroenterology and spoke with Dr. Vogel - recommendations appreciated - Ammonia: - 79 -> 98 - S/P Diagnostic Paracentesis - without evidence of SBP - Plan for therapuetic paracentesis today - Urinalysis = pending - CT head = "No acute intracranial abnormality is seen." - Continue thiamine - Monitor for signs of alcohol withdrawal syndrome - Continue lactulose - Continue furosemide + spironolactone # Suspect Critical Care Myopathy - Consult PT/OT - may require SNF vs acute rehab - Appreciated CM assistance # Acute Hypoxemic Respiratory Failure - likely secondary to Community-Acquired Pneumonia and suspect Acute Respiratory Distress Syndrome (improved) # Prolonged QTc Interval - Evaluation thus far: - Procalcitonin = 0.18 - Troponin = 6.2 - EKG = no STEMI criteria, QTc interval = 539 msec - ABG = pH 7.54, PCO2 35.7, PO2 62.9 - Chest x-ray = "bilateral pulmonary opacities probably pneumonia. They should be followed until it has cleared to help exclude a post obstructive process/underlying mass." - CT chest angiogram = "negative for a pulmonary embolism. Moderate bilateral lung opacities probably pneumonia." - Management plan: - Consulted Pulmonary Medicine and spoke with Dr. Shay - recommendations appreciated - Consulted Respiratory Therapy - Supplemental oxygen to maintain SpO2 > 92% - Completed course of ceftriaxone + levofloxacin - PRN benzonatate, guaifenesin - Encouraged incentive spirometry # Severe Sepsis likely secondary to Community-Acquired Pneumonia (resolved) She meets sepsis criteria based on RR > 20 breaths/min and WBC > 12,000, and the suspected source is pneumonia. Severe sepsis is suspected due to concern for tissue hypoperfusion/organ dysfunction based on acute respiratory failure requiring intubation and lactic acid > 2 mmol/L. - Sepsis order set was initiated - Initial Lactate was 3.3 -> 3.6 -> 2.9 -> 3.2 -> 2.1 - Blood cultures drawn before antibiotics were given - Broad spectrum antibiotics started: Ceftriaxone + Levofloxacin - In regards to fluids: - 30 mL/kg of IV fluids was not administered given SBP > 90, MAP > 65, lactic acid < 4 # Tobacco Use Disorder - Tobacco cessation counseling provided - Nicotine patch ordered # Hypertension - Hold home acebutolol, hydrochlorothiazide # Hypothyroidism - Continue home levothyroxine # Hyperlipidemia - Continue home simvastatin # Depression with Anxiety - Continue home paroxetine, PRN alprazolam # Gastroesophageal Reflux Disease - Continue home PRN omeprazole # Morbid Obesity - BMI 42.1 kg/m2 - Lifestyle modifications - Follow-up with PCP Medically stable to be discharged to acute rehab vs SNF. Appreciate CM assistance. Unlikely to be discharged over the weekend. Obey Mclaughlin M.D.
--- NOTE | 2022-06-09 12:06 | RAD REPORT ---
EXAM DESCRIPTION: US - Paracentesis Proc Guidance - 06/09/2022 10:36 am CLINICAL HISTORY: therapuetic Ascites COMPARISON: <Comparisons> FINDINGS: Informed consent was obtained and time-out was performed. Patient's abdomen was prepped and draped in the usual sterile fashion. 1% lidocaine was used for loca l anesthetic purposes. A small skin incision was made. A paracentesis catheter was guided into the peroneal cavity under son ographic guidance. A small amount of fluid was sent for requested lab studies. A large volume paracentesis was performed . The patient tolerated the procedure well. Patient was administered IV albumin per protocol following the procedure. IMPRESSION: Successful ultrasound-guided paracentesis.
[2022-06-09] MEDS ORDERED: ALPRAZOLAM 1 MG TABLET PO ONE (21:58)
[2022-06-09] MEDS: Rifaximin 550 MG Tab PO SCH (22:03)
--- NOTE | 2022-06-10 00:14 | P.PN ---
Subjective Date of Service: 06/10/22 Primary Care Provider: Dr. Butt Chief Complaint: Altered mental status presumed cirrhosis of the liver with ascites Subjective: New changes (Mental status improved. Alert and oriented X3 now. Still with ascites and abdominal bloating on Lactulose therapy.) Physical Examination - Vital Signs Temperature: 97.7 F Blood Pressure: 133/66 Pulse: 73 Respirations: 19 Pulse Ox (%): 97 Assessment And Plan - Plan REC: 1) increase Aldactone to 100 mg po bid 2) monitor labs 3) paracentesis [facility]
--- NOTE | 2022-06-10 00:17 | P.PN ---
Subjective Date of Service: 06/09/22 Primary Care Provider: Dr. Butt Chief Complaint: Altered mental status presumed cirrhosis of the liver with ascites Subjective: Improving (S/p paracentesis today. Decreased SOB, feels better, still with some bloating and chronic back pain - wants pain meds.) Physical Examination - Vital Signs Temperature: 97.7 F Blood Pressure: 133/66 Pulse: 73 Respirations: 19 Pulse Ox (%): 97 Assessment And Plan - Plan REC: 1) continue Lasix 40 mg po qd and Aldactone 100 mg po bid 2) monitor labs 3) Miralax, and decrease Lactulose due to excessive bloating 4) start Xifaxan 550 mg po bid
[2022-06-10] MEDS: LEVOTHYROXINE SOD 0.1 MG TAB PO SCH (06:00)
[2022-06-10] MEDS: INSULIN -REGULAR HUMAN 50 UNIT/0.5 ML ML SQ SCH ×4 (07:30→21:00)
[2022-06-10] MEDS: THIAMINE 200 MG/2 ML INJ IVP SCH ×2 (09:12→22:00)
[2022-06-10] MEDS: POLYETHYL GLY 3350 17 GM/DOSE PO SCH (09:12)
[2022-06-10] MEDS: Rifaximin 550 MG Tab PO SCH ×2 (09:12→22:02)
[2022-06-10] MEDS: FUROSEMIDE 40 MG TABLET PO SCH (09:12)
[2022-06-10] MEDS: LACTULOSE 20 GM/30 ML UCUP PO SCH ×3 (09:12→22:00)
[2022-06-10] MEDS: SPIRONOLACTONE 25 MG TABLET PO SCH ×2 (09:12→21:59)
--- NOTE | 2022-06-10 13:34 | P.PN ---
Date of Service: 06/10/22 Subjective Patient is much more awake and alert. Plan is to start doing some physical therapy. We need to try to get patient to become more aggressive with physical therapy. May need to arrange for inpatient rehab. Physical Examination - Vital Signs Reviewed - Physical Exam General: awakens and responds to commands. Respiratory: Clear bilaterally Cardiovascular: RRR; no murmur Gastrointestinal: Abdomen is distended; nontender; bowel sounds positive Neurological: No focal deficits; generalized weakness Assessment And Plan - Assessment # Acute Hypoxemic Respiratory Failure - likely secondary to Community-Acquired Pneumonia and suspect Acute Respiratory Distress Syndrome # Prolonged QTc Interval # Severe Sepsis likely secondary to Community-Acquired Pneumonia # Alcohol Use Disorder # Severe Hypokalemia # Tobacco Use Disorder # Hypertension # Hypothyroidism # Hyperlipidemia # Depression with Anxiety # Gastroesophageal Reflux Disease # Morbid Obesity - BMI 42.1 kg/m2 # Cirrhosis # Hepatic encephalopathy Continue with plan of care as mentioned below: 1. We need to increase physical therapy. May need to arrange for inpatient rehab or longterm facility placement. 2. Continue with medication for cirrhosis 3. Strict blood pressure control. 4. Out of bed and ambulate into a chair 5. Heplock IV; 6. Monitor labs 7. Strict blood pressure and blood sugar control 8. Nicotine patch 9. Counseled regarding alcohol cessation 10. GI and DVT prophylaxis
[2022-06-11] MEDS: LEVOTHYROXINE SOD 0.1 MG TAB PO SCH (05:30)
[2022-06-11 06:03] LABS: Potassium 3.5 mmol/L (3.5-5.1)
[2022-06-11] MEDS: INSULIN -REGULAR HUMAN 50 UNIT/0.5 ML ML SQ SCH ×4 (07:30→21:00)
[2022-06-11] MEDS: LACTULOSE 20 GM/30 ML UCUP PO SCH ×4 (08:35→21:00)
[2022-06-11] MEDS: POLYETHYL GLY 3350 17 GM/DOSE PO SCH (08:35)
[2022-06-11] MEDS: FUROSEMIDE 40 MG TABLET PO SCH (08:35)
[2022-06-11] MEDS: Rifaximin 550 MG Tab PO SCH ×2 (08:36→22:27)
[2022-06-11] MEDS: THIAMINE 200 MG/2 ML INJ IVP SCH ×2 (08:36→22:27)
[2022-06-11] MEDS: SPIRONOLACTONE 25 MG TABLET PO SCH ×2 (08:36→22:25)
[2022-06-11] MEDS ORDERED: POTASSIUM CL SA 10 MEQ TAB PO ONE (09:00)
--- NOTE | 2022-06-11 18:51 | P.PN ---
Subjective Date of Service: 06/11/22 Primary Care Provider: Dr. Butt Chief Complaint: Altered mental status presumed cirrhosis of the liver with ascites Subjective: Improving (Feels much better. No SOB at rest now. Sitting at bedside, talking - laughing. Remembers ordered medications from yesterday. +stools on Lactulose. Patient and family note edema in UEs and LEs much better on diurectics, still with obese abdomen but reports drinking alcohol late into the night qd), Other (She has now quit alcohol and expects to lose some of her belly fat. She is s/p 2 paracenteses on this hospital admission - both ~ 4 liters removed with negative studies.) Review of Systems 10-point ROS is otherwise unremarkable General: Weakness (Improved.), Malaise (Improved.) Physical Examination - Vital Signs Temperature: 97.2 F Blood Pressure: 141/81 Pulse: 102 Respirations: 20 Pulse Ox (%): 96 - Physical Exam General: Alert, In no apparent distress, Oriented x3, Cooperative HEENT: Atraumatic, Normocephalic, PERRLA, EOMI Neck: Supple Respiratory: Normal air movement Cardiovascular: Normal pulses Gastrointestinal: Soft and benign, No tenderness, No rebound, No guarding, Other (obese) Neurological: Normal speech, Normal strength at 5/5 x4 extr Assessment And Plan - Current Problems (Diagnosis) (1) Alcoholic cirrhosis Current Visit: Yes Status: Acute (2) Ascites Current Visit: Yes Status: Acute (3) Hepatic encephalopathy Current Visit: Yes Status: Acute (4) Alcoholism Current Visit: Yes Status: Acute (5) Respiratory failure with hypoxia Current Visit: Yes Status: Acute Qualifiers: Chronicity: acute Qualified Code(s): J96.01 - Acute respiratory failure with hypoxia - Plan REC: 1) continue Lasix 40 mg po qd and increase Aldactone from 100 mg to 150 mg po bid 2) monitor labs 3) continue Lactulose and Xifaxan 550 mg po bid
[2022-06-12] MEDS ORDERED: ALPRAZOLAM 0.5 MG TABLET PO PRN (00:25)
[2022-06-12] MEDS: LEVOTHYROXINE SOD 0.1 MG TAB PO SCH (05:35)
[2022-06-12 05:56] LABS: Hematocrit 31.4 % (36.0-45.0); Lymphocytes % 33.7 % (15.3-44.8); MCV 87.8 fL (80-100); MPV 9.1 fL (7.6-11.3); RBC Red Blood Cell Count 3.57 M/uL (3.86-4.86)
[2022-06-12 06:05] LABS: Protime INR 1.54
[2022-06-12 06:19] LABS: Albumin 2.9 g/dL (3.4-5.0); Bilirubin Total 1.6 mg/dL (0.2-1.0); Magnesium 1.9 mg/dL (1.6-2.4); Phosphorus 3.6 mg/dL (2.5-4.9); Potassium 3.3 mmol/L (3.5-5.1); Protein, Total 7.3 g/dL (6.4-8.2)
[2022-06-12] MEDS: INSULIN -REGULAR HUMAN 50 UNIT/0.5 ML ML SQ SCH ×4 (07:30→21:00)
[2022-06-12 08:23] LABS: Blood Morphology Comment NOTED (NOT SEEN); Platelet Estimate DECR; White Blood Cell Scan OK (OK)
[2022-06-12 08:24] LABS: Anisocytosis 2+; Hypochromasia 1+; Poikilocytosis SLIGHT; Polychromasia SLIGHT
[2022-06-12] MEDS: POLYETHYL GLY 3350 17 GM/DOSE PO SCH (09:00)
[2022-06-12] MEDS: LACTULOSE 20 GM/30 ML UCUP PO SCH ×2 (09:00→13:32)
[2022-06-12] MEDS ORDERED: POTASSIUM CL SA 10 MEQ TAB PO ONE ×2 (09:00→21:00)
[2022-06-12] MEDS: Rifaximin 550 MG Tab PO SCH ×2 (10:46→21:13)
[2022-06-12] MEDS: SPIRONOLACTONE 25 MG TABLET PO SCH ×2 (10:47→21:12)
[2022-06-12] MEDS: FUROSEMIDE 40 MG TABLET PO SCH (10:47)
[2022-06-12] MEDS: THIAMINE 200 MG/2 ML INJ IVP SCH ×3 (10:48→21:14)
--- NOTE | 2022-06-12 12:59 | P.PN ---
Subjective Date of Service: 06/12/22 Primary Care Provider: Dr. Butt Chief Complaint: Altered mental status, cirrhosis of the liver with ascites Subjective: Improving (Good memory. Sitting in chair, has been ambulating in hallway. Very jovial and talkative. Tolerating diet well.) Review of Systems Unremarkable Physical Examination - Vital Signs Temperature: 96.7 F Blood Pressure: 133/69 Pulse: 89 Respirations: 18 Pulse Ox (%): 95 - Physical Exam General: Alert, In no apparent distress, Oriented x3, Cooperative HEENT: Atraumatic, Normocephalic, PERRLA, EOMI Neck: Supple Respiratory: Normal air movement Cardiovascular: Normal pulses, Regular rate/rhythm Gastrointestinal: Soft and benign, No tenderness, No rebound, No guarding Neurological: Normal speech, Normal strength at 5/5 x4 extr Assessment And Plan - Current Problems (Diagnosis) (1) Alcoholic cirrhosis Current Visit: Yes Status: Acute (2) Ascites Current Visit: Yes Status: Acute (3) Hepatic encephalopathy Current Visit: Yes Status: Acute (4) Alcoholism Current Visit: Yes Status: Acute (5) Respiratory failure with hypoxia Current Visit: Yes Status: Acute Qualifiers: Chronicity: acute Qualified Code(s): J96.01 - Acute respiratory failure with hypoxia - Plan REC: 1) continue Lasix 40 mg po qd and Aldactone 150 mg po bid 2) monitor labs 3) continue Lactulose and Xifaxan 550 mg po bid
[2022-06-13 05:34] LABS: Potassium 3.9 mmol/L (3.5-5.1)
[2022-06-13] MEDS ORDERED: POTASSIUM CL SA 10 MEQ TAB PO ONE (06:00)
[2022-06-13] MEDS: LEVOTHYROXINE SOD 0.1 MG TAB PO SCH (06:17)
[2022-06-13] MEDS: INSULIN -REGULAR HUMAN 50 UNIT/0.5 ML ML SQ SCH (07:30)
[2022-06-13] MEDS: POLYETHYL GLY 3350 17 GM/DOSE PO SCH (07:31)
[2022-06-13 08:24] LABS: SARS-COV-2 RT PCR NEGATIVE (NEGATIVE)
[2022-06-13 08:52] VITALS: BP 127/64; TEMP 97.1
[2022-06-13] MEDS: Rifaximin 550 MG Tab PO SCH (08:59)
[2022-06-13] MEDS: FUROSEMIDE 40 MG TABLET PO SCH (08:59)
[2022-06-13] MEDS: THIAMINE 200 MG/2 ML INJ IVP SCH (08:59)
[2022-06-13] MEDS ORDERED: LACTULOSE 20 GM/30 ML UCUP PO SCH (09:00)
[2022-06-13] MEDS: SPIRONOLACTONE 25 MG TABLET PO SCH (09:34)
[2022-06-13 10:30] VITALS: O2SAT 93
--- NOTE | 2022-06-15 15:41 | P.PN ---
Subjective Date of Service: 06/15/22 Primary Care Provider: Dr. Butt Chief Complaint: Altered mental status, cirrhosis of the liver with ascites Subjective: New changes (Moved to 5th floor rehab. Aldactone was reduce but admitted due to large ascites / cirrhosis with hepatic encephalopathy. On toliet) Review of Systems Unremarkable Physical Examination - Vital Signs Temperature: 97.1 F Blood Pressure: 127/64 Pulse: 94 Respirations: 16 Pulse Ox (%): 94 - Physical Exam General: Alert, In no apparent distress, Oriented x3, Cooperative HEENT: Atraumatic, Normocephalic, PERRLA, EOMI Neck: Supple Respiratory: Normal air movement Neurological: Normal speech Assessment And Plan - Current Problems (Diagnosis) (1) Alcoholic cirrhosis Status: Acute (2) Ascites Status: Acute (3) Hepatic encephalopathy Status: Acute (4) Alcoholism Status: Acute (5) Respiratory failure with hypoxia Status: Acute Qualifiers: Chronicity: acute Qualified Code(s): J96.01 - Acute respiratory failure with hypoxia - Plan REC: 1) continue Lasix 40 mg po qd and Aldactone 150 mg po bid (at 8 AM and 1 PM 2) monitor labs 3) continue Lactulose and Xifaxan 550 mg po bid
--- NOTE | 2022-06-16 18:27 | P.PN ---
Subjective Date of Service: 06/16/22 Primary Care Provider: Dr. Butt Chief Complaint: Altered mental status, cirrhosis of the liver with ascites Subjective: Improving (Sitting in chair and feeling well, watching TV. She has been ambulating as well. She is oriented X3 and once again laughing, joking. She reports that she will be going to AA on discharge for ~ 4 weeks and is very positive about it. Likes 2nd Aldactone dose in early afternoon - no late night urin) Review of Systems Unremarkable Physical Examination - Vital Signs Temperature: 97.1 F Blood Pressure: 127/64 Pulse: 94 Respirations: 16 Pulse Ox (%): 94 - Physical Exam General: Alert, In no apparent distress, Oriented x3, Cooperative HEENT: Atraumatic, Normocephalic, PERRLA, EOMI Neck: Supple Respiratory: Normal air movement Gastrointestinal: Soft and benign, No tenderness, No rebound, No guarding Neurological: Normal speech, Normal strength at 5/5 x4 extr Assessment And Plan - Current Problems (Diagnosis) (1) Alcoholic cirrhosis Status: Acute (2) Ascites Status: Acute (3) Hepatic encephalopathy Status: Acute (4) Alcoholism Status: Acute (5) Respiratory failure with hypoxia Status: Acute Qualifiers: Chronicity: acute Qualified Code(s): J96.01 - Acute respiratory failure with hypoxia - Plan REC: 1) continue Lasix 40 mg po qd and Aldactone 150 mg po bid (at 8 AM and 1 PM 2) monitor labs 3) continue Lactulose and Xifaxan 550 mg po bid
== END 2022-06-13 10:40 | DRG 870 ==
LOC: ER 09:26 → ERHOLD 13:51 → 3RD-ICU 05-24 15:36 → 4TH 06-05 15:15
PROVIDERS: ADMIT Internal Medicine; ATTEND Hospitalist
PROC: 5A09457 Assistance with Respiratory Ventilation, 24-96 Consecutive Hours, Continuous Positive Airway Pressure (ICD-10-PCS; principal; 2022-05-23)
PROC: 5A1955Z Respiratory Ventilation, Greater than 96 Consecutive Hours (ICD-10-PCS; 2022-05-23)
PROC: 0BH17EZ Insertion of Endotracheal Airway into Trachea, Via Natural or Artificial Opening (ICD-10-PCS; 2022-05-24)
PROC: 0W9G3ZX Drainage of Peritoneal Cavity, Percutaneous Approach, Diagnostic (ICD-10-PCS; 2022-06-03)
DX: A41.9 Sepsis, unspecified organism (principal); J18.9 Pneumonia, unspecified organism; J96.01 Acute respiratory failure with hypoxia; K72.00 Acute and subacute hepatic failure without coma; G72.81 Critical illness myopathy; E87.0 Hyperosmolality and hypernatremia; J44.1 Chronic obstructive pulmonary disease with (acute) exacerbation; Z68.41 Body mass index [BMI] 40.0-44.9, adult; R65.20 Severe sepsis without septic shock; D69.6 Thrombocytopenia, unspecified; E66.01 Morbid (severe) obesity due to excess calories; K73.0 Chronic persistent hepatitis, not elsewhere classified; E87.6 Hypokalemia; F10.10 Alcohol abuse, uncomplicated; E87.5 Hyperkalemia; E03.9 Hypothyroidism, unspecified; F41.8 Other specified anxiety disorders; K76.82 Hepatic encephalopathy
CPT/HCPCS: 0240U; 36415; 36569; 49083; 51702; 70450; 71045; 71275; 74018; 74177; 74230; 76705; 80048; 80053; 82042; 82140; 82805; 82945; 82947; 83605; 83615; 83735; 83880; 84100; 84132; 84145; 84157; 84484; 85025; 85027; 85610; 85730; 87040; 87070; 89050; 92526; 92611; 93005; 94002; 94003; 94660; 97110; 97116; 97161; 97165; 97530; 99285; J0330; J0456; J1630; J1650; J1815; J1940; J2001; J2250; J2704; J2920; J2930; J3010; J3411; J3480; J7030; J7050; J7512; P9047; Q9967

== ENCOUNTER 2022-06-13 08:11 | Inpatient (IN) | payer BC ==
[2022-06-13 11:01] VITALS: BMI 35.4
--- OUTSIDE RECORDS SUMMARY | 2022-06-13 11:04 | XMS REPORT | Continuity of Care Document ---
:1970 Author Organization [facility] t Address [address] [place] [address] Care Team Providers Name Role Phone Wilber ESCALERA Primary Care Physician Unavailable RADIOLOGY Attending Clinician Unavailable Radiology Attending Clinician Unavailable Doctor Unassigned, [place] Attending Clinician Unavailable KEREN HAWKINS Attending Clinician Unavailable Lab, Adc Fam Pob I Attending Clinician Unavailable Ebrahim DIRECTOR SUPPLYKeren Attending Clinician JOHNNAVENUS Del Toro Admitting Clinician Unavailable Payers Payer Name Policy Type Policy Number Effective Date Expiration Date S [facility] [id number] 2021 00:00:00 Problems Condition Condition Condition Status Onset Resolution Last Treating Co mments Source Name Details Category Date Date Treatment Clinician Date No known No known Disease Unive rs active active ity of problems problems [facility] Allergies, Adverse Reactions, Alerts Allergy Allergy Status Severity Reaction(s) Onset Inactive Treating Comm ents Source Name Type Date Date Clinician NO KNOWN Drug Active Univers ALLERGIE Class ity of S [facility] Social History Social Habit Start Date Stop Date Quantity Comments Source History of tobacco Cigarette Smoker University of use [facility] History SDOH University o f Alcohol Frequency [facility] edical Branch History SDOH University o f Alcohol Std Drinks [facility] History SDOH University o f Alcohol Binge [place] [facility] Exposure to Not sure University of SARS-CoV-2 (event) [facility] Alcohol intake 2016-10-29 2016-10-29 Current drinker Unive rsity of 00:00:00 00:00:00 of alcohol [facility] (finding) Branch Tobacco use and 2016-10-10 2016-10-10 Smokeless tobacco Un iversity of exposure 00:00:00 00:00:00 non-user [facility] Cigarettes smoked 2016-10-10 2016-10-10 Univers ity of current (pack per 00:00:00 00:00:00 [facility] ) - Reported Branch Alcohol Comment 2016-10-10 2016-10-10 Occasional Universit y of 00:00:00 00:00:00 Drinker [facility] Sex Ass[birth year] At [birth year] Universit y of 00:00:00 00:00:00 [facility] Smoking Status Start Date Stop Date Source Smokes tobacco daily 2016-10-10 00:00:00 Univers ity of [facility] Medications Ordered Filled Start Stop Current Ordering Indication Dosage Frequency Signature Comments Components Source Medication Medication Date Date Medication? Clinician (SIG) Name Name acebutolol Yes 200mg Take 200 Un saray (SECTRAL) 5-01 mg by ity of 200 mg 13:39: mouth 2 [place] capsule 03 (two) Medical times [place] daily. amLODIPine Yes 10mg Take 10 mg U nivers (NORVASC) 5-01 by mouth ity of 10 mg 13:39: daily. [address] levothyroxi Yes 25ug Take 25 Uni vers ne 5-01 mcg by ity of (SYNTHROID) 13:39: mouth [place] 25 mcg 03 every Medical tablet morning. Branch simvastatin Yes 40mg Take 40 mg Univers (ZOCOR) 40 5-01 by mouth ity o f mg tablet 13:39: at [place] [address] bedtime. Medical Branch hydroCHLORO Yes 25mg Take 25 mg Univers thiazide 25 5-01 by mouth ity of mg tablet 13:39: daily. [address] paroxetine Yes 20mg Take 20 mg U nivers 20 mg 5-01 by mouth ity of tablet 13:39: daily. [address] acebutolol Yes 200mg Take 200 Un saray (SECTRAL) 5-01 mg by ity of 200 mg 08:39: mouth 2 [place] capsule 03 (two) Medical times [place] daily. amLODIPine Yes 10mg Take 10 mg U nivers (NORVASC) 5-01 by mouth ity of 10 mg 08:39: daily. [place] tablet 03 Medical Branch levothyroxi Yes 25ug Take 25 Uni vers ne 5-01 mcg by ity of (SYNTHROID) 08:39: mouth [place] 25 mcg 03 every Medical tablet morning. Branch simvastatin Yes 40mg Take 40 mg Univers (ZOCOR) 40 5-01 by mouth ity o f mg tablet 08:39: at [place] 03 bedtime. Medical Branch hydroCHLORO Yes 25mg Take 25 mg Univers thiazide 25 5-01 by mouth ity of mg tablet 08:39: daily. [place] [facility] paroxetine Yes 20mg Take 20 mg U nivers 20 mg 5-01 by mouth ity of tablet 08:39: daily. [place] [facility] Branch acebutolol Yes 200mg Take 200 Un saray (SECTRAL) 5-01 mg by ity of 200 mg 08:39: mouth 2 [place] capsule 03 (two) Medical times [place] daily. amLODIPine Yes 10mg Take 10 mg U nivers (NORVASC) 5-01 by mouth ity of 10 mg 08:39: daily. [place] tablet Medical Branch levothyroxi Yes 25ug Take 25 Uni vers ne 5-01 mcg by ity of (SYNTHROID) 08:39: mouth [place] 25 mcg 03 every Medical tablet morning. Branch simvastatin Yes 40mg Take 40 mg Univers (ZOCOR) 40 5-01 by mouth ity o f mg tablet 08:39: at [place] [address] bedtime. Medical Branch hydroCHLORO Yes 25mg Take 25 mg Univers thiazide 25 5-01 by mouth ity of mg tablet 08:39: daily. [place] [facility] paroxetine Yes 20mg Take 20 mg U nivers 20 mg 5-01 by mouth ity of tablet 08:39: daily. [address] Procedures Procedure Date / Time Performed Performing Clinician Sour e ASSIGNMENT OF BENEFITS 2022-01-14 19:07:58 Doctor Unassigned, No [facility] Name Medical Branch Encounters Start End Encounter Admission Attending Care Care Encounter Source Date/Time Date/Time Type Type Clinicians Facility Department ID 2022-01-14 2022-01-14 Outpatient R RADIOLOGY [facility] [id number] Univers 14:10:08 23:59:00 ity of [facility] 2022-01-14 2022-01-14 Hospital Radiology [facility] [id number] Univers 14:10:08 23:59:00 Encounter RENA [id number] ity of [facility] [id number] [place] [id number] [facility] 807 Branch 2022-01-14 2022-01-14 Orders Doctor MARILOU [id number] Univers 00:00:00 00:00:00 Only Unassigned, LEX [id number] ity of [place] [facility] [id number] Mirza as [id number] [facility] 009 Branch 2020-01-07 2020-01-07 Outpatient R SHRUTHI [facility] [id number] Univers 17:20:00 17:20:00 KEREN ity [facility] 2020-01-07 2020-01-07 Laboratory Lab, Adc Fam Pob I [facility] [id number] Univers 13:27:15 13:47:15 Only Keren Hawkins [facility] [id number] ity of [place] [id number] Mirza as Professio [phone] [facility] [address] Branch [address] One Results This patient has no known results.
[2022-06-13] MEDS ORDERED: GLUCAGON 1 MG/VIAL IM PRN (11:29)
[2022-06-13] MEDS ORDERED: D50W 25 GM/50 ML SYRINGE IV PRN (11:29)
[2022-06-13] MEDS: INSULIN -REGULAR HUMAN 50 UNIT/0.5 ML ML SQ SCH ×2 (11:30→16:30)
[2022-06-13] MEDS ORDERED: ACETAMINOPHEN 325 MG TABLET PO PRN (11:39)
[2022-06-13] MEDS ORDERED: D10W 125 ML IV PRN (11:41)
--- NOTE | 2022-06-13 15:49 | RAD REPORT ---
EXAM DESCRIPTION: RAD - Abdomen 1 View (KUB) - 06/13/2022 3:01 pm CLINICAL HISTORY: To check for fluid accomulation COMPARISON: Abdomen 1 View (KUB) dated 06/04/2022; Abdomen 1 View (KUB) dated 05/31/2022; Abdomen 1 Vi ew (KUB) dated 05/30/2022; Abdomen 1 View (KUB) dated 05/24/2022; Barium Swallow Modified dated 2021; Abdomen Pelvis W Contrast dated 06/02/2022 FINDINGS: Nonobstructive bowel gas pattern. No acute osseous abnormality.Chronic changes in the lung bases.No abnormal calcifications. IMPRESSION: Nonobstructive bowel gas pattern.
[2022-06-13] MEDS ORDERED: MELATONIN 3 MG TABLET PO PRN (16:07)
[2022-06-13] MEDS: ENOXAPARIN 40 MG/0.4 ML SQ SCH (16:46)
[2022-06-13 17:52] LABS: Specific Gravity 1.013 (1.005-1.030); Urine Bacteria None Seen /HPF (<20); Urine Bilirubin NEGATIVE (Negative); Urine Blood Negative (Negative); Urine Clarity Clear (Clear); Urine Color Yellow (Yellow); Urine Glucose NEGATIVE (Negative); Urine Mucus 1+ /HPF (None Seen); Urine Protein NEGATIVE (Negative); Urine RBC <5 /HPF (None Seen); Urine Urobilinogen Normal (Normal); Urine pH 5.5 (5.0-7.0)
--- NOTE | 2022-06-13 19:08 | RAD REPORT ---
EXAM DESCRIPTION: RAD - Barium Swallow Modified - 06/13/2022 4:09 pm CLINICAL HISTORY: Evaluate for aspiration. COMPARISON: Abdomen Exam Limited dated 06/08/2022 TECHNIQUE: The patient was given liquid, semi-solid and solid forms of barium. Lateral view fluorosc opic imaging was performed in conjunction with speech pathology service. FINDINGS: Laryngeal penetration not cleared. Consecutive drinks thin by cup only. Inconsistent mild oral retention. No aspiration identified on the submitted images. See speech pathology note for full report. Total fluoroscopy time: 2 minutes 14 seconds Duo dose: 25.46 mGy
[2022-06-13] MEDS: ACEBUTOLOL HCL 200 MG PO SCH (20:00)
[2022-06-13] MEDS: NYSTATIN PWDR 100000 UNIT/GM TOP SCH (20:00)
[2022-06-13] MEDS: Rifaximin 550 MG Tab PO SCH (20:15)
[2022-06-13] MEDS: SPIRONOLACTONE 100 MG TAB PO SCH (20:16)
[2022-06-13] MEDS: ATORVASTATIN 40 MG TAB PO SCH (20:17)
[2022-06-13] MEDS: SODIUM CHLORIDE 0.9% 10ML INJ IV SCH (20:18)
[2022-06-13] MEDS: THIAMINE 200 MG/2 ML INJ IVP SCH (20:18)
--- NOTE | 2022-06-13 20:52 | HP ---
Date of Admission: 06/13/2022 Zket-Jh-Gelz Visit Time Of Service: 12:30 p.m. Chief Complaint: Shortness of breath. History Of Present Illness: Ms. Morales is a 51-year-old patient with hypertension, hypoth yroidism, dyslipidemia, and depression who comes to [facility] with progressive shortness of breath over about 5 days. She came in on May 23, 2022. She had congestion, shortness of breat h, and midsternal pain that worsened with inspiration. She was noted to be tachycapneic with respira tory rate around 32 and oxygen saturation was 70% on room air. She had an elevated white blood cell count and low potassium. White blood cell count was 16,400. Potassium 2.2. Lactic acid elevated at 3.1. Her blood gas showed pH 7.54, pCO2 35.7, and pO2 62.9. Her chest CT was negative for pulmonar y embolus. Her chest x-ray did reveal bilateral pulmonary opacities, likely pneumonia. She was pranay aramis in the emergency room with antibiotics including Rocephin and azithromycin. She had potassium re placement and given IV fluids and admitted for further workup. Her angiogram of the chest on the h was again negative. During hospitalization, she had multiple chest x-rays to follow the pneumonia. The repeat chest x-ray on the showed no substantial difference. There was low lung volume lik jonny due to inspiration. A repeat chest x-ray on the 30 of May also showed no significant bilat eral pulmonary opacities and the chest findings were determined to be stable. However, during that t jackelyn, she had diagnosis of sepsis and she did require intubation for ventilatory support due to signif icant respiratory failure on the second day of hospitalization, that was on the . She received m ultiple IV antibiotics as noted and steroids. She had a PICC line placed on the and received me dications via PICC line. She also had a history of cirrhotic liver and ended up with ascites. The c irrhotic liver was related to alcohol and also she had right-sided portal colopathy and severe hypoka lemia. She did have abdominal centesis removing about 6 L previously. She did begin physical therapy with bed mobilization, but required maximum assistance for transfers. On the 06 of June, she had an abdominal centesis noted with fluid withdrawn. She resumed physi ca therapy on the . At that point, she was at standby assistance for supine to sit transitions. She did multiple sit to stands and at the edge of bed. She was contact guard to minimal assistance to ambulate about 30 feet with a front wheel walker and she was following commands. Her oxygen satu ration did improve significantly. However, over the next few days, she still required significant as sistance just to complete basic tasks, activities of daily living, transfers, gait, and ambulation an d it was determined that aggressive physical therapy would be more beneficial for her and she was the refore considered a candidate for inpatient rehabilitation. Past Medical History: Hypertension, hypothyroidism, alcoholic liver cirrhosis, depression, and dysli pidemia. Allergies: NO KNOWN DRUG ALLERGIES. Medications: Prior to admission are alprazolam 0.5 mg 3 times daily, levothyroxine 100 mcg daily, Pa xil 30 mg daily, Zocor 40 mg daily, HydroDIURIL 25 mg daily, Prilosec 40 mg daily, and acebutolol 200 mg twice daily. Family History: Noncontributory. Past Surgical History: She had has abdominal centesis multiple times. Social History: Patient smokes daily and also consumes alcohol, at least in the past that led to cir rhosis. Review of Systems: Currently she has no fevers or chills. Mild myalgias and arthralgias. No rash, headache, or weight change. No psychiatric complaints. Mild abdominal distention, but no pain. Mild edema. No cyanosi s in the lower extremities. Laboratory Studies: White blood cell count 5.9, hemoglobin 10.1, hematocrit 31.4, and platelets 91. Her INR 1.54. Chemistries: Sodium 136, potassium 3.9, chloride 105, carbon dioxide 24, creatinine 0.53, glucose ranged from 97 to 122, and calcium 8.9. Liver function studies: AST 36, ALT 38, alkal ine phosphatase 129. Her ammonia level is 38. Albumin 2.9. X-ray/imaging: A KUB x-ray done on the 04 of June showed Dobhoff in distal stomach area. She h as another pending KUB study. Physical Examination: Vital Signs: Blood pressure 139/84, pulse 91, respirations 16, temperature 97.1, and oxygen saturati on 94% on room air. General: Ms. Morales is doing her therapy. She actually just completed 250 feet of ambulation with a rolling walker. She is in no acute distress. HEENT: She is normocephalic, atraumatic. Sclerae anicteric. Oropharynx is pink and moist. Neck: Supple. Chest: Clear. Heart: Regular. Abdomen: She has a slightly distended abdomen. Extremities: No significant edema, cyanosis, or clubbing. Neurologic: She is alert and oriented to person, place, and situation. She has no expressive or rec eptive aphasias. Otherwise, she has mild diffuse weakness of lower extremities and depressed reflexe s of upper and lower extremities. She has good coordination, but still requires supervision to min a ssist. She is ambulating with a rolling walker. Current level of functioning: Currently she is at a standby assist level for [id number] transfers with a rolling walker, standby assistance for donning and doffing of pants. She did ambulate 250 fee t twice with contact guard to standby assistance using a rolling walker. She ascended and descended 10 steps with contact guard assistance using bilateral handrails. Rehabilitation And Medical Assessment And Plan: Ms. Morales is a 51-year-old patient with respirator y failure who has had intubation. She has liver failure and has had ascites with multiple abdominal centesis. She has hypertension, hypothyroidism, dyslipidemia, and depression. She is having physica l and occupational therapy aggressively and her hyperthyroidism, dyslipidemia, depression, and anxiet y were addressed with medications as noted. Her rehabilitation impairment group category is 06 neuro logic condition. Her impairment group code is 03.8, neuromuscular disorder. 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 Her active comorbidities are acute respiratory failure, anxiety, depressio n, essential hypertension, gastroesophageal reflux disease, dyslipidemia, hypothyroidism, pneumonia, sepsis, and encephalopathy. Please note risk of medical complication do include additional respirato ry failure, cardiac failure, stroke, deep vein thrombosis, skin breakdown, falls, muscle weakness, an d multiorgan failure. Active comorbid conditions present on admission: As noted above, she does have the respiratory chall enge with respiratory failure that is improving, anxiety, depression, essential hypertension also act antonio, and gastroesophageal reflux. Impact of Comorbidities: At this point, because of her risk of deep vein thrombus, she is on Lovenox 40 mg subcutaneous daily. For respiratory failure, she has oxygen as needed, but she is improving w ell. She will have a KUB to assess for additional abdominal fluid collection due to ascites from john er failure and she will be treated appropriately with abdominal centesis if need be. Rehab Specific Plan: She will have 3 hours a day, 5 of 7 days of physical and occupational therapy t o help her achieve her goals of becoming independent with upper and lower body dressing, toileting, t ransfers, and ambulating 500 feet with independent. The patient does have a good understanding of her admission and her process through rehabilitation in addition to her discharge. She has the potential to make great improvement as she receives her disc iplines of therapy. She will also likely require ongoing respiratory care for her depression and her risk of deep vein thrombosis and extra fluid collection in the abdomen. Given her complex medical c ondition and recent intubation and abdominal centesis, it is not safe for her to be cared for at a [facility] level such as penitentiary and she is more appropriate for inpatient rehabilitation at such a level as this facility. Barriers To Discharge: She does have the potential for additional ascites and will be evaluated as a ppropriate. She does have a KUB pending. Estimated Length Of Stay: 14 days. Disposition: Expected to be discharged home. Prognosis: Good. Rehabilitation Goals: 1.Become independent with upper and lower body dressing, toileting, transfers and activities of lynda y living as well as ambulating over 500 feet with independence. 2.The above goals were reviewed with Ms. Morales and she is in agreement. I acknowledge that I personally performed a full physical examination on Ms. Morales less than 2 hour s after admission to the rehabilitation unit and I have determined that she is able to tolerate the a linda course of treatment at the intensive level as noted. Detailed individualized plan of care for Denton Morales will be completed by hospital day 4, based on the preadmission screen, history and physica l, and therapy evaluations. SALAS/PIPER Voice ID: [id number]
[2022-06-13] MEDS ORDERED: ZOLPIDEM TARTRATE 10 MG TABLET PO SCH (21:00)
[2022-06-13] MEDS: ALPRAZOLAM 0.5 MG TABLET PO SCH (21:41)
[2022-06-14 05:15] LABS: Absolute Lymphocytes (CBC) 1.8 K/uL (0.7-4.9); Hematocrit 30.1 % (36.0-45.0); Lymphocytes % 34.5 % (15.3-44.8); MCV 88.1 fL (80-100); MPV 9.2 fL (7.6-11.3); RBC Red Blood Cell Count 3.41 M/uL (3.86-4.86)
[2022-06-14 05:29] LABS: Albumin 2.8 g/dL (3.4-5.0); Magnesium 1.9 mg/dL (1.6-2.4); Potassium 3.8 mmol/L (3.5-5.1)
[2022-06-14 06:41] LABS: Anisocytosis 2+; Blood Morphology Comment NOTED (NOT SEEN); Macrocytosis 2+; Platelet Estimate DECR; White Blood Cell Scan OK (OK)
[2022-06-14] MEDS: LEVOTHYROXINE SOD 0.1 MG TAB PO SCH (07:04)
[2022-06-14] MEDS: PANTOPRAZOLE 40MG TABLET PO SCH (07:04)
[2022-06-14] MEDS: SODIUM CHLORIDE 0.9% 10ML INJ IV SCH ×2 (08:00→19:49)
[2022-06-14] MEDS: ACEBUTOLOL HCL 200 MG PO SCH ×2 (08:00→19:47)
[2022-06-14] MEDS: POLYETHYL GLY 3350 17 GM/DOSE PO SCH (08:00)
[2022-06-14] MEDS: NYSTATIN PWDR 100000 UNIT/GM TOP SCH ×3 (08:00→19:49)
[2022-06-14] MEDS ORDERED: ALPRAZOLAM 0.5 MG TABLET PO SCH (08:00)
[2022-06-14] MEDS: Rifaximin 550 MG Tab PO SCH ×3 (08:00→19:49)
[2022-06-14] MEDS: LACTULOSE 20 GM/30 ML UCUP PO SCH (08:00)
--- NOTE | 2022-06-14 08:18 | P.RH.PN ---
Estimated Length of Stay: 10 Expected Discharge Date: 06/21/22 Discharge Disposition Plan: Home Family Support: Yes Penitentiary Goal: Mobility, Transfers, Self Care Vital Signs: Last Vital Signs Temp 97.4 F 06/14/22 07:14 Pulse 87 06/14/22 07:14 Resp 16 06/14/22 07:14 BP 121/63 06/14/22 07:14 Pulse Ox 93 06/14/22 07:14 Laboratory: Laboratory Last Values WBC 5.20 K/uL (4.3-10.9) 06/14/22 05:00 RBC 3.41 M/uL (3.86-4.86) L 06/14/22 05:00 Hgb 9.8 g/dL (12.0-15.0) L 06/14/22 05:00 Hct 30.1 % (36.0-45.0) L 06/14/22 05:00 MCV 88.1 fL (80-100) 06/14/22 05:00 MCH 28.6 pg (27.0-35.0) 06/14/22 05:00 MCHC 32.5 g/dL (32.0-36.0) 06/14/22 05:00 RDW 24.5 % (12.1-15.2) H 06/14/22 05:00 Plt Count 111 K/uL (152-406) L 06/14/22 05:00 MPV 9.2 fL (7.6-11.3) 06/14/22 05:00 Neutrophils % 48.4 % (41.7-73.7) 06/14/22 05:00 Lymphocytes % 34.5 % (15.3-44.8) 06/14/22 05:00 Monocytes % 10.7 % (3.3-12.3) 06/14/22 05:00 Eosinophils % 5.5 % (0-4.4) H 06/14/22 05:00 Basophils % 0.9 % (0-1.3) 06/14/22 05:00 Absolute Neutrophils 2.5 K/uL (1.8-8.0) 06/14/22 05:00 Absolute Lymphocytes 1.8 K/uL (0.7-4.9) 06/14/22 05:00 Absolute Monocytes 0.6 K/uL (0.1-1.3) 06/14/22 05:00 Absolute Eosinophils 0.3 K/uL (0-0.5) 06/14/22 05:00 Absolute Basophils 0.0 K/uL (0-0.5) 06/14/22 05:00 Platelet Estimate Decr 06/14/22 05:00 Anisocytosis 2+ 06/14/22 05:00 Macrocytosis 2+ 06/14/22 05:00 Morphology Comment Noted (NOT SEEN) 06/14/22 05:00 Sodium 140 mmol/L (136-145) 06/14/22 05:00 Potassium 3.8 mmol/L (3.5-5.1) 06/14/22 05:00 Chloride 110 mmol/L (98-107) H 06/14/22 05:00 Carbon Dioxide 25 mmol/L (21-32) 06/14/22 05:00 Anion Gap 8.8 mEq/L (5.0-15.0) 06/14/22 05:00 BUN 5 mg/dL (7-18) L 06/14/22 05:00 Creatinine 0.50 mg/dL (0.55-1.02) L 06/14/22 05:00 Est GFR (CKD-EPI) 113 ml/min (=/>90) 06/14/22 05:00 Glucose 110 mg/dL (74-106) H 06/14/22 05:00 POC Glucose 129 mg/dL (65-120) H 06/13/22 16:17 Calcium 8.8 mg/dL (8.5-10.1) 06/14/22 05:00 Magnesium 1.9 mg/dL (1.6-2.4) 06/14/22 05:00 Albumin 2.8 g/dL (3.4-5.0) L 06/14/22 05:00 Prealbumin 10.0 mg/dL (20-40) L 06/14/22 05:00 Urine Color Yellow (Yellow) 06/13/22 15:05 Urine Clarity Clear (Clear) 06/13/22 15:05 Urine pH 5.5 (5.0-7.0) 06/13/22 15:05 Ur Specific [place] 1.013 (1.005-1.030) 06/13/22 15:05 Glucose (UA)(Auto) Negative (Negative) 06/13/22 15:05 Urine Ketones Negative (Negative) 06/13/22 15:05 Urine Blood Negative (Negative) 06/13/22 15:05 Urine Nitrite Negative (Negative) 06/13/22 15:05 Urine Bilirubin Negative (Negative) 06/13/22 15:05 Urine Urobilinogen Normal (Normal) 06/13/22 15:05 Ur Leukocyte Esterase 75 Renita/uL (Negative) H 06/13/22 15:05 Urine RBC <5 /HPF (None Seen) 06/13/22 15:05 Urine WBC <5 /HPF (<5) 06/13/22 15:05 Ur Squamous Epith Cells 5-10 /HPF (None Seen) 06/13/22 15:05 Urine Bacteria None seen /HPF (<20) 06/13/22 15:05 Urine Mucus 1+ /HPF (None Seen) 06/13/22 15:05 Urine Culture Reflexed Not needed 06/13/22 15:05 Urine Total Protein Negative (Negative) 06/13/22 15:05 SARS-CoV-2 Rap RNA(RT-PCR) Cancelled 06/14/22 06:30 Smear Scan Ok (OK) 06/14/22 05:00 Weight: 193 lb 9.6 oz Wound Present: No Negative Pressure Wound Therapy Present: No Physician Update: She is making good progress overall. Hgb 9.8, will start hemocyte plus and mild malnutrition on protein supplementation. She walked 250' CGA to SBA, up and down 10 steps. Goal of ambulating without an assistive device. Summary: Patient's care plan and snf goals have been reviewed and revised as necessary. Please see the Rehabilitation Signature page for all necessary signatures.
[2022-06-14] MEDS: SPIRONOLACTONE 100 MG TAB PO SCH ×2 (08:19→19:47)
[2022-06-14] MEDS: hydroCHLOROthiazide 25 MG TAB PO SCH (08:21)
[2022-06-14] MEDS: FUROSEMIDE 40 MG TABLET PO SCH (08:21)
[2022-06-14] MEDS: PARoxetine HCL 10 MG TAB PO SCH (08:21)
[2022-06-14] MEDS: THIAMINE 200 MG/2 ML INJ IVP SCH ×2 (08:25→19:49)
[2022-06-14] MEDS ORDERED: ALBUTEROL INHALER 60 PUFF/8 GM IH PRN (10:41)
[2022-06-14] MEDS ORDERED: ALBUTEROL 90 MCG IH PRN (10:51)
[2022-06-14] MEDS: ENOXAPARIN 40 MG/0.4 ML SQ SCH (17:06)
[2022-06-14] MEDS: ENSURE CLEAR 200 ML CAN PO SCH (19:48)
[2022-06-14] MEDS: ALPRAZOLAM 0.5 MG TABLET PO SCH (19:50)
[2022-06-14] MEDS: ATORVASTATIN 40 MG TAB PO SCH (19:53)
[2022-06-15] MEDS: PANTOPRAZOLE 40MG TABLET PO SCH (05:27)
[2022-06-15] MEDS: LEVOTHYROXINE SOD 0.1 MG TAB PO SCH (05:27)
[2022-06-15] MEDS: ACEBUTOLOL HCL 200 MG PO SCH ×2 (08:00→19:44)
[2022-06-15] MEDS: POLYETHYL GLY 3350 17 GM/DOSE PO SCH (08:00)
[2022-06-15] MEDS: LACTULOSE 20 GM/30 ML UCUP PO SCH (08:00)
[2022-06-15] MEDS: THIAMINE 200 MG/2 ML INJ IVP SCH (08:00)
[2022-06-15] MEDS: SODIUM CHLORIDE 0.9% 10ML INJ IV SCH ×2 (08:00→19:45)
[2022-06-15] MEDS: NYSTATIN PWDR 100000 UNIT/GM TOP SCH ×2 (08:00→19:45)
[2022-06-15] MEDS: ENSURE CLEAR 200 ML CAN PO SCH ×2 (08:00→19:45)
[2022-06-15] MEDS: SPIRONOLACTONE 100 MG TAB PO SCH (08:00)
[2022-06-15] MEDS: hydroCHLOROthiazide 25 MG TAB PO SCH (08:26)
[2022-06-15] MEDS: FUROSEMIDE 40 MG TABLET PO SCH (08:27)
[2022-06-15] MEDS: PARoxetine HCL 10 MG TAB PO SCH (08:28)
[2022-06-15] MEDS: Rifaximin 550 MG Tab PO SCH ×2 (09:36→19:44)
[2022-06-15] MEDS: ENOXAPARIN 40 MG/0.4 ML SQ SCH (16:43)
[2022-06-15] MEDS: THIAMINE HCL 100 MG TABLET PO SCH (19:44)
[2022-06-15] MEDS: CRANBERRY FRUIT EXTRACT 200 MG CAP PO SCH (19:44)
[2022-06-15] MEDS: ATORVASTATIN 40 MG TAB PO SCH (19:45)
[2022-06-15] MEDS: ALPRAZOLAM 0.5 MG TABLET PO SCH (21:47)
[2022-06-16 04:38] LABS: Absolute Lymphocytes (CBC) 2.3 K/uL (0.7-4.9); Hematocrit 33.3 % (36.0-45.0); Lymphocytes % 37.3 % (15.3-44.8); MCV 87.4 fL (80-100); MPV 9.5 fL (7.6-11.3); RBC Red Blood Cell Count 3.81 M/uL (3.86-4.86)
[2022-06-16 05:12] LABS: Potassium 3.3 mmol/L (3.5-5.1)
[2022-06-16] MEDS: SPIRONOLACTONE 25 MG TABLET PO SCH ×2 (05:52→12:34)
[2022-06-16] MEDS: PANTOPRAZOLE 40MG TABLET PO SCH (05:52)
[2022-06-16] MEDS: LEVOTHYROXINE SOD 0.1 MG TAB PO SCH (05:53)
[2022-06-16] MEDS: Rifaximin 550 MG Tab PO SCH ×2 (07:49→19:21)
[2022-06-16] MEDS: FE SULF/FA/VIT B COMP & C TAB PO SCH (07:50)
[2022-06-16] MEDS: CRANBERRY FRUIT EXTRACT 200 MG CAP PO SCH ×2 (07:50→19:23)
[2022-06-16] MEDS: PARoxetine HCL 10 MG TAB PO SCH (07:50)
[2022-06-16] MEDS: THIAMINE HCL 100 MG TABLET PO SCH ×2 (07:50→19:23)
[2022-06-16] MEDS: NYSTATIN PWDR 100000 UNIT/GM TOP SCH ×2 (07:50→19:24)
[2022-06-16] MEDS: FUROSEMIDE 40 MG TABLET PO SCH (07:51)
[2022-06-16] MEDS: ENSURE CLEAR 200 ML CAN PO SCH ×2 (07:51→19:24)
[2022-06-16] MEDS: SODIUM CHLORIDE 0.9% 10ML INJ IV SCH ×2 (07:51→19:24)
[2022-06-16] MEDS ORDERED: THIAMINE HCL 100 MG TABLET PO SCH (08:00)
[2022-06-16] MEDS: LACTULOSE 20 GM/30 ML UCUP PO SCH (08:00)
[2022-06-16] MEDS: ACEBUTOLOL HCL 200 MG PO SCH ×2 (08:00→19:24)
[2022-06-16] MEDS: POLYETHYL GLY 3350 17 GM/DOSE PO SCH (08:00)
[2022-06-16] MEDS ORDERED: SPIRONOLACTONE 25 MG TABLET PO SCH (08:00)
[2022-06-16] MEDS ORDERED: POTASSIUM CL SA 10 MEQ TAB PO ONE (11:00)
[2022-06-16] MEDS: METOPROLOL TAR 25 MG TAB PO SCH (12:59)
[2022-06-16] MEDS: ENOXAPARIN 40 MG/0.4 ML SQ SCH (16:13)
[2022-06-16] MEDS: ATORVASTATIN 40 MG TAB PO SCH (19:23)
[2022-06-16] MEDS: ALPRAZOLAM 0.5 MG TABLET PO SCH (22:13)
[2022-06-17] MEDS: SPIRONOLACTONE 25 MG TABLET PO SCH ×2 (05:05→12:46)
[2022-06-17] MEDS: METOPROLOL TAR 25 MG TAB PO SCH (05:05)
[2022-06-17] MEDS: LEVOTHYROXINE SOD 0.1 MG TAB PO SCH (05:12)
[2022-06-17] MEDS: PANTOPRAZOLE 40MG TABLET PO SCH (05:12)
[2022-06-17] MEDS: POLYETHYL GLY 3350 17 GM/DOSE PO SCH (08:00)
[2022-06-17] MEDS: NYSTATIN PWDR 100000 UNIT/GM TOP SCH ×2 (08:00→20:35)
[2022-06-17] MEDS: LACTULOSE 20 GM/30 ML UCUP PO SCH (08:00)
[2022-06-17] MEDS: SODIUM CHLORIDE 0.9% 10ML INJ IV SCH ×2 (08:00→20:35)
[2022-06-17] MEDS: ENSURE CLEAR 200 ML CAN PO SCH ×2 (08:00→20:00)
[2022-06-17] MEDS: THIAMINE HCL 100 MG TABLET PO SCH ×2 (08:19→20:34)
[2022-06-17] MEDS: CRANBERRY FRUIT EXTRACT 200 MG CAP PO SCH ×2 (08:19→20:34)
[2022-06-17] MEDS: PARoxetine HCL 10 MG TAB PO SCH (08:19)
[2022-06-17] MEDS: FE SULF/FA/VIT B COMP & C TAB PO SCH (08:19)
[2022-06-17] MEDS: POTASSIUM CL SA 10 MEQ TAB PO SCH (08:21)
[2022-06-17] MEDS: FUROSEMIDE 40 MG TABLET PO SCH (08:25)
[2022-06-17] MEDS: Rifaximin 550 MG Tab PO SCH ×2 (09:19→20:35)
[2022-06-17] MEDS: ENOXAPARIN 40 MG/0.4 ML SQ SCH (16:22)
[2022-06-17] MEDS: ATORVASTATIN 40 MG TAB PO SCH (20:34)
[2022-06-17] MEDS: ALPRAZOLAM 0.5 MG TABLET PO SCH (22:00)
--- NOTE | 2022-06-17 22:06 | PN ---
Date of Progress Note: 06/17/2022 Lqdo-Bg-Zlun Progress Note Visit Time Of Service: 1 p.m. Subjective: Ms. Morales is doing well. She denies any significant pain. She reports feeling strong er in arms and legs. She is participating very well in all therapy. Review of Systems: No fevers, chills, nausea, vomiting, myalgias, arthralgias, rash, headache, weight change. No psychi atric complaints. No gastrointestinal or genitourinary issues. Physical Examination: Vital Signs: Blood pressure 113/67, pulse 91, respiratory rate 16, temperature 97.7, oxygen saturati on 92%. Weight 193 pounds, height 5 feet 2 inches, BMI 34.5. Neurologic: She has no focal cranial nerve deficits. She has mild diffuse weakness proximal and dis jeff, but she is doing very well. Lungs: Clear. Heart: Regular. Extremities: Show no edema or cyanosis. Laboratory Studies: White blood cell count 6.3, hemoglobin 10.8, platelets 145. Sodium 136, potassi um 3.3, chloride 98, carbon dioxide 29, BUN 7, creatinine 0.64, glucose 125, calcium 9.4. She had a KUB x-ray done on 06/13. That study showed nonobstructive bowel gas pattern. No abnormali ties reported there. She had a modified barium swallow study on , and that study showed laryngea l penetration was not cleared. She did consecutive drinks with thin liquids with cough only. There was inconsistent mild oral retention. However, no aspiration was identified on the images. She is f ollowed by the speech pathologist. Medications: Tylenol 650 mg every 6 hours, Xanax 0.5 mg at bedtime, Lipitor 40 mg at bedtime, Loveno x 40 mg subcutaneously daily, Ensure Clear 237 mL twice daily, Lasix 40 mg daily, Synthroid 0.1 mg da galindo, lidocaine patch 1 in the back as needed daily, melatonin 3 at bedtime, Lopressor 12.5 mg daily, Hemocyte-Plus 1 tablet daily, Mycostatin powder apply topically to itching areas twice daily as neede d, Protonix 40 mg daily, Paxil 20 mg daily, potassium 10 mEq daily, rifaximin 550 mg twice daily, Ald actone 150 mg twice daily, thiamine 100 mg twice daily. Current Functional Status: Currently, Ms. Morales is able to ambulate over 1000 feet with standby as sistance using a rolling walker. She also did 500 feet 3 times similarly so. She ambulated also wit h a single prong cane covering 250 twice and 750 feet once. She ascended and descended steps in the stairwell with at least 6 steps with bilateral upper extremities and handrails with contact guard ass istance. She did ambulation from room to shower independently and took shower and toilet independent ly. She was independent with her shower, dressing, toileting, hygiene, shaving, and hair grooming. Progress Towards Rehabilitation Goals: She is making excellent progress towards goals of becoming in dependent with upper and lower body dressing, donning and doffing of her shoes, transferring and perf orming her shower, toileting and ambulating a 1000 feet with no assistive device for single parking. Assessment And Plan: Ms. Morales is a 51-year-old patient admitted to the rehabilitation unit with c ritical illness myopathy, hypertension, hypothyroidism, dyslipidemia, depression, anemia, constipatio n, anxiety, who was doing very well with physical and occupational therapy. Her comorbid conditions are stably managed with the list of medications as noted above. Plan: 1.Continue aggressive physical, occupational, and speech therapy. 2.Continue thiamine. 3.For history of drinking with ascites and cirrhosis of the liver, continue Aldactone and potassium. Continue rifaximin. 4.Continue melatonin for insomnia. 5.Continue lactulose as needed to decrease the risk of elevated ammonia due to her liver failure. 6.Continue Lipitor for dyslipidemia. 7.Continue Ensure for low protein levels. Comorbidities That Continue To Impact Rehabilitation Process: At this point, her comorbidities are s tably managed and do not negatively impact her rehabilitation. LB/MODL Voice ID: [id number] Report ID: [id number]
[2022-06-18] MEDS: PANTOPRAZOLE 40MG TABLET PO SCH (05:07)
[2022-06-18] MEDS: LEVOTHYROXINE SOD 0.1 MG TAB PO SCH (05:07)
[2022-06-18] MEDS: METOPROLOL TAR 25 MG TAB PO SCH (05:08)
[2022-06-18] MEDS: SPIRONOLACTONE 25 MG TABLET PO SCH ×2 (05:08→13:15)
[2022-06-18 06:36] LABS: Potassium 3.6 mmol/L (3.5-5.1)
[2022-06-18] MEDS: LACTULOSE 20 GM/30 ML UCUP PO SCH (07:41)
[2022-06-18] MEDS: POLYETHYL GLY 3350 17 GM/DOSE PO SCH (07:42)
[2022-06-18] MEDS: FUROSEMIDE 40 MG TABLET PO SCH (07:45)
[2022-06-18] MEDS: FE SULF/FA/VIT B COMP & C TAB PO SCH (07:45)
[2022-06-18] MEDS: NYSTATIN PWDR 100000 UNIT/GM TOP SCH ×2 (07:45→20:08)
[2022-06-18] MEDS: CRANBERRY FRUIT EXTRACT 200 MG CAP PO SCH ×2 (07:45→20:08)
[2022-06-18] MEDS: Rifaximin 550 MG Tab PO SCH ×2 (07:45→20:10)
[2022-06-18] MEDS: PARoxetine HCL 10 MG TAB PO SCH (07:45)
[2022-06-18] MEDS: POTASSIUM CL SA 10 MEQ TAB PO SCH (07:47)
[2022-06-18] MEDS: SODIUM CHLORIDE 0.9% 10ML INJ IV SCH ×2 (07:48→20:00)
[2022-06-18] MEDS: ENSURE CLEAR 200 ML CAN PO SCH ×2 (07:48→20:00)
[2022-06-18] MEDS: THIAMINE HCL 100 MG TABLET PO SCH ×2 (07:49→20:08)
[2022-06-18] MEDS ORDERED: LIDOCAINE 4% PATCH TOP SCH ×2 (08:00→21:00)
[2022-06-18] MEDS: ENOXAPARIN 40 MG/0.4 ML SQ SCH (17:00)
[2022-06-18 20:03] VITALS: TEMP 97
[2022-06-18] MEDS: ATORVASTATIN 40 MG TAB PO SCH (20:09)
[2022-06-18] MEDS: ALPRAZOLAM 0.5 MG TABLET PO SCH (20:09)
--- NOTE | 2022-06-18 21:07 | PN ---
Date of Progress Note: 06/18/2022 Time Of Service: 1 p.m. Subjective: Ms. Morales is doing well. She is in no acute distress. She has no complaints. Pain i s well managed. She feels much stronger and steady. Review of Systems: No fevers, chills, nausea, vomiting, myalgias, arthralgias, rash, headache, weight change. No psychi atric issues. Physical Examination: Vital Signs: Blood pressure 129/80, pulse 88, respiratory rate 16, temperature 97. Please note, she does not require any oxygen at this point. On room air, oxygen saturation 94% minimum and she, with exertion also does not require oxygenation. Neurologic: She has no focal neurological deficits. Lungs: Clear. Heart: Regular. Extremities: Show no edema or cyanosis. Laboratory Studies: No new laboratory studies except for basic metabolic panel is normal. Glucose o f 120. COVID-19 testing today is negative. X-ray Imaging: No new x-ray imaging. Medications: Unchanged, compared to yesterday. She is still on Lipitor 40 mg at bedtime, Xanax 0.5 mg as needed, Tylenol 650 mg every 6 hours as needed, Lovenox 40 mg subcutaneously daily, Lasix 40 mg daily. Lactulose 20 mg daily, Synthroid 0.1 mg daily, melatonin 3 mg at night as needed, Lopressor 12.5 mg daily, Hemocyte-Plus 1 tablet daily, Mycostatin powder apply topically twice daily as needed, Protonix 40 mg daily, Paxil 20 mg daily, rifaximin 550 mg twice daily, potassium 10 mEq daily, Aldac tone 150 mg twice daily, vitamin B1 100 mg twice daily. Current Functional Status: At present, she is able to ambulate independently over 1500 feet, also up and down 8 steps with handrail and a single prong cane independently. She did not require oxygen wh ile doing these activities and did not have shortness of breath. She did fine motor activity with in dependence, transfers done with independence. Progress Towards Rehabilitation Goals: She has met her rehabilitation goals and has done excellent a nd is now ready for discharge. Assessment And Plan: Ms. Morales is a 51-year-old patient with a history of long-standing alcohol ab use, alcoholic liver cirrhosis, ascites, and who came in with critical illness myopathy. She has don e excellent with her physical and occupational therapy with speech and she is ready for discharge. S he will be discharged to a facility where she can be given an opportunity to stop using alcohol. At this point, she does not require any oxygen for activity as noted above, covering her at least 1500 f eet and 8 steps with no significant shortness of breath. She has comorbid conditions that are manage d well. Her comorbidities include hypertension, hypothyroidism, dyslipidemia, depression, anemia, co nstipation, anxiety. Medications as listed above, are managing these conditions well. Comorbidities That Continue To Impact Rehabilitation Process: At this point, she has no comorbiditie s limiting rehabilitation and she is ready for discharge. LB/MODL Voice ID: [id number] Report ID: [id number]
[2022-06-19] MEDS: LEVOTHYROXINE SOD 0.1 MG TAB PO SCH (05:03)
[2022-06-19] MEDS: PANTOPRAZOLE 40MG TABLET PO SCH (05:03)
[2022-06-19] MEDS: SPIRONOLACTONE 25 MG TABLET PO SCH (05:04)
[2022-06-19] MEDS: METOPROLOL TAR 25 MG TAB PO SCH ×2 (05:05→07:17)
[2022-06-19 07:17] VITALS: BP 119/68
[2022-06-19] MEDS: NYSTATIN PWDR 100000 UNIT/GM TOP SCH (07:19)
[2022-06-19] MEDS: FUROSEMIDE 40 MG TABLET PO SCH (07:19)
[2022-06-19] MEDS: SODIUM CHLORIDE 0.9% 10ML INJ IV SCH (07:20)
[2022-06-19] MEDS: POTASSIUM CL SA 10 MEQ TAB PO SCH (07:20)
[2022-06-19] MEDS: CRANBERRY FRUIT EXTRACT 200 MG CAP PO SCH (07:20)
[2022-06-19] MEDS: FE SULF/FA/VIT B COMP & C TAB PO SCH (07:20)
[2022-06-19] MEDS: PARoxetine HCL 10 MG TAB PO SCH (07:20)
[2022-06-19] MEDS: THIAMINE HCL 100 MG TABLET PO SCH (07:20)
[2022-06-19] MEDS: LACTULOSE 20 GM/30 ML UCUP PO SCH (07:21)
[2022-06-19] MEDS: POLYETHYL GLY 3350 17 GM/DOSE PO SCH (07:21)
[2022-06-19] MEDS: ENSURE CLEAR 200 ML CAN PO SCH (07:21)
[2022-06-19] MEDS: Rifaximin 550 MG Tab PO SCH (07:23)
--- NOTE | 2022-07-01 20:26 | DS ---
Date of Discharge: 06/19/2022 Discharge Condition: Good. Discharge Diagnoses: Alcoholic liver cirrhosis with ascites, hypothyroidism, hypertension, dyslipide juan, depression, anemia, constipation, anxiety. Consultations: None. Procedures: Patient had a modified barium swallow study done on the . The study did show laryng eal penetration not flared and consistent mild oral retention. There was no aspiration identified on the subsequent images. A KUB was done on 06/13/2022. The study showed a nonobstructive bowel gas p attern. Wound Care: None. Allergies: NO KNOWN DRUG ALLERGIES. Medications: Tylenol 650 every 6 hours as needed, albuterol inhaler 2 puffs every 6 hours as needed, Xanax 0.5 mg at bedtime, Lipitor 40 mg at bedtime, Ensure Clear 237 mL twice daily, Lasix 40 mg lynda y, HydroDIURIL 25 mg daily, lactulose 20 g daily, Synthroid 0.1 mg daily, lidocaine patch 1 topically daily, melatonin 3 mg at bedtime, Lopressor 12.5 mg daily, multivitamin with Hemocyte-Plus 1 tablet daily, Mycostatin powder apply topically twice daily, Protonix 40 mg daily. Paxil 20 mg daily, potas sium 10 mEq daily, rifaximin 550 mg twice daily, spironolactone 150 mg twice daily, thiamine 100 mg t wice daily, Ambien 10 mg at bedtime. Hospital Course: Ms. Morales was admitted to the rehabilitation unit with longstanding alcohol abuse with alcoholic liver cirrhosis and having had abdominocentesis as well. She did have a critical ill ness myopathy from essentially moderately prolonged hospital stay. I think the symptoms aggravated b y alcoholic liver cirrhosis. She did have comorbidities of hypertension, which was managed with mult iple medications as indicated. Hypothyroidism treated by continuing her Synthroid. Dyslipidemia melissa atment and also continued depression was addressed and tobacco dependency addressed with a nicotine p [facility]. She had no hospital complications and did well throughout her hospitalization. She participat ed very well with physical and occupational therapy. Laboratory Studies: White blood cell count 6.3, hemoglobin 10.8, platelets 145. Chemistries: Sodiu m 137, potassium 3.6, chloride 103, carbon dioxide 29, BUN 9, creatinine 0.59, glucose ranged from 10 9 to 120, calcium 8.7. Prealbumin 10.0, albumin 2.8. COVID-19 test was negative on the . Progress made with physical and occupational therapy by hospital discharge: She was able to perform wheelchair transfers, stand and pivot and straight cane independently. She ambulated 1500 feet on mu ltiple surfaces indoors and outdoors independently with good tolerance. She ascended and descended 1 5 steps with bilateral hand rails independently. It was noted that all of her goals for physical the rapy were met and she was discharged to [facility] to continue treatment of her alcohol dependency instead of home as she did have significant long history of alcohol abuse and was at higher risk of r eturning to alcohol consumption. Regarding her occupational therapy, she was also independent with u pper and lower body dressing, with her transferring, her toileting, and performing other activities o f daily living. She was discharge to [facility] for patient's substance abuse to begin a rehabilita tion process with respect to chemical dependency. SALAS/PIPER Voice ID: [id number] Report ID: [id number]
== END 2022-06-19 11:04 | disposition home or self-care (01) | DRG 93 ==
LOC: 5TH 10:45
PROVIDERS: ADMIT Psychiatry & Neurology Neurology with Special Qualifications in Child Neurology; ATTEND Psychiatry & Neurology Neurology with Special Qualifications in Child Neurology
DX: G72.81 Critical illness myopathy (principal); K70.31 Alcoholic cirrhosis of liver with ascites; F10.10 Alcohol abuse, uncomplicated; I10 Essential (primary) hypertension; E03.9 Hypothyroidism, unspecified; E78.5 Hyperlipidemia, unspecified; F32.A Depression, unspecified; D64.9 Anemia, unspecified; K59.00 Constipation, unspecified; F41.9 Anxiety disorder, unspecified
CPT/HCPCS: 36415; 74018; 74230; 80048; 81001; 82040; 82947; 83735; 84134; 85025; 87086; 87088; 92611; 97110; 97116; 97161; 97165; 97530; 97542; J1650; J2001; J3411; U0003

== ENCOUNTER 2022-07-10 12:17 | Emergency (ER) | payer BC ==
--- OUTSIDE RECORDS SUMMARY | 2022-07-10 12:20 | XMS REPORT | Continuity of Care Document ---
:1970 Author Organization [facility] t Address [address] [place] [address] Care Team Providers Name Role Phone Wilber ESCALERA Primary Care Physician Unavailable RADIOLOGY Attending Clinician Unavailable Radiology Attending Clinician Unavailable Doctor Unassigned, [place] Attending Clinician Unavailable KEREN HAWKINS Attending Clinician Unavailable Lab, Adc Fam Pob I Attending Clinician Unavailable Ebrahim DECORATOR LIGHTING FIXTURESKeren Attending Clinician JOHNNAVENUS Del Toro Admitting Clinician Unavailable Payers Payer Name Policy Type Policy Number Effective Date Expiration Date S [facility] BCBS [facility] [id number] BCBS [facility] [id number] 2021 00:00:00 Problems Condition Condition Condition Status Onset Resolution Last Treating Co mments Source Name Details Category Date Date Treatment Clinician Date No known No known Disease Unive rs active active ity of problems problems [facility] Allergies, Adverse Reactions, Alerts Allergy Allergy Status Severity Reaction(s) Onset Inactive Treating Comm ents Source Name Type Date Date Clinician NO KNOWN Drug Active Univers ALLERGIE Class ity of S [facility] Social History Social Habit Start Date Stop Date Quantity Comments Source History of tobacco Cigarette Smoker University of use [facility] History SDOH University o f Alcohol Frequency [place] M [facility]ical Branch History SDOH University o f Alcohol Std Drinks [facility] History SDOH University o f Alcohol Binge [place] [facility] Exposure to Not sure University of SARS-CoV-2 (event) [facility] Alcohol intake 2016-10-29 2016-10-29 Current drinker Unive rsity of 00:00:00 00:00:00 of alcohol [facility] (finding) Branch Tobacco use and 2016-10-10 2016-10-10 Smokeless tobacco Un iversity of exposure 00:00:00 00:00:00 non-user [facility] Cigarettes smoked 2016-10-10 2016-10-10 Univers ity of current (pack per 00:00:00 00:00:00 [facility] ) - Reported Branch Alcohol Comment 2016-10-10 2016-10-10 Occasional Universit y of 00:00:00 00:00:00 Drinker [facility] Sex Ass[birth year] At [birth year] Universit y of 00:00:00 00:00:00 [facility] Smoking Status Start Date Stop Date Source Smokes tobacco daily 2016-10-10 00:00:00 Univers ity of [facility] Medications Ordered Filled Start Stop Current Ordering Indication Dosage Frequency Signature Comments Components Source Medication Medication Date Date Medication? Clinician (SIG) Name Name acebutolol Yes 200mg Take 200 Un saray (SECTRAL) 5-01 mg by ity of 200 mg 13:39: mouth 2 [place] capsule 03 (two) Medical times [place] daily. amLODIPine Yes 10mg Take 10 mg U nivers (NORVASC) 5-01 by mouth ity of 10 mg 13:39: daily. [place] tablet [address] [place] [address] levothyroxi Yes 25ug Take 25 Uni vers ne 5-01 mcg by ity of (SYNTHROID) 13:39: mouth [place] 25 mcg 03 every Medical tablet morning. Branch simvastatin Yes 40mg Take 40 mg Univers (ZOCOR) 40 5-01 by mouth ity o f mg tablet 13:39: at [place] [address] bedtime. Medical Branch hydroCHLORO Yes 25mg Take 25 mg Univers thiazide 25 5-01 by mouth ity of mg tablet 13:39: daily. [address] paroxetine Yes 20mg Take 20 mg U nivers 20 mg 5-01 by mouth ity of tablet 13:39: daily. [address] acebutolol Yes 200mg Take 200 Un saray (SECTRAL) 5-01 mg by ity of 200 mg 08:39: mouth 2 [place] capsule 03 (two) Medical times [place] daily. amLODIPine Yes 10mg Take 10 mg [...] ity o f mg tablet 08:39: at [place] 03 bedtime. Medical Branch hydroCHLORO Yes 25mg Take 25 mg Univers thiazide 25 5-01 by mouth ity of mg tablet 08:39: daily. [place] [facility] Branch paroxetine Yes 20mg Take 20 mg U nivers 20 mg 5-01 by mouth ity of tablet 08:39: daily. [place] [facility] Branch acebutolol Yes 200mg Take 200 Un saray (SECTRAL) 5-01 mg by ity of 200 mg 08:39: mouth 2 [place] capsule 03 (two) Medical times [place] daily. amLODIPine Yes 10mg Take 10 mg U nivers (NORVASC) 5-01 by mouth ity of 10 mg 08:39: daily. [place] tablet Medical Branch levothyroxi Yes 25ug Take 25 Uni vers ne 5-01 mcg by ity of (SYNTHROID) 08:39: mouth [place] 25 mcg 03 every Medical tablet morning. Branch simvastatin Yes 40mg Take 40 mg Univers (ZOCOR) 40 5-01 by mouth ity o f mg tablet 08:39: at [place] [address] bedtime. Medical Branch hydroCHLORO Yes 25mg Take 25 mg Univers thiazide 25 5-01 by mouth ity of mg tablet 08:39: daily. [place] [facility] paroxetine Yes 20mg Take 20 mg U nivers 20 mg 5-01 by mouth ity of tablet 08:39: daily. [address] Procedures Procedure Date / Time Performed Performing Clinician [facility] e ASSIGNMENT OF BENEFITS 2022-01-14 19:07:58 Doctor Unassigned, No [facility] Name Medical Branch Encounters Start End Encounter Admission Attending Care Care Encounter Source Date/Time Date/Time Type Type Clinicians Facility Department ID 2022-07-02 Outpatient [facility] [id number] [place] 16:15:00 [id number] [facility] 2022-01-14 2022-01-14 Outpatient R RADIOLOGY [facility] [id number] Univers 14:10:08 23:59:00 ity of [facility] 2022-01-14 2022-01-14 Hospital Radiology [facility] [id number] Univers 14:10:08 23:59:00 Encounter RENA [id number] ity of [id number] [id number] [facility] [address] [place] 2022-01-14 2022-01-14 Orders Doctor MARILOU [id number] Univers 00:00:00 00:00:00 Only Unassigned, LEX [id number] ity of [place] [facility] [id number] [place]za as [id number] [facility] 009 Branch 2020-01-07 2020-01-07 Outpatient R SHRUTHI [facility] [id number] Univers 17:20:00 17:20:00 KEREN sahay [facility] 2020-01-07 2020-01-07 Laboratory Lab, Adc Fam Pob I [facility] [id number] Univers 13:27:15 13:47:15 Only Keren Hawkins [facility] [id number] ity of [place] [id number] Mirza as Professio [phone] [address] Office Building One Results This patient has no known results.
--- NOTE | 2022-07-10 12:53 | RAD REPORT ---
EXAM DESCRIPTION: RAD - Chest Pa And Lat (2 Views) - 07/10/2022 12:44 pm CLINICAL HISTORY: COUGH COMPARISON: Abdomen 1 View (KUB) dated 06/13/2022; Abdomen 1 View (KUB) dated 06/04/2022; Chest Singl e View dated 06/03/2022; Chest Single View dated 06/02/2022 FINDINGS: Lines: None. Lungs: Ill-defined lingular and right basilar airspace disease. Pleural: No significant pleural effusions or pneumothorax. Cardiac: The heart size is within normal limits. Mediastinum: Within normal limits. Bones: No acute fractures. Other: None IMPRESSION: Ill-defined opacities in the lingula and right lower lobe suspicious for pneumonia.
--- NOTE | 2022-07-10 13:23 | EDPHYS ---
Physician Documentation [facility] Name: Iqra Morales Age: 51 yrs Sex: Female : 1970 Arrival Date: 07/10/2022 Time: 12:19 Bed IW3 Private MD: ED Physician Dion Wan HPI: 07/10 13:49 This 51 yrs old Female presents to ER via Ambulatory with complaints of Cough - covid+. kb 13:49 The patient or guardian reports cough, that is intermittent, described as moderate. kb Onset: The symptoms/episode began/occurred 1 month(s) ago. Severity of symptoms: At their worst the symptoms were mild, moderate, in the emergency department the symptoms are unchanged. Modifying factors: The symptoms are alleviated by nothing, the symptoms are aggravated by nothing. Associated signs and symptoms: Pertinent positives: rhinorrhea. The patient has not experienced similar symptoms in the past. The patient has not recently seen a physician. Pt reports cough for a month. congestion started a few days ago so pt was tested for covid yesterday and it was positive. Came in today for the cough. Historical: - Allergies: 12:29 No Known Allergies; aa5 - PMHx: 12:26 Depression; Hyperlipidemia; Hypertension; Hypothyroidism; aa5 12:29 Cirrhosis of liver; aa5 - Immunization history:: Client reports having NOT received the Covid vaccine. - Social history:: Smoking status: Patient reports the use of cigarette tobacco products, 4-5 cigarettes a day . ROS: 13:49 Constitutional: Negative for fever, chills, and weight loss. kb 13:49 Respiratory: Positive for cough, Negative for dyspnea on exertion, hemoptysis, orthopnea, pleurisy, shortness of breath, sputum production, wheezing. 13:49 All other systems are negative. Exam: 13:49 Constitutional: This is a well developed, well nourished patient who is awake, alert, kb and in no acute distress. Head/Face: Normocephalic, atraumatic. ENT: Moist Mucous membranes Cardiovascular: Regular rate and rhythm with a normal S1 and S2. No gallops, murmurs, or rubs. No pulse deficits. Respiratory: Respirations even and unlabored. No increased work of breathing. Talking in full sentences Abdomen/GI: Soft, non-tender. No distention Skin: Warm, dry with normal turgor. Normal color. MS/ Extremity: Pulses equal, no cyanosis. Neurovascular intact. Full, normal range of motion. Neuro: Awake and alert, GCS 15, oriented to person, place, time, and situation. Moves all extremities. Normal gait. Vital Signs: 12:30 BP 118 / 71; Pulse 68; Resp 18 S; Temp 97.1(TE); Pulse Ox 99% on R/A; Weight 87.54 kg aa5 (R); Height 5 ft. 2 in. (157.48 cm) (R); 12:30 Body Mass Index 35.30 (87.54 kg, 157.48 cm) aa5 MDM: 12:25 Patient medically screened. kb 13:47 Differential Diagnosis: Bronchitis Influenza Upper Respiratory Infection Pneumonia kb Other covid. Data reviewed: vital signs, nurses notes. Consideration of Admission/Observation Escalation of care including admission/observation considered. Test considered but Not performed: Labs: cbc, bmp considered, but would not change plan of care. pt is nontoxic in appearance, vss, no resp distress, 99% on room air. . Counseling: I had a detailed discussion with the patient and/or guardian regarding: the historical points, exam findings, and any diagnostic results supporting the discharge/admit diagnosis, radiology results, the need for outpatient follow up, a family practitioner, to return to the emergency department if symptoms worsen or persist or if there are any questions or concerns that arise at home. 07/10 12:30 Order name: Chest Pa And Lat (2 Views) XRAY; Complete Time: 13:18 kb Administered Medications: No medications were administered Disposition Summary: 07/10/22 13:22 Discharge Ordered Location: Home kb Condition: Stable kb Diagnosis - Pneumonia due to SARS-associated coronavirus kb - SARS-associated coronavirus as the cause of diseases classified elsewhere kb Followup: kb - With: Emergency Department - When: As needed - Reason: Worsening of condition Followup: kb - With: Private Physician - When: 2 - 3 days - Reason: Recheck today's complaints, Continuance of care, Re-evaluation by your physician Discharge Instructions: - Discharge Summary Sheet kb - Community-Acquired Pneumonia, Adult, Msin-un-Tgyg kb - COVID-19 kb Forms: - Medication Reconciliation Form kb - Thank You Letter kb - Antibiotic Education kb - Prescription Opioid Use kb - Work release form ss Prescriptions: - Prednisone 20 mg Oral Tablet - take 1 tablet by ORAL route once daily for 5 days; 5 tablet; Refills: 0, kb Product Selection Permitted - Zithromax 500 mg Oral Tablet - take 1 tablet by ORAL route once daily for 5 days; 5 tablet; Refills: 0, kb Product Selection Permitted Signatures: Dispatcher [employer] Virginia Dunne, SHALOMC ERICK-Maria De Jesus Kaur, RN RN aa5
--- NOTE | 2022-07-10 13:23 | ER ---
Nurse's Notes [facility] Name: Iqra Morales Age: 51 yrs Sex: Female : 1970 Arrival Date: 07/10/2022 Time: 12:19 Bed IW3 Private MD: Diagnosis: Pneumonia due to SARS-associated coronavirus;SARS-associated coronavirus as the cause of diseases classified elsewhere Presentation: 07/10 12:26 Chief complaint: Patient states: "I was here with Pneumonia 1 month ago". Pt reports aa5 cough and tested positive for COVID yesterday. Pt states "I am getting AA treatment and I live there". Onset of symptoms was June 2022. 12:26 Risk Assessment: Do you want to hurt yourself or someone else? Patient reports no aa5 desire to harm self or others. 12:26 Coronavirus screen: Client reports previous positive COVID test result. Ebola Screen: aa5 Patient denies travel to an Ebola-affected area in the 21 days before illness onset. 12:26 Method Of Arrival: Ambulatory aa5 12:30 Initial Sepsis Screen: Does the patient meet any 2 criteria? No. Patient's initial aa5 sepsis screen is negative. Does the patient have a suspected source of infection? No. Patient's initial sepsis screen is negative. 12:30 Acuity: BIANCA 3 aa5 Historical: - Allergies: 12:29 No Known Allergies; aa5 - PMHx: 12:26 Depression; Hyperlipidemia; Hypertension; Hypothyroidism; aa5 12:29 Cirrhosis of liver; aa5 - Immunization history:: Client reports having NOT received the Covid vaccine. - Social history:: Smoking status: Patient reports the use of cigarette tobacco products, 4-5 cigarettes a day . Assessment: 13:36 Reassessment: Patient is alert, oriented x 3, equal unlabored respirations, skin aa5 warm/dry/pink. Vital Signs: 12:30 BP 118 / 71; Pulse 68; Resp 18 S; Temp 97.1(TE); Pulse Ox 99% on R/A; Weight 87.54 kg aa5 (R); Height 5 ft. 2 in. (157.48 cm) (R); 12:30 Body Mass Index 35.30 (87.54 kg, 157.48 cm) aa5 ED Course: 12:19 Patient arrived in ED. as 12:25 Virginia Trevino FNP-C is PSYCHIATRICP. kb 12:25 Dion Wan MD is Attending Physician. kb 12:26 Arm band placed on. aa5 12:31 Triage completed. aa5 12:46 Chest Pa And Lat (2 Views) XRAY In Process Unspecified. EDMS 13:36 No provider procedures requiring assistance completed. Patient did not have IV access aa5 during this emergency room visit. Administered Medications: No medications were administered Medication: 13:36 VIS not applicable for this client. aa5 Outcome: 13:22 Discharge ordered by . kb 13:36 Discharged to home ambulatory. aa5 13:36 Condition: stable 13:36 Discharge instructions given to patient, Instructed on discharge instructions, follow up and referral plans. medication usage, Demonstrated understanding of instructions, follow-up care, medications, Prescriptions given X 2. 13:37 Patient left the ED. aa5 Signatures: Dispatcher [employer] EDOR Virginia Trevino FNP-C FNP-Elizabeth Lopez Audri, RN RN aa5 Corrections: (The following items were deleted from the chart) 12:29 12:26 Chief complaint: Patient states: "I was here with Pneumonia 1 month ago". Pt aa5 reports cough and tested positive for COVID yesterday. aa5 12:32 12:30 BP 118 / 71; Pulse 68bpm; Resp 18bpm; Spontaneous; Pulse Ox 99% RA; 87.54 kg aa5 Reported; Height 5 ft. 2 in. Reported; BMI: 35.3; aa5
[2022-07-10 13:40] VITALS: BP 118/71; TEMP 97.1; O2SAT 99
== END 2022-07-10 13:37 | disposition home or self-care (01) ==
LOC: ER 12:17
DX: U07.1 COVID-19 (principal); J12.82 Pneumonia due to coronavirus disease 2019; I10 Essential (primary) hypertension; F17.210 Nicotine dependence, cigarettes, uncomplicated
CPT/HCPCS: 71046; 99283